=== PATIENT | male | born 1955 | race Caucasian/White ===

== ENCOUNTER → 2020-02-06 09:28 | Outpatient (BNVA) | payer MEDICARE, MEDICAID, SELFPAY | PROVIDERS: PCP Internal Medicine; Visit Provider Internal Medicine | DX: I48.0 Paroxysmal atrial fibrillation (principal); Z51.81 Encounter for therapeutic drug level monitoring; Z79.01 Long term (current) use of anticoagulants | CPT/HCPCS: 85610 ==

== ENCOUNTER 2020-02-07 07:23 | Outpatient (REF) | payer MEDICARE, MEDICAID, SELFPAY ==
[2020-02-07 08:33] LABS: MANUAL DIFF FLAG NO
[2020-02-07 08:56] LABS: Basophils Percent Auto 0.4 % (0-2); Eosinophils Absolute Auto 0.1 X10*3/uL (0.0-0.4); Eosinophils Percent Auto 1.5 % (0-4); Hematocrit 43.6 % (42-52); Hemoglobin 14.1 g/dl (14.0-18.0); Imm Gran Abs Auto 0.03 X10*3/uL (0.00-0.03); Imm Gran Pct Auto 0.4 % (0.0-0.4); Lymphocytes Absolute Auto 1.2 X10*3/uL (1.2-4.9); Lymphocytes Percent Auto 15.2 % (20-40); Mean Corpuscular HGB Conc 32.3 g/dl (31.0-36.0); Mean Corpuscular Volume 86.7 fL (80-98); Monocytes Absolute Auto 0.7 X10*3/uL (0.1-1.2); Monocytes Percent Auto 8.5 % (2-11); Neutrophils Absolute Auto 5.8 X10*3/uL (2.0-8.3); Platelet Count 163 X10*3/uL (160-400); Red Blood Count 5.03 X10*6/uL (4.60-5.80); Red Cell Distribution Width 13.7 % (11.0-16.0); White Blood Count 7.9 X10*3/uL (4.8-10.8)
[2020-02-07 09:42] LABS: Albumin Level 3.8 g/dL (3.5-5.0); Anion Gap 10 (12-20); Blood Urea Nitrogen 16 mg/dL (9-16); Calcium 8.9 mg/dL (8.4-10.2); Carbon Dioxide 33 mmol/L (22-29); Chloride 103 mmol/L (96-108); Estimated Glomerular Filt Rate > 60; Magnesium 2.2 mg/dL (1.6-2.6); Phosphorus 3.3 mg/dL (2.7-4.5); Potassium 4.3 mmol/l (3.3-5.1); Sodium 142 mmol/L (135-145)
[2020-02-09 23:07] LABS: Calcium (PTHI) 9.1 mg/dL (8.6-10.3); PTHI 69 pg/mL (14-64)
== END 2020-02-07 07:24 | disposition home or self-care (01) ==
LOC: HO.LAB 07:23
PROVIDERS: PCP Internal Medicine; Visit Provider Internal Medicine Hypertension Specialist
DX: I13.10 Hypertensive heart and chronic kidney disease without heart failure, with stage 1 through stage 4 chronic kidney disease, or unspecified chronic kidney disease (principal); N18.2 Chronic kidney disease, stage 2 (mild)
CPT/HCPCS: 36415; 80051; 82040; 82310; 82565; 83735; 83970; 84100; 84520; 85025

== ENCOUNTER → 2020-03-05 09:02 | Outpatient (BNVA) | payer MEDICARE, MEDICAID, SELFPAY | PROVIDERS: PCP Internal Medicine; Visit Provider Internal Medicine | DX: I48.0 Paroxysmal atrial fibrillation (principal); Z51.81 Encounter for therapeutic drug level monitoring; Z79.01 Long term (current) use of anticoagulants | CPT/HCPCS: 85610; 99211 ==

== ENCOUNTER → 2020-04-02 09:10 | Outpatient (BNVA) | payer MEDICARE, MEDICAID, SELFPAY | PROVIDERS: PCP Internal Medicine; Visit Provider Internal Medicine | DX: I48.0 Paroxysmal atrial fibrillation (principal); Z51.81 Encounter for therapeutic drug level monitoring; Z79.01 Long term (current) use of anticoagulants | CPT/HCPCS: 85610; 99211 ==

== ENCOUNTER 2020-04-26 13:03 | Outpatient (REF) | payer MEDICARE, MEDICAID, SELFPAY | END 2020-04-26 13:04 | disposition home or self-care (01) | LOC: HO.LAB 13:03 | PROVIDERS: Visit Provider Internal Medicine | DX: Z20.822 Contact with and (suspected) exposure to COVID-19 (principal) | CPT/HCPCS: 36415; C9803; U0003 ==

== ENCOUNTER → 2020-05-23 08:23 | Outpatient (BNVA) | payer MEDICARE, MEDICAID, SELFPAY | PROVIDERS: PCP Internal Medicine; Visit Provider Internal Medicine | DX: I48.0 Paroxysmal atrial fibrillation (principal); Z51.81 Encounter for therapeutic drug level monitoring; Z79.01 Long term (current) use of anticoagulants | CPT/HCPCS: 85610; 99211 ==

== ENCOUNTER → 2020-06-06 08:16 | Outpatient (BNVA) | payer MEDICARE, MEDICAID, SELFPAY | PROVIDERS: PCP Internal Medicine; Visit Provider Internal Medicine | DX: I48.0 Paroxysmal atrial fibrillation (principal); Z51.81 Encounter for therapeutic drug level monitoring; Z79.01 Long term (current) use of anticoagulants | CPT/HCPCS: 85610; 99211 ==

== ENCOUNTER → 2020-07-04 08:04 | Outpatient (BNVA) | payer MEDICARE, MEDICAID, SELFPAY | PROVIDERS: PCP Internal Medicine; Visit Provider Internal Medicine | DX: I48.0 Paroxysmal atrial fibrillation (principal); Z51.81 Encounter for therapeutic drug level monitoring; Z79.01 Long term (current) use of anticoagulants | CPT/HCPCS: 85610; 99211 ==

== ENCOUNTER → 2020-08-01 08:00 | Outpatient (BNVA) | payer MEDICARE, MEDICAID, SELFPAY | PROVIDERS: PCP Internal Medicine; Visit Provider Internal Medicine | DX: I48.0 Paroxysmal atrial fibrillation (principal); Z79.01 Long term (current) use of anticoagulants; Z51.81 Encounter for therapeutic drug level monitoring | CPT/HCPCS: 85610; 99211 ==

== ENCOUNTER → 2020-08-22 08:01 | Outpatient (BNVA) | payer MEDICARE, MEDICAID, SELFPAY | PROVIDERS: PCP Internal Medicine; Visit Provider Internal Medicine | DX: I48.0 Paroxysmal atrial fibrillation (principal); Z51.81 Encounter for therapeutic drug level monitoring; Z79.01 Long term (current) use of anticoagulants | CPT/HCPCS: 85610; 99211 ==

== ENCOUNTER → 2020-09-19 07:57 | Outpatient (BNVA) | payer MEDICARE, MEDICAID, SELFPAY | PROVIDERS: PCP Internal Medicine; Visit Provider Internal Medicine | DX: I48.0 Paroxysmal atrial fibrillation (principal); Z51.81 Encounter for therapeutic drug level monitoring; Z79.01 Long term (current) use of anticoagulants | CPT/HCPCS: 85610; 99211 ==

== ENCOUNTER → 2020-10-17 08:03 | Outpatient (BNVA) | payer MEDICARE, MEDICAID, SELFPAY | PROVIDERS: PCP Internal Medicine; Visit Provider Internal Medicine | DX: I48.0 Paroxysmal atrial fibrillation (principal); Z51.81 Encounter for therapeutic drug level monitoring; Z79.01 Long term (current) use of anticoagulants | CPT/HCPCS: 85610; 99211 ==

== ENCOUNTER → 2020-11-14 08:00 | Outpatient (BNVA) | payer MEDICARE, MEDICAID, SELFPAY | PROVIDERS: PCP Internal Medicine; Visit Provider Internal Medicine | DX: I48.0 Paroxysmal atrial fibrillation (principal); Z79.01 Long term (current) use of anticoagulants; Z51.81 Encounter for therapeutic drug level monitoring | CPT/HCPCS: 85610; 99211 ==

== ENCOUNTER 2020-11-15 13:40 | Outpatient (REF) | payer MEDICARE, MEDICAID, SELFPAY ==
--- NOTE | ~2020-11-15 | US_ITS ---
EXAMINATION: US VENOUS ULTRASOUND WITH DOPPLER LOWER EXTREMITY, LEFT CLINICAL INFORMATION: Venous stasis ulcer left lower extremity. Assess for occult DVT. COMPARISON: Lower extremity reflux venous ultrasound 07/12/2018. TECHNIQUE: Ultrasound of the deep veins is performed from the hip to the calf with compression sonography and color and pulse Doppler assessment. Spectral analysis with color-flow imaging is performed. Evaluation of the calf veins is limited due to bandaging and body habitus. FINDINGS: There is normal venous compression and respiratory variation and augmented flow. The visualized common femoral vein, superficial femoral vein, profunda femoral vein, popliteal vein, and the trifurcation region shows no evidence of deep venous thrombosis. Evaluation of the calf veins is limited due to bandaging and body habitus. No visible popliteal fossa cyst or soft tissue fluid collection. US/US venous duplex LE LT IMPRESSION: 1. No DVT demonstrated in the left lower extremity. 2. If the patient's symptoms persist, followup ultrasound in 5 days 7 days might be of value to exclude proximal propagation from a non-visualized calf vein.
== END 2020-11-15 13:41 | disposition home or self-care (01) ==
LOC: HO.HMGCX 13:40
PROVIDERS: PCP Internal Medicine; Visit Provider Emergency Medicine
DX: R60.0 Localized edema (principal); M79.89 Other specified soft tissue disorders; I87.2 Venous insufficiency (chronic) (peripheral)
CPT/HCPCS: 93971

== ENCOUNTER 2020-11-22 07:58 | Outpatient (RCR) | payer MEDICARE, MEDICAID, SELFPAY | END 2021-01-01 15:47 | disposition home or self-care (01) | LOC: HO.WCC 07:58 | PROVIDERS: PCP Internal Medicine; Visit Provider Physician Assistant | DX: I87.333 Chronic venous hypertension (idiopathic) with ulcer and inflammation of bilateral lower extremity (principal); L97.812 Non-pressure chronic ulcer of other part of right lower leg with fat layer exposed; L97.221 Non-pressure chronic ulcer of left calf limited to breakdown of skin; Z79.01 Long term (current) use of anticoagulants; Z87.891 Personal history of nicotine dependence | CPT/HCPCS: 11042; 29581; 97597; 99212; 99213 ==

== ENCOUNTER → 2020-12-12 08:00 | Outpatient (BNVA) | payer MEDICARE, MEDICAID, SELFPAY | PROVIDERS: PCP Internal Medicine; Visit Provider Internal Medicine | DX: I48.0 Paroxysmal atrial fibrillation (principal); Z51.81 Encounter for therapeutic drug level monitoring; Z79.01 Long term (current) use of anticoagulants | CPT/HCPCS: 85610; 99211 ==

== ENCOUNTER → 2020-12-26 13:25 | Outpatient (BNVA) | payer MEDICARE, MEDICAID, SELFPAY | PROVIDERS: PCP Internal Medicine; Visit Provider Surgery Vascular Surgery | DX: I83.228 Varicose veins of left lower extremity with both ulcer of other part of lower extremity and inflammation (principal) | CPT/HCPCS: 99212 ==

== ENCOUNTER 2021-01-08 07:53 | Outpatient (REF) | payer MEDICARE, MEDICAID, SELFPAY ==
--- NOTE | ~2021-01-08 | US_ITS ---
EXAMINATION: RIGHT and LEFT LOWER EXTREMITY VENOUS ULTRASOUND (Reflux Exam) CLINICAL INDICATION: leg pain and varicose veins. COMPARISON: Previous exam October 2020 TECHNIQUE: Color flow triplex imaging and compression Doppler was performed to evaluate both the deep and the superficial systems bilaterally. To evaluate the superficial system, the examination was performed in the upright position. Color-flow Doppler ultrasound and compression ultrasound were utilized. In addition, maneuvers were utilized to demonstrate reflux. FINDINGS: 1. DEEP VENOUS ULTRASOUND OF THE RIGHT LOWER EXTREMITY: Respiratory variation, normal compression and augmented flow are noted in the right common femoral vein as well as the right popliteal vein and there is no evidence of deep venous thrombosis at these locations. There is no evidence of reflux in the deep system in either the common femoral vein or the popliteal vein. There is no evidence of a Eric's cyst. 2. SUPERFICIAL ULTRASOUND WITH DOPPLER OF RIGHT LOWER EXTREMITY: The right great saphenous vein at the saphenofemoral junction measures 6 mm, at the mid thigh 3 mm, [id number] 2 mm, [id number] 4 mm, at mid calf 3 mm and at the ankle measures 3 mm. There is right great saphenous vein measuring 1.5 seconds below the knee, 2.6 seconds at mid calf and 1.1 seconds at the ankle. There is an accessory lateral greater saphenous vein that measures 4 mm and does not demonstrate reflux.. The right small saphenous vein measures 2-3 mm and shows no reflux. There is a leather colorer in the distal calf that measures 3 mm and does not demonstrate reflux and there is a varicosity in the proximal thigh that measures 4 mm and does not demonstrate reflux. 3. DEEP VENOUS ULTRASOUND OF THE LEFT LOWER EXTREMITY: Respiratory variation, normal compression and augmented flow are noted in the left common femoral vein as well as the left popliteal vein and there is no evidence of deep venous thrombosis at these locations. There is no evidence of reflux in the deep system in either the common femoral vein or the popliteal vein. . There is no evidence of a Eric's cyst. 4. SUPERFICIAL ULTRASOUND WITH DOPPLER OF LEFT LOWER EXTREMITY: Left great saphenous vein at the saphenofemoral junction measures 7 mm, at the mid thigh 4 mm, xhjzt-zhm-jguq 3 mm, mssnj-ggp-ogvp 1 mm. The left greater saphenous vein in not seen midcalf and ankle. There is left greater saphenous vein reflux measuring 1.8 seconds at the saphenofemoral junction, 2.4 seconds mid thigh, 3.4 seconds above the knee and 3.3 seconds at the knee. There is an accessory left lateral greater saphenous vein that measures 5 mm and does not demonstrate reflux. The left small saphenous vein measures 3 mm and shows no reflux. There is a varicosity in the proximal thigh that measures 4 mm and demonstrates 1.9 seconds reflux. There are additional varicosities in the mid and distal thigh that measure 3 to 4 mm and do not demonstrate reflux. US/US venous duplex LE BI IMPRESSION: 1. No evidence of reflux or thrombus in the common femoral veins or popliteal veins bilaterally. 2. Bilateral greater saphenous vein reflux.
== END 2021-01-08 07:54 | disposition home or self-care (01) ==
LOC: HO.US 07:53
PROVIDERS: PCP Internal Medicine; Visit Provider Surgery Vascular Surgery
DX: I83.893 Varicose veins of bilateral lower extremities with other complications (principal); I83.12 Varicose veins of left lower extremity with inflammation
CPT/HCPCS: 93970

== ENCOUNTER → 2021-01-09 08:02 | Outpatient (BNVA) | payer MEDICARE, MEDICAID, SELFPAY | PROVIDERS: PCP Internal Medicine; Visit Provider Internal Medicine | DX: I48.0 Paroxysmal atrial fibrillation (principal); Z51.81 Encounter for therapeutic drug level monitoring; Z79.01 Long term (current) use of anticoagulants | CPT/HCPCS: 85610; 99211 ==

== ENCOUNTER → 2021-01-30 08:46 | Outpatient (BNVA) | payer MEDICARE, MEDICAID, SELFPAY | PROVIDERS: PCP Internal Medicine; Visit Provider Surgery Vascular Surgery | DX: I83.12 Varicose veins of left lower extremity with inflammation (principal) | CPT/HCPCS: 99212 ==

== ENCOUNTER → 2021-02-06 08:03 | Outpatient (BNVA) | payer MEDICARE, MEDICAID, SELFPAY | PROVIDERS: PCP Internal Medicine; Visit Provider Internal Medicine | DX: I48.0 Paroxysmal atrial fibrillation (principal); Z51.81 Encounter for therapeutic drug level monitoring; Z79.01 Long term (current) use of anticoagulants | CPT/HCPCS: 85610; 99211 ==

== ENCOUNTER → 2021-02-21 07:32 | Outpatient (BNVA) | payer MEDICARE, MEDICAID, SELFPAY | PROVIDERS: PCP Internal Medicine; Visit Provider Surgery Vascular Surgery | DX: I83.12 Varicose veins of left lower extremity with inflammation (principal) | CPT/HCPCS: 36482 ==

== ENCOUNTER 2021-02-24 14:16 | Outpatient (REF) | payer MEDICARE, MEDICAID, SELFPAY ==
--- NOTE | ~2021-02-24 | US_ITS ---
EXAMINATION: US VENOUS ULTRASOUND WITH DOPPLER LOWER EXTREMITY, LEFT CLINICAL INFORMATION: Post vena seal procedure. COMPARISON: Previous exam 01/08/2021 TECHNIQUE: Ultrasound of the deep veins is performed from the hip to the calf with compression sonography and color and pulse Doppler assessment. Spectral analysis with color-flow imaging is performed. FINDINGS: There is normal venous compression and respiratory variation and augmented flow. The visualized common femoral vein, superficial femoral vein, profunda femoral vein, popliteal vein, and the trifurcation region shows no evidence of deep venous thrombosis. There is echogenic material seen in the left greater saphenous vein post vena seal procedure. This extends to 6.7 cm from the saphenofemoral junction. The left greater saphenous vein is closed US/US venous duplex LE LT IMPRESSION: No DVT demonstrated in the left lower extremity.
== END 2021-02-24 14:17 | disposition home or self-care (01) ==
LOC: HO.HMGCX 14:16
PROVIDERS: PCP Internal Medicine; Visit Provider Surgery Vascular Surgery
DX: M79.605 Pain in left leg (principal)
CPT/HCPCS: 93971

== ENCOUNTER 2021-02-26 08:26 | Outpatient (REF) | payer MEDICARE, MEDICAID, SELFPAY ==
[2021-02-26 09:14] LABS: Appearance Urine HAZY; Color Urine YELLOW; Glucose Urine UA NEG (NEG); Leukocyte Esterase Urine NEG (NEG); Nitrite Urine NEG (NEG); Specific Gravity - Urine 1.015 (1.005-1.025); Urine Blood NEG (NEG); Urine Ketones NEG (NEG); Urine Protein NEG (NEG-TRACE)
[2021-02-26 09:21] LABS: Anion Gap 9 (12-20); Blood Urea Nitrogen 12 mg/dL (9-16); Carbon Dioxide 30 mmol/L (22-29); Chloride 106 mmol/L (96-108); Estimated Glomerular Filt Rate > 60; Potassium 4.3 mmol/L (3.3-5.1); Sodium 141 mmol/L (135-145)
[2021-02-26 09:37] LABS: Creatinine Urine 79.71 mg/dL; Protein/Creatinine Ratio, Ur 0.13 (<0.2); Total Protein Urine Random 10 mg/dL (<12)
== END 2021-02-26 08:27 | disposition home or self-care (01) ==
LOC: HO.LAB 08:26
PROVIDERS: Internal Medicine Hypertension Specialist; Visit Provider Psychiatry & Neurology Neurology
DX: I13.10 Hypertensive heart and chronic kidney disease without heart failure, with stage 1 through stage 4 chronic kidney disease, or unspecified chronic kidney disease (principal); E66.01 Morbid (severe) obesity due to excess calories
CPT/HCPCS: 36415; 80051; 81003; 82310; 82565; 84156; 84520

== ENCOUNTER → 2021-03-06 08:02 | Outpatient (BNVA) | payer MEDICARE, MEDICAID, SELFPAY | PROVIDERS: PCP Internal Medicine; Visit Provider Internal Medicine | DX: I83.12 Varicose veins of left lower extremity with inflammation (principal); I48.0 Paroxysmal atrial fibrillation; R23.8 Other skin changes; E66.01 Morbid (severe) obesity due to excess calories; Z87.891 Personal history of nicotine dependence; Z51.81 Encounter for therapeutic drug level monitoring; Z79.01 Long term (current) use of anticoagulants | CPT/HCPCS: 85610; 99211; 99212 ==

== ENCOUNTER → 2021-03-12 08:22 | Outpatient (BNVA) | payer MEDICARE, MEDICAID, SELFPAY | PROVIDERS: PCP Internal Medicine; Visit Provider Internal Medicine | DX: I48.0 Paroxysmal atrial fibrillation (principal); Z51.81 Encounter for therapeutic drug level monitoring; Z79.01 Long term (current) use of anticoagulants | CPT/HCPCS: 85610; 99211 ==

== ENCOUNTER → 2021-03-21 08:29 | Outpatient (BNVA) | payer MEDICARE, MEDICAID, SELFPAY | PROVIDERS: PCP Internal Medicine; Visit Provider Internal Medicine | DX: I48.0 Paroxysmal atrial fibrillation (principal); Z51.81 Encounter for therapeutic drug level monitoring; Z79.01 Long term (current) use of anticoagulants | CPT/HCPCS: 85610; 99211 ==

== ENCOUNTER 2021-11-04 13:53 | Outpatient (RCR) | payer MEDICARE, MEDICAID, SELFPAY | END 2021-12-01 14:03 | disposition home or self-care (01) | LOC: HO.WCC 13:53 | PROVIDERS: PCP Internal Medicine; Visit Provider Physician Assistant | DX: I87.332 Chronic venous hypertension (idiopathic) with ulcer and inflammation of left lower extremity (principal); I87.321 Chronic venous hypertension (idiopathic) with inflammation of right lower extremity; L97.822 Non-pressure chronic ulcer of other part of left lower leg with fat layer exposed; I73.9 Peripheral vascular disease, unspecified; I10 Essential (primary) hypertension; Z87.891 Personal history of nicotine dependence | CPT/HCPCS: 11042; 97597; 97598; 99212 ==

== ENCOUNTER 2022-03-02 08:27 | Outpatient (REF) | payer MEDICARE, MEDICAID, SELFPAY ==
[2022-03-02 09:36] LABS: Anion Gap 13 (12-20); Blood Urea Nitrogen 15 mg/dL (9-16); Calcium 9.4 mg/dL (8.4-10.2); Carbon Dioxide 29 mmol/L (22-29); Chloride 102 mmol/L (96-108); Estimated Glomerular Filt Rate > 60; Glucose Random 93 mg/dL (60-115); Potassium 4.4 mmol/L (3.3-5.1); Sodium 140 mmol/L (135-145)
[2022-03-02 10:47] LABS: Creatinine Urine 58.83 mg/dL; Protein/Creatinine Ratio, Ur 0.31 (<0.2); Total Protein Urine Random 18 mg/dL (<12)
== END 2022-03-02 08:28 | disposition home or self-care (01) ==
LOC: HO.LAB 08:27
PROVIDERS: PCP Internal Medicine; Visit Provider Internal Medicine Hypertension Specialist
DX: I10 Essential (primary) hypertension (principal)
CPT/HCPCS: 36415; 80048; 84156

== ENCOUNTER 2022-11-03 11:06 | Outpatient (REF) | payer MEDICARE, MEDICAID, SELFPAY ==
[2022-11-03 13:37] LABS: MANUAL DIFF FLAG NO
[2022-11-03 13:59] LABS: Basophils Percent Auto 0.7 % (0-2); Eosinophils Absolute Auto 0.2 X10*3/uL (0.0-0.4); Eosinophils Percent Auto 4.1 % (0-4); Hematocrit 43.3 % (42.0-52.0); Hemoglobin 13.5 g/dl (14.0-18.0); Imm Gran Abs Auto 0.01 X10*3/uL (0.00-0.03); Imm Gran Pct Auto 0.2 % (0.0-0.4); Mean Corpuscular HGB Conc 31.2 g/dl (31.0-36.0); Mean Corpuscular Hemoglobin 26.6 pg (27.0-33.0); Mean Corpuscular Volume 85.4 fL (80.0-98.0); Mean Platelet Volume 11.3 fL (9.4-12.4); Monocytes Absolute Auto 0.6 X10*3/uL (0.1-1.2); Monocytes Percent Auto 9.9 % (2-11); Neutrophils Percent Auto 68.1 % (45-73); Platelet Count 190 X10*3/uL (160-400); Red Blood Count 5.07 X10*6/uL (4.60-5.80); Red Cell Distribution Width 14.3 % (11.0-16.0); White Blood Count 5.8 X10*3/uL (4.8-10.8)
[2022-11-03 14:16] LABS: Estimated Average Glucose 114 mg/dL; Hemoglobin A1C 130.2328 umol/L; Hemoglobin A1c % 5.6 %
[2022-11-03 18:06] LABS: Alanine Aminotransferase 8 U/L (0-40); Albumin Level 3.7 g/dL (3.5-5.0); Alkaline Phosphatase 94 U/L (39-117); Anion Gap 12 (12-20); Aspartate Amino Transferase 14 U/L (5-37); Bilirubin Direct 0.4 mg/dL (0.0-0.5); Bilirubin Total 0.8 mg/dL (0.0-1.0); Blood Urea Nitrogen 9 mg/dL (9-16); Calcium 9.6 mg/dL (8.4-10.2); Carbon Dioxide 31 mmol/L (22-29); Chloride 102 mmol/L (96-108); Cholesterol 122 mg/dL; Estimated Glomerular Filt Rate > 60; Glucose Random 94 mg/dL (60-115); HDL Cholesterol 45 mg/dL; LDL Cholesterol Calculated 66 mg/dl; Potassium 4.2 mmol/L (3.3-5.1); Sodium 141 mmol/L (135-145); Total Protein 6.8 g/dL (6.5-8.0); Triglycerides 56 mg/dL
== END 2022-11-03 11:07 | disposition home or self-care (01) ==
LOC: HO.HHCL 11:06
PROVIDERS: Visit Provider Internal Medicine
DX: I10 Essential (primary) hypertension (principal); E66.01 Morbid (severe) obesity due to excess calories; Z79.899 Other long term (current) drug therapy; Z68.42 Body mass index [BMI] 45.0-49.9, adult
CPT/HCPCS: 36415; 80048; 80061; 80076; 83036; 85025

== ENCOUNTER 2023-03-02 07:21 | Outpatient (REF) | payer MEDICARE, MEDICAID, SELFPAY ==
[2023-03-02 08:46] LABS: Anion Gap 13 (12-20); Blood Urea Nitrogen 13 mg/dL (9-16); Calcium 9.2 mg/dL (8.4-10.2); Carbon Dioxide 32 mmol/L (22-29); Chloride 104 mmol/L (96-108); Estimated Glomerular Filt Rate > 60; Glucose Random 98 mg/dL (60-115); Potassium 4.1 mmol/L (3.3-5.1); Sodium 145 mmol/L (135-145)
== END 2023-03-02 07:22 | disposition home or self-care (01) ==
LOC: HO.LAB 07:21
PROVIDERS: PCP Internal Medicine; Visit Provider Internal Medicine Hypertension Specialist
DX: I10 Essential (primary) hypertension (principal)
CPT/HCPCS: 36415; 80048

== ENCOUNTER 2023-08-31 08:06 | Outpatient (REF) | payer MEDICARE, MEDICAID, SELFPAY ==
[2023-08-31 08:27] LABS: MANUAL DIFF FLAG NO
[2023-08-31 09:02] LABS: Basophils Percent Auto 0.7 % (0-2); Eosinophils Absolute Auto 0.1 X10*3/uL (0.0-0.4); Eosinophils Percent Auto 1.7 % (0-4); Hematocrit 41.3 % (42.0-52.0); Hemoglobin 13.5 g/dl (14.0-18.0); Imm Gran Abs Auto 0.02 X10*3/uL (0.00-0.03); Imm Gran Pct Auto 0.3 % (0.0-0.4); Lymphocytes Percent Auto 17.9 % (20-40); Mean Corpuscular HGB Conc 32.7 g/dl (31.0-36.0); Mean Corpuscular Hemoglobin 27.6 pg (27.0-33.0); Mean Corpuscular Volume 84.3 fL (80.0-98.0); Mean Platelet Volume 11.1 fL (9.4-12.4); Monocytes Absolute Auto 0.5 X10*3/uL (0.1-1.2); Monocytes Percent Auto 9.1 % (2-11); Neutrophils Absolute Auto 4.1 x10*3/uL (2.0-8.3); Neutrophils Percent Auto 70.3 % (45-73); Platelet Count 153 X10*3/uL (160-400); Red Cell Distribution Width 14.6 % (11.0-16.0); White Blood Count 5.8 X10*3/uL (4.8-10.8)
[2023-08-31 09:47] LABS: Anion Gap 15 (12-20); Blood Urea Nitrogen 11 mg/dL (9-16); Calcium 9.7 mg/dL (8.4-10.2); Carbon Dioxide 26 mmol/L (22-29); Chloride 105 mmol/L (96-108); Estimated Glomerular Filt Rate > 60; Sodium 142 mmol/L (135-145); Uric Acid 5.9 mg/dL (3.4-7.0)
[2023-08-31 09:52] LABS: Parathyroid Hormone Intact 124.5 pg/mL (8.7-77.1)
[2023-08-31 10:02] LABS: Vitamin D 25-OH Total 40.4 ng/mL (>30)
[2023-09-04 13:38] LABS: Renin 1.16 ng/mL/h (0.25-5.82)
== END 2023-08-31 08:07 | disposition home or self-care (01) ==
LOC: HO.LAB 08:06
PROVIDERS: PCP Internal Medicine; Visit Provider Internal Medicine
DX: I10 Essential (primary) hypertension (principal)
CPT/HCPCS: 36415; 80051; 82088; 82306; 82310; 82565; 83970; 84244; 84520; 84550; 85025

== ENCOUNTER → 2023-11-16 08:26 | Outpatient (REF) | payer MEDICARE, MEDICAID, SELFPAY ==
--- NOTE | 2023-11-16 08:31 | CA_ITS ---
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 The visually estimated ejection fraction is between 60-65%. 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 - The left atrium is severely dilated. - No obvious valvular pathology seen on this study. Findings Procedure Information Contrast agent, definity, is being given per protocol without apparent complications. The quality of the study was technically difficult. The study quality is limited by patients body habitus. Left Ventricle Normal left ventricular cavity size. There is mildly increased left ventricular wall thickness. The left ventricular systolic function is normal. The visually estimated ejection fraction is between 60-65%. Diastolic function is indeterminate on the basis of available data. 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 Right Ventricle Mildly increased right ventricular cavity size. There is moderately decreased right ventricular systolic function. Atria The left atrium is severely dilated. The right atrium is normal in size. Aortic Valve There is a normal trileaflet aortic valve. There is no aortic valve stenosis. There is no aortic valve regurgitation. Mitral Valve There is mild mitral annular calcification. There is trace mitral valve regurgitation. There is no mitral valve stenosis. Pulmonic Valve The pulmonic valve is likely normal. Tricuspid Valve Normal tricuspid valve structure. There is trace tricuspid valve regurgitation. Tricuspid regurgitation envelope is inadequate for calculation of right ventricular systolic pressure. Great Vessels The asc aorta is normal in size. Venous The inferior vena cava was not well visualized. Pericardium/Pleural There is a trivial pericardial effusion. Prior Study Comparison No significant change compared to prior study dated: 10/30/2019. Due to image quality difficult to compare, but wall motion probably similar on image comparison. Recommendations, Care & Conclusions No obvious valvular pathology seen on this study. Measurements 2D Linear Measurements IVSd: 1.18 0.6-0.9/0.6-1.0 cm LVIDd: 5.49 3.9-5.3/4.2-5.9 cm LVIDd Index: 2.63 2.4-3.2/2.2-3.1 cm/m2 LVIDs: 3.08 2.0-3.6 cm LVPWd: 1.07 0.7-1.1 cm LA Diam: 5.00 2.7-3.8/3.0-4.0 cm LAIDs Index: 2.39 1.5-2.3 cm/m2 LV Mass: 310.14 67-162/88-224 g LV Mass Index: 148.39 43-95/49-115 g/m2 LVOT Diam: 2.00 3.0+(-)1.3 cm 2D Systolic Function EF 4C: 73.80 >55% EF 2C: 61.00 >55% Mitral Valve MV Pk E: 1.35 MV Decel Time: 274.00 E'Medial: 5.43 E/E' Med: 24.90 Aortic Valve AoV Pk Arile: 1.72 AoV Mn Ariel: 1.05 AoV VTI: 0.36 AoV Pk Grad: 12.00 Aov Mn Grad: 6.00 KARLIE Cont.VTI: 2.30 LVOT LVOT Pk Ariel: 1.09 LVOT Mn Ariel: 0.77 LVOT VTI: 0.27 LVOT Pk Grad: 5.00 LVOT Mn Grad: 3.00 LVOT Diam: 2.00 LVOT Area: 3.14 Diastolic Function MV Pk E: 1.35 E'Medial: 5.43 E/E' Med: 24.90 Right Ventricle TAPSE (mm): 18.30 Great Vessels Aorta Sinus of Valsalva: 3.20 2.0-3.5 cm Ao Asc: 3.10 2.1-3.4 cm Pulmonary Valve PV Pk Ariel: 1.03 Peak PV Grad: 4.00 Updated in Other Vendor System with Status of Final Andrew Cheung MD electronically signed on 11/16/2023 1:28:19 PM with status of Final
== END ==
LOC: HO.CARD 08:26
PROVIDERS: PCP Internal Medicine; Visit Provider Internal Medicine
DX: I48.21 Permanent atrial fibrillation (principal)
CPT/HCPCS: 93306; Q9957

== ENCOUNTER → 2023-11-16 08:31 | Outpatient (BNV) | payer MEDICARE, MEDICAID, SELFPAY | PROVIDERS: PCP Internal Medicine; Visit Provider Internal Medicine | DX: I25.3 Aneurysm of heart (principal); I34.81 Nonrheumatic mitral (valve) annulus calcification | CPT/HCPCS: 93306 ==

== ENCOUNTER 2024-03-27 08:03 | Outpatient (REF) | payer MEDICARE, MEDICAID, SELFPAY ==
[2024-03-27 08:21] LABS: MANUAL DIFF FLAG NO
[2024-03-27 09:16] LABS: Appearance Urine Clear; Color Urine Yellow; Glucose Urine UA Negative (Negative); Leukocyte Esterase Urine Negative (Negative); Nitrite Urine Negative (Negative); PH 8.5 (5.0-9.0); Urine Blood Negative (Negative); Urine Ketones Negative (Negative); Urine Protein Negative (Neg-Trace)
[2024-03-27 09:17] LABS: Estimated Average Glucose 111 mg/dL; Hemoglobin A1C 138.5461 umol/L; Hemoglobin A1c % 5.5 % (<6.0); Total Hemoglobin (HGBA1C) 3736.3554 umol/L
[2024-03-27 09:19] LABS: Basophils Absolute Auto 0.1 X10*3/uL (0.0-0.2); Eosinophils Absolute Auto 0.1 X10*3/uL (0.0-0.4); Eosinophils Percent Auto 1.4 % (0-4); Hematocrit 44.7 % (42.0-52.0); Hemoglobin 14.9 g/dl (14.0-18.0); Imm Gran Abs Auto 0.02 X10*3/uL (0.00-0.03); Imm Gran Pct Auto 0.3 % (0.0-0.4); Lymphocytes Absolute Auto 1.5 X10*3/uL (1.2-4.9); Lymphocytes Percent Auto 23.8 % (20-40); Mean Corpuscular HGB Conc 33.3 g/dl (31.0-36.0); Mean Corpuscular Hemoglobin 29.6 pg (27.0-33.0); Mean Corpuscular Volume 88.9 fL (80.0-98.0); Mean Platelet Volume 11.6 fL (9.4-12.4); Monocytes Absolute Auto 0.6 X10*3/uL (0.1-1.2); Monocytes Percent Auto 8.9 % (2-11); Neutrophils Percent Auto 64.6 % (45-73); Platelet Count 146 X10*3/uL (160-400); Red Blood Count 5.03 X10*6/uL (4.60-5.80); Red Cell Distribution Width 13.2 % (11.0-16.0); White Blood Count 6.3 X10*3/uL (4.8-10.8)
[2024-03-27 09:42] LABS: Anion Gap 10 (12-20); Blood Urea Nitrogen 13 mg/dL (9-16); Carbon Dioxide 31 mmol/L (22-29); Chloride 105 mmol/L (96-108); Estimated Glomerular Filt Rate > 60; Iron 90 mcg/dL (45-160); Magnesium 2.1 mg/dL (1.6-2.6); Percent Iron Saturation 36 % (15-50); Phosphorus 2.9 mg/dL (2.7-4.5); Potassium 3.8 mmol/L (3.3-5.1); Sodium 142 mmol/L (135-145); Total Iron Binding Capacity 248 mcg/dL (228-428); Unsaturated Iron Binding 158 ug/dL; Uric Acid 5.8 mg/dL (3.4-7.0)
[2024-03-27 09:43] LABS: Parathyroid Hormone Intact 99.5 pg/mL (8.7-77.1)
[2024-03-27 09:54] LABS: Creatinine Urine 18.38 mg/dL; Microalbum/Creatinine Ratio Ur 168.6 ug/mg cr (<30); Total Protein Urine Random < 7 mg/dL (<12)
[2024-03-27 09:58] LABS: Ferritin 108 ng/mL (20-250); Vitamin D 25-OH Total 35.3 ng/mL (>30)
== END 2024-03-27 08:04 | disposition home or self-care (01) ==
LOC: HO.LAB 08:03
PROVIDERS: PCP Internal Medicine; Visit Provider Internal Medicine
DX: I10 Essential (primary) hypertension (principal); Z13.1 Encounter for screening for diabetes mellitus
CPT/HCPCS: 36415; 80051; 81003; 82043; 82306; 82310; 82565; 82570; 82728; 83036; 83540; 83735; 83970; 84100; 84156; 84520; 84550; 85025

== ENCOUNTER 2024-04-16 11:24 | Inpatient (IN) | payer MEDICARE, MEDICAID, SELFPAY ==
--- NOTE | ~2024-04-16 | XR_ITS ---
CLINICAL HISTORY: sob Chest radiographs, 2 views Comparison: CR - CHEST 2 VIEWS [id number] - 04/10/13 00:00 EST Findings: The heart is enlarged. Aortic arch calcifications. Pulmonary vascularity is prominent. Consolidative airspace opacities are present within the left mid and lower lung zones. This is present within the left upper lobe extending along the major fissure. Patchy airspace opacities within the right lung base. No significant pleural effusion. No pneumothorax. IMPRESSION: 1. Consolidative airspace disease within the left upper and lower lobes. Patchy airspace disease within the right lung base. 2. Cardiomegaly and pulmonary vascular congestion. This document has been electronically signed by: Luis Valentine DO on 04/16/2024 12:41:34
[2024-04-16 11:44] VITALS: BP 231/77; PULSE 66; RESP 24; TEMP 37.2; O2SAT 82; BMI 43.4
--- NOTE | 2024-04-16 11:44 | ED_ITS ---
HPI - General Adult General Chief complaint: Dyspnea Stated complaint: SOB, Cough, weakness Time Seen by Provider: 04/16/24 12:05 Source: patient Mode of arrival: ambulatory Limitations: no limitations History of Present Illness ED Provider: DR. Puri HPI narrative: A 68-year-old male history of hypertension, AFib on Eliquis, former smoker quit 40 years ago came in for evaluation of difficulty breathing, and coughing for 1 week constantly with dark colored phlegm. No fever, no chills patient been having a difficulty breathing with exertion or when he tries to lay flat, normally legs are slightly swollen which patient did not repaired any worsening of the swelling. No chest pain, no fever, no chills, no sick contacts, no recent travel. Related Data Home Medications ?Medication ?Instructions ?Recorded ?Confirmed IRON PO 08/22/20 03/21/21 acetaminophen 650 mg 650 mg PO Q8H PRN 08/22/20 03/21/21 tablet,extended release amlodipine 10 mg tablet 10 mg PO DAILY 08/22/20 03/21/21 baclofen 10 mg tablet 10 mg PO BID 08/22/20 03/21/21 carvedilol 6.25 mg tablet 6.25 mg PO BID 08/22/20 03/21/21 furosemide 40 mg tablet 40 mg PO DAILY 08/22/20 03/21/21 lisinopril 20 mg tablet 20 mg PO DAILY 08/22/20 03/21/21 simvastatin 20 mg tablet 20 mg PO BEDTIME 08/22/20 03/21/21 cholecalciferol (vitamin D3) 25 25 mcg PO DAILY 01/14/21 03/21/21 mcg (1,000 unit) capsule apixaban 5 mg tablet (Eliquis) 5 mg PO BID 03/21/21 03/21/21 Previous Rx's ?Medication ?Instructions ?Recorded warfarin 5 mg tablet 5 mg PO DAILY #90 tabs 02/06/20 Allergies Allergy/AdvReac Type Severity Reaction Status Date / Time No Known Allergies Allergy Verified 04/16/24 11:45 [No Known Allergies*] Review of Systems 2 Review of Systems: All other systems are reviewed and are negative Constitutional: Reports as per HPI and Reports no additional constitutional complaints Eyes: Reports as per HPI and Reports no additional eye complaints Reports system reviewed and no additional complaints, except as documented Cardiovascular: Reports as per HPI and Reports no additional cardiovascular complaints Respiratory: Reports as per HPI and Reports no additional respiratory complaints Gastrointestinal: Reports as per HPI and Reports no additional gastrointestinal complaints Genitourinary: Reports no additional female genitourinary complaints Musculoskeletal: Reports no additional musculoskeletal complaints Skin/Breast: Reports system reviewed and no additional complaints, except as docu Psychiatric: Reports no additional psychiatric complaints Endocrine: Reports no additional endocrine complaints Hematologic/Lymphatic: Reports no additional hematologic/lymphatic complaints Allergic/Immunologic: Reports no additional allergic/immunologic complaints Reports system reviewed and no additional complaints, except as documented and Reports Abnormal speech present [facility] Social History Social History Patient Tobacco Use Status: Former Tobacco user Smoked in Last 30 Days: No Use of substances other than those prescribed or required for medical reasons: No Advance Directives: No Advance Directives Information Provided: No Physical Exam ED Vital Signs: Vital Signs - 24 hr 04/16/24 11:44 04/16/24 13:33 Temperature 98.9 F 98.7 F Pulse Rate 66 60 Respiratory Rate 24 H 18 Blood Pressure 231/77 H 163/67 H Pulse Oximetry 82 L 92 Oxygen Delivery Method Room Air Nasal Cannula Oxygen Flow Rate 2 BMI result Body Mass Index 43.4 Vital signs have been reviewed and appear to be correct. Blood pressure elevated. Heart rate normal. Respiratory rate normal. Temperature normal. Oxygen saturation normal. Appearance: Alert. Oriented X3. No acute distress. Head: Normal external exam. Normocephalic. Atraumatic. No Velasquez signs noted. No raccoon eyes noted Eyes: PERRLA. EOMI. Conjunctiva and sclera normal. Eyelids normal. ENT: TM's Normal. Pharynx normal. Uvula midline. Moist mucous membranes. No trismus noted. No drooling noted. No muffled voice noted. Neck: Normal inspection. Neck supple. FROM. No adenopathy. Thyroid Normal. No meningeal signs. No neck mass noted. CVS: Normal heart rate and rhythm. Heart sound normal. No murmurs noted. Pulses normal throughout. Respiratory: No respiratory distress. Painless inspiration. Breath sounds normal. No wheezes/rales/rhonchi noted. Chest nontender. No accessory muscle usage noted or decreased air movement noted. Abdomen: Soft and nontender. Bowel sounds normal in all 4 quadrants. No distention noted. No organomegaly noted. No visible injury noted. Back: No CVA tenderness. Full range of motion noted. Skin: Skin warm and dry. Normal skin color. Normal skin turgor. No rashes/lesions/lacerations noted. Extremities: +1 lower extremity edema bilaterally, Extremities exhibit normal range of motion. Extremities nontender. Neuro: Oriented X 3. Cranial nerve exam: II-XII are grossly intact No motor deficit. No sensory deficit. Reflexes normal. Course Course Course Narrative: This is a Rapid Medical Examination (RME) performed by Judith Matthews PA-C in triage. Full HPI, ROS, assessment and treatment plan per primary provider in the Main ED. 68 yo male hx of afib on eliquis and HTN here for eval of SOB, orthopnea and generalized weakness x4 days. sleeping w/ HOB raised and on side. cannot lie flat. he is not dependent on O2 at home. no known hx of COPD or CHF - takes lasix at home. + satting 82% on RA - placed on 3L nasal cannula. brought back to main ED. Plan: labs, viral swabs, cxr Reevaluation(s) Reevaluation #1: SOB, initially hypoxic on room air. 1. Multilobar pneumonia start on ceftriaxone and doxycycline. 2. CHF received Lasix/nitro. 3. Continue with supplemental O2 2 L nasal cannula. 4. Admit. Time: 13:36 Medications Administered Discontinued Medications Generic Name Dose Route Start Last Admin Trade Name Freq PRN Reason Stop Dose Admin Ceftriaxone Sodium 1 gm 04/16/24 12:14 04/16/24 13:14 Ceftriaxone Sodium 1 Gm Vial IVPUSH 04/16/24 12:15 1 gm ONCE ONE Administration Medical Decision Making Differential Diagnosis Differential Diagnoses: The differential diagnosis associated with the presentation includes (Pneumonia, pneumothorax, pleural effusion, congestive heart failure, electrolyte derangement, severe anemia.) Admission/Observation Consideration of admission/observation: Escalation of care including admission/observation considered Consult Healthcare Provider Management of the patient was discussed with: Hospitalist (Dr. Avery) Lab Data [facility] Lab Attestation statement: I reviewed the patient's lab results. 04/16/24 12:05 04/16/24 12:05 Labs: Lab Results 04/16/24 04/16/24 Range/Units 12:05 13:08 WBC 7.8 (4.8-10.8) X10*3/uL RBC 5.45 (4.60-5.80) X10*6/uL Hgb 15.9 (14.0-18.0) g/dl Hct 46.3 (42.0-52.0) % MCV 85.0 (80.0-98.0) fL MCH 29.2 (27.0-33.0) pg MCHC 34.3 (31.0-36.0) g/dl RDW 12.3 (11.0-16.0) % Plt Count 212 D (160-400) X10*3/uL MPV 10.1 (9.4-12.4) fL Immature Gran % (Auto) 0.5 H (0.0-0.4) % Neut % (Auto) 81.4 H (45-73) % Lymph % (Auto) 8.1 L (20-40) % Gregg % (Auto) 8.9 (2-11) % Eos % (Auto) 0.6 (0-4) % Baso % (Auto) 0.5 (0-2) % Lymph # (Auto) 0.6 L (1.2-4.9) X10*3/uL Gregg # (Auto) 0.7 (0.1-1.2) X10*3/uL Eos # (Auto) 0.1 (0.0-0.4) X10*3/uL Baso # (Auto) 0.0 (0.0-0.2) X10*3/uL Abs Immat Gran (auto) 0.04 H (0.00-0.03) X10*3/uL Absolute Neuts (auto) 6.3 (2.0-8.3) x10*3/uL Absolute Nucleated RBC 0.000 (0.0-0.012) X10*3/uL Nucleated RBC % (auto) 0.0 (0.0-0.2) /100WBC PT 17.3 H (10.9-12.4) SEC INR 1.5 H (0.9-1.1) Sodium 140 (135-145) mmol/L Potassium 4.1 (3.3-5.1) mmol/L Chloride 102 (96-108) mmol/L Carbon Dioxide 29 (22-29) mmol/L Anion Gap 13 (12-20) BUN 8 L (9-16) mg/dL Creatinine 0.75 (0.5-1.4) mg/dL Estim Creat Clear Calc 103.3 Estimated GFR > 60 Random Glucose 116 H (60-115) mg/dL Lactic Acid 0.9 (0.5-2.0) mmol/L Calcium 9.2 (8.4-10.2) mg/dL Magnesium 1.8 (1.6-2.6) mg/dL Total Bilirubin 1.7 H (0.0-1.0) mg/dL AST 38 H (5-37) U/L ALT 27 (0-40) U/L Alkaline Phosphatase 89 (39-117) U/L Troponin I High Sens 20.3 (<3.5-35.0) ng/L B-Natriuretic Peptide 526 H (<100) pg/mL Total Protein 7.1 (6.5-8.0) g/dL Albumin 3.5 (3.5-5.0) g/dL Influenza Type A (PCR) NEGATIVE (Negative) Influenza Type B (PCR) NEGATIVE (Negative) RSV RNA Qual (PCR) NEGATIVE (Negative) SARS-CoV-2 RNA (RT-PCR) NEGATIVE (Negative) Independent Interpretation I performed an independent interpretation of an: Plain X-Ray (Chest:1. Consolidative airspace disease within the left upper and lower lobes. Patchy airspace disease within the right lung base. 2. Cardiomegaly and pulmonary vascular congestion.) Radiology Impression Discussion of test interpretation with radiology: I have reviewed the radiologist's reading. Discharge Plan Discharge Clinical Impression: Community acquired pneumonia, Congestive heart failure Patient Disposition: Admitted As Inpatient Print Language: Maltese
--- NOTE | 2024-04-16 11:45 | ECG_ITS ---
Test Reason : SOB Blood Pressure : / mmHG Vent. Rate : 056 BPM Atrial Rate : 036 BPM P-R Int : 000 ms QRS Dur : 102 ms QT Int : 444 ms P-R-T Axes : 068 043 077 degrees QTc Int : 428 ms Atrial fibrillation with Premature ventricular complexes Low voltage QRS Septal infarct (cited on or before 29-JAN-2009) Abnormal ECG When compared with ECG of 18-JAN-2012 14:27, Premature ventricular complexes is new Questionable change in initial forces of Septal leads Referred By: Florence Matthews Electronically Signed By:DALTON PRATT MD
[2024-04-16 12:10] LABS: MANUAL DIFF FLAG NO
[2024-04-16 12:13] LABS: Basophils Percent Auto 0.5 % (0-2); Eosinophils Absolute Auto 0.1 X10*3/uL (0.0-0.4); Eosinophils Percent Auto 0.6 % (0-4); Hematocrit 46.3 % (42.0-52.0); Hemoglobin 15.9 g/dl (14.0-18.0); Imm Gran Abs Auto 0.04 X10*3/uL (0.00-0.03); Imm Gran Pct Auto 0.5 % (0.0-0.4); Lymphocytes Absolute Auto 0.6 X10*3/uL (1.2-4.9); Lymphocytes Percent Auto 8.1 % (20-40); Mean Corpuscular HGB Conc 34.3 g/dl (31.0-36.0); Mean Corpuscular Hemoglobin 29.2 pg (27.0-33.0); Mean Platelet Volume 10.1 fL (9.4-12.4); Monocytes Absolute Auto 0.7 X10*3/uL (0.1-1.2); Monocytes Percent Auto 8.9 % (2-11); Neutrophils Absolute Auto 6.3 x10*3/uL (2.0-8.3); Neutrophils Percent Auto 81.4 % (45-73); Platelet Count 212 X10*3/uL (160-400); Red Blood Count 5.45 X10*6/uL (4.60-5.80); Red Cell Distribution Width 12.3 % (11.0-16.0); White Blood Count 7.8 X10*3/uL (4.8-10.8)
[2024-04-16 12:21] LABS: INTERNATIONAL NORM RATIO 1.5 (0.9-1.1); Prothrombin Time 17.3 SEC (10.9-12.4)
[2024-04-16 12:37] LABS: Alanine Aminotransferase 27 U/L (0-40); Albumin Level 3.5 g/dL (3.5-5.0); Alkaline Phosphatase 89 U/L (39-117); Anion Gap 13 (12-20); Aspartate Amino Transferase 38 U/L (5-37); Bilirubin Total 1.7 mg/dL (0.0-1.0); Blood Urea Nitrogen 8 mg/dL (9-16); Calcium 9.2 mg/dL (8.4-10.2); Carbon Dioxide 29 mmol/L (22-29); Chloride 102 mmol/L (96-108); Creatinine Clr Calc Pharmacy 103.3; Estimated Glomerular Filt Rate > 60; Glucose Random 116 mg/dL (60-115); Magnesium 1.8 mg/dL (1.6-2.6); Potassium 4.1 mmol/L (3.3-5.1); Sodium 140 mmol/L (135-145); Total Protein 7.1 g/dL (6.5-8.0)
[2024-04-16 12:38] LABS: B Type Natriuretic Peptide 526 pg/mL (<100)
[2024-04-16 12:46] LABS: Troponin-I High Sensitivity 20.3 ng/L (<3.5-35.0)
[2024-04-16 12:55] LABS: Influenza A PCR NEGATIVE (Negative); Influenza B PCR NEGATIVE (Negative); Resp Syncy Virus RNA Qual PCR NEGATIVE (Negative); SARS COV2 PCR INHOUSE NEGATIVE (Negative)
[2024-04-16] MEDS: cefTRIAXone sodium 1 GM VIAL IVPUSH (13:14)
--- NOTE | 2024-04-16 13:14 | PC.NURSE ---
abx delayed d/t need for BC/lactic
[2024-04-16 13:33] VITALS: BP 163/67; PULSE 60; RESP 18; TEMP 37.1; O2SAT 92
[2024-04-16 13:40] LABS: Lactic Acid 0.9 mmol/L (0.5-2.0)
[2024-04-16] MEDS: Nitroglycerin 2 % Oint 1 GM Packet 1 INCH TRANSDERMA (14:04)
[2024-04-16] MEDS: Doxycycline Hyclate 100 MG in 0.9 % Sodium Chloride 250 ML 166.67 MG IV (14:04)
[2024-04-16] MEDS: Furosemide 40 MG/4 ML VIAL IVPUSH (14:04)
[2024-04-16 14:15] LABS: Appearance Urine Clear; Color Urine Yellow; Glucose Urine UA Negative (Negative); Leukocyte Esterase Urine Negative (Negative); Nitrite Urine Negative (Negative); Specific Gravity - Urine 1.015 (1.005-1.025); UMIC TRIGGER UACC YES; Urine Blood Trace (Negative); Urine Ketones 15 mg/dL (Negative); Urine Protein 100 (2+) mg/dL (Neg-Trace)
[2024-04-16 14:18] LABS: Bacteria Urine None Seen (None Seen); Hyaline Casts Urine 0-2 /LPF (0-2); RBC Urine 0-2 /HPF (0-2); Squamous Epithelial Cell Urine 0-2 /HPF (0-2); WBC Urine 0-5 /HPF (0-5)
--- NOTE | 2024-04-16 14:56 | P.HPHOSP_ITS ---
History of Present Illness Date of Service: 04/16/24 Chief Complaint: Shortness of breath 68-year-old male with a history of hypertension AFib on Eliquis reformed smoker of 40 years presents with difficulty breathing and coughing worsening over the week prior to presenting to the emergency room. States he has no known sick contacts but has brought his sister to multiple physician appointments and did not wear a mask. He states he short of breath with minimal exertion. He denies leg swelling. Review of Systems 2 Review of Systems: Denies chest pain Admits shortness of breath with minimal exertion Denies nausea vomiting diarrhea Denies fever chills PMFSH Social History Patient Tobacco Use Status: Former Tobacco user Smoked in Last 30 Days: No Use of substances other than those prescribed or required for medical reasons: No Advance Directives: No Advance Directives Information Provided: No Meds Allergies Allergy/AdvReac Type Severity Reaction Status Date / Time No Known Allergies Allergy Verified 04/16/24 11:45 [No Known Allergies*] Active Medications: Current Medications Acetaminophen (Acetaminophen 325 Mg Tablet) 650 mg PO Q6H PRN PRN Reason: Pain, Mild 1-3,fever,headache Albuterol/Ipratropium (Albuterol/Iprat 2.5/0.5mg 3 Ml Ampul.Neb) 3 ml INHALE Q4H PRN PRN Reason: Shortness of Breath/Wheezing Calcium Carbonate (Calcium Carbonate 750 Mg Tab.Chew) 750 mg PO Q4H PRN PRN Reason: Heartburn Doxycycline Hyclate 100 mg/ (Sodium Chloride) 250 mls @ 166.67 mls/hr IV ONCE ONE Stop: 04/16/24 14:59 Last Admin: 04/16/24 14:04 Dose: 166.67 mls/hr Magnesium Hydroxide (Milk Of Magnesia 30 Ml Oral.Susp) 30 ml PO DAILY PRN PRN Reason: Constipation Melatonin (Melatonin 3 Mg Tablet) 6 mg PO BEDTIME PRN PRN Reason: Insomnia Ondansetron HCl (Ondansetron Hcl 4 Mg/2 Ml Vial) 4 mg IVPUSH Q8H PRN PRN Reason: Nausea and Vomiting Sodium Chloride (0.9 % Sodium Chloride Flush 3 Ml Syringe) [facility] ?Medication ?Instructions ?Recorded ?Confirmed ?Last Taken ?Type acetaminophen 650 mg 650 mg PO Q8H PRN 08/22/20 03/21/21 Unknown History tablet,extended release amlodipine 10 mg tablet 10 mg PO DAILY 08/22/20 03/21/21 Unknown History carvedilol 6.25 mg tablet 6.25 mg PO BID 08/22/20 03/21/21 Unknown History furosemide 40 mg tablet 40 mg PO DAILY 08/22/20 03/21/21 Unknown History lisinopril 20 mg tablet 20 mg PO DAILY 08/22/20 03/21/21 Unknown History simvastatin 20 mg tablet 20 mg PO BEDTIME 08/22/20 03/21/21 Unknown History cholecalciferol (vitamin D3) 25 25 mcg PO DAILY 01/14/21 03/21/21 Unknown History mcg (1,000 unit) capsule apixaban 5 mg tablet (Eliquis) 5 mg PO BID 03/21/21 03/21/21 Unknown History Physical Exam 2 Vital Signs and Narrative: Vital Signs: Last Vital Signs Temp 98.7 F 04/16/24 13:33 Pulse 60 04/16/24 13:33 Resp 18 04/16/24 13:33 BP 163/67 H 04/16/24 13:33 Pulse Ox 92 04/16/24 13:33 O2 Del Method Nasal Cannula 04/16/24 13:33 O2 Flow Rate 2 04/16/24 13:33 BMI result Body Mass Index 43.4 Const: Other: Awake alert oriented x3 able to speak in full sentences Resp: Other: Diminished at bases with crackles bilaterally. There are diffuse expiratory wheezes Cardio: Other: No S4; positive S1-S2; no S3 murmurs rubs or gallops GI: Other: Soft nontender nondistended normoactive bowel sounds Neuro: Other: Cranial nerves 2-12 grossly intact as tested. Motor is 5/5 all extremities. Sensation is intact Extrem: Other: No edema bilaterally Results Labs 04/16/24 12:05 04/16/24 12:05 Labs: Laboratory Results - last 24 hr 04/16/24 04/16/24 04/16/24 12:05 13:08 14:10 MCV 85.0 MCH 29.2 MCHC 34.3 RDW 12.3 Plt Count 212 D MPV 10.1 Immature Gran % (Auto) 0.5 H Neut % (Auto) 81.4 H Lymph % (Auto) 8.1 L [place] % (Auto) 8.9 Eos % (Auto) 0.6 Baso % (Auto) 0.5 Lymph # (Auto) 0.6 L [place] # (Auto) 0.7 Eos # (Auto) 0.1 Baso # (Auto) 0.0 Abs Immat Gran (auto) 0.04 H Absolute Neuts (auto) 6.3 Absolute Nucleated RBC 0.000 Nucleated RBC % (auto) 0.0 PT 17.3 H INR 1.5 H Anion Gap 13 Estim Creat Clear Calc 103.3 Estimated GFR > 60 Random Glucose 116 H Lactic Acid 0.9 Calcium 9.2 Magnesium 1.8 Total Bilirubin 1.7 H AST 38 H ALT 27 Alkaline Phosphatase 89 Troponin I High Sens 20.3 B-Natriuretic Peptide 526 H Total Protein 7.1 Albumin 3.5 Urine Color Yellow Urine Appearance Clear Urine pH 6.0 Ur Specific [place] 1.015 Urine Protein 100 (2+) H Urine Glucose (UA) Negative Urine Ketones 15 Urine Blood Trace H Urine Nitrite Negative Ur Leukocyte Esterase Negative Urine RBC 0-2 Urine WBC 0-5 Ur Squamous Epith Cells 0-2 Urine Bacteria None Seen Hyaline Casts 0-2 Influenza Type A (PCR) NEGATIVE Influenza Type B (PCR) NEGATIVE RSV RNA Qual (PCR) NEGATIVE SARS-CoV-2 RNA (RT-PCR) NEGATIVE Assessment and Plan (1) Community acquired pneumonia: Qualifiers: Laterality: unspecified laterality Qualified Code(s): J18.9 - Pneumonia, unspecified organism Status: Acute (2) Persistent atrial fibrillation: Status: Acute Plan 68-year-old male with known history of AFib on Eliquis and hypertension presents with worsening shortness of breath over the past week along with sputum production. Workup in ER consistent with bilateral basilar pneumonia 1. Bilateral basilar pneumonia -ceftriaxone/doxycycline (1) -methylprednisolone 60 mg IV q.8 -DuoNebs Q 4 p.r.n. -titrate O2 to maintain sats greater than or equal to 92% 2. Persistent atrial fibrillation -acceptable rate control on current therapies -adjust as indicated -continue Eliquis 3. Hypertension -acceptable control on current therapies -adjust as indicated Full code Eliquis Requires at least 2 midnights going forward of inpatient stay to treat community-acquired pneumonia with IV antibiotics. This can not be achieved a lesser acute setting Quality Stroke Does the patient have a stroke diagnosis?: No VTE Prior VTE?: No VTE Risk Level:: Medical - moderate - high VTE Device Contraindication: Treatment Not Indicated VTE Drug Contraindication: N/A - Med Ordered
[2024-04-16] MEDS: methylPREDNISolone Sod Succ 125 MG/2 ML VIAL 60 MG IVPUSH ×2 (15:27→22:48)
[2024-04-16 15:30] VITALS: BP 166/87; PULSE 61; RESP 16; TEMP 37; O2SAT 92
--- NOTE | 2024-04-16 16:24 | PHA.MEDREC ---
Addendum entered by Destiny Martinez RPh 04/16/24 16:38: reviewed by [facility]. Original Note: Pharmacy Consult ? Medication Reconciliation Pharmacy has completed the medication reconciliation. Spoke to pt to confirm meds.
[2024-04-16 17:44] VITALS: BMI 44.1
[2024-04-16 18:12] VITALS: BP 152/75
[2024-04-16 19:04] VITALS: BP 150/74; PULSE 66; RESP 18; TEMP 37; O2SAT 92
[2024-04-16] MEDS: 0.9 % Sodium Chloride Flush 3 ML SYRINGE IVFLUSH (22:50)
[2024-04-17 03:08] VITALS: BP 172/80; PULSE 56; RESP 18; TEMP 36; O2SAT 94
[2024-04-17 05:54] LABS: Basophils Percent Auto 0.2 % (0-2); Hematocrit 41.9 % (42.0-52.0); Hemoglobin 14.5 g/dl (14.0-18.0); Imm Gran Abs Auto 0.02 X10*3/uL (0.00-0.03); Imm Gran Pct Auto 0.4 % (0.0-0.4); Lymphocytes Absolute Auto 0.4 X10*3/uL (1.2-4.9); Lymphocytes Percent Auto 7.6 % (20-40); MANUAL DIFF FLAG SCAN; Mean Corpuscular HGB Conc 34.6 g/dl (31.0-36.0); Mean Corpuscular Hemoglobin 29.4 pg (27.0-33.0); Mean Platelet Volume 10.3 fL (9.4-12.4); Monocytes Absolute Auto 0.1 X10*3/uL (0.1-1.2); Monocytes Percent Auto 1.5 % (2-11); Neutrophils Absolute Auto 4.8 x10*3/uL (2.0-8.3); Neutrophils Percent Auto 90.3 % (45-73); Platelet Count 217 X10*3/uL (160-400); Red Blood Count 4.93 X10*6/uL (4.60-5.80); Red Cell Distribution Width 12.2 % (11.0-16.0); SCAN SMEAR FLAG 1; White Blood Count 5.3 X10*3/uL (4.8-10.8)
[2024-04-17 06:12] LABS: SLIDE REVIEW VERIFIED
[2024-04-17] MEDS: methylPREDNISolone Sod Succ 125 MG/2 ML VIAL 60 MG IVPUSH ×3 (06:23→23:01)
[2024-04-17 06:26] LABS: Alanine Aminotransferase 26 U/L (0-40); Albumin Level 3.2 g/dL (3.5-5.0); Alkaline Phosphatase 82 U/L (39-117); Anion Gap 18 (12-20); Aspartate Amino Transferase 41 U/L (5-37); Bilirubin Total 0.9 mg/dL (0.0-1.0); Blood Urea Nitrogen 12 mg/dL (9-16); Calcium 8.7 mg/dL (8.4-10.2); Carbon Dioxide 24 mmol/L (22-29); Chloride 103 mmol/L (96-108); Creatinine Clr Calc Pharmacy 107.1; Estimated Glomerular Filt Rate > 60; Glucose Random 141 mg/dL (60-115); Potassium 4.7 mmol/L (3.3-5.1); Sodium 140 mmol/L (135-145); Total Protein 6.8 g/dL (6.5-8.0)
[2024-04-17 08:00] VITALS: BP 173/85; PULSE 58; RESP 18; TEMP 36.2; O2SAT 93
[2024-04-17] MEDS: amLODIPine Besylate 10 MG TABLET PO (08:30)
[2024-04-17] MEDS: Cholecalciferol (Vitamin D3) 25 MCG TABLET PO (08:30)
[2024-04-17] MEDS: lisinopriL 20 MG TABLET PO (08:31)
[2024-04-17] MEDS: Furosemide 40 MG TABLET PO (08:31)
[2024-04-17] MEDS: carvediloL 6.25 MG TABLET PO ×2 (08:31→20:02)
[2024-04-17] MEDS: Apixaban 5 MG TABLET PO ×2 (08:31→20:02)
[2024-04-17] MEDS: 0.9 % Sodium Chloride Flush 3 ML SYRINGE IVFLUSH ×2 (08:35→23:01)
--- NOTE | 2024-04-17 09:36 | MHC.CM.PN ---
IMM DELIVERED PT LIVES WITH SISTER AND USES [facility] FOR MOBILITY. NO SERVICES PRIOR TO ADMISSION. PT DECLINES COMPLETING A HCP AT THIS TIME. PCP DR. MIR. DP: HOME, NO SERVICES IS THE GOAL. PT HAS OWN [facility] HOME. CM WILL CONTINUE TO FOLLOW FOR ANY CHANGE TO DC PLAN/NEEDS
--- NOTE | 2024-04-17 14:00 | P.PNIM_ITS ---
Subjective Subjective Date of Service: 04/17/24 Interval History: Notes improvement overnight. States movement creates less shortness of breath than it did on admission Review of Systems Denies chest pain Admits shortness of breath with minimal exertion Denies nausea vomiting diarrhea Denies fever chills Physical Exam 2 Vital Signs: Vital Signs: Last Vital Signs Temp 97.2 F 04/17/24 08:00 Pulse 58 04/17/24 08:00 Resp 18 04/17/24 08:00 BP 173/85 H 04/17/24 08:00 Pulse Ox 93 04/17/24 08:00 O2 Del Method Nasal Cannula 04/17/24 08:00 O2 Flow Rate 2 04/17/24 08:00 BMI result Body Mass Index 44.1 Const: Other: Awake alert oriented x3 able to speak in full sentences Resp: Other: Diminished at bases with crackles bilaterally. There are diffuse expiratory wheezes Cardio: Other: No S4; positive S1-S2; no S3 murmurs rubs or gallops GI: Other: Soft nontender nondistended normoactive bowel sounds Neuro: Other: Cranial nerves 2-12 grossly intact as tested. Motor is 5/5 all extremities. Sensation is intact Extrem: Other: No edema bilaterally Objective Data Active Medications Acetaminophen (Acetaminophen 325 Mg Tablet) 650 mg PO Q6H PRN PRN Reason: Pain, Mild 1-3,fever,headache Albuterol/Ipratropium (Albuterol/Iprat 2.5/0.5mg 3 Ml Ampul.Neb) 3 ml INHALE Q4H PRN PRN Reason: Shortness of Breath/Wheezing Amlodipine Besylate (Amlodipine Besylate 10 Mg Tablet) 10 mg PO DAILY [facility]; Protocol Last Admin: 04/17/24 08:30 Dose: 10 mg Documented By: RENETTA Apixaban (Apixaban 5 Mg Tablet) 5 mg PO BID HUGO Last Admin: 04/17/24 08:31 Dose: 5 mg Documented By: RENETTA Atorvastatin Calcium (Atorvastatin Calcium 10 Mg Tablet) 10 mg PO BEDTIME [facility] Calcium Carbonate (Calcium Carbonate 750 Mg Tab.Chew) 750 mg PO Q4H PRN PRN Reason: Heartburn Carvedilol (Carvedilol 6.25 Mg Tablet) 6.25 mg PO BID [facility]; Protocol Last Admin: 04/17/24 08:31 Dose: 6.25 mg Documented By: RENETTA Ceftriaxone Sodium (Ceftriaxone Sodium 1 Gm Vial) 1 gm IVPUSH Q24H [facility] Furosemide (Furosemide 40 Mg Tablet) 40 mg PO DAILY [facility]; Protocol Last Admin: 04/17/24 08:31 Dose: 40 mg Documented By: RENETTA Doxycycline Hyclate 100 mg/ (Sodium Chloride) 250 mls @ 166.67 mls/hr IV Q12H [facility] Lisinopril (Lisinopril 20 Mg Tablet) 20 mg PO DAILY [facility]; Protocol Last Admin: 04/17/24 08:31 Dose: 20 mg Documented By: RENETTA Magnesium Hydroxide (Milk Of Magnesia 30 Ml Oral.Susp) 30 ml PO DAILY PRN PRN Reason: Constipation Melatonin (Melatonin 3 Mg Tablet) 6 mg PO BEDTIME PRN PRN Reason: Insomnia Methylprednisolone Sodium Succinate (Methylprednisolone Sod Succ 125 Mg/2 Ml Vial) 60 mg IVPUSH Q8H [facility] Last Admin: 04/17/24 06:23 Dose: 60 mg Documented By: [place] Ondansetron HCl (Ondansetron Hcl 4 Mg/2 Ml Vial) 4 mg IVPUSH Q8H PRN PRN Reason: Nausea and Vomiting Sodium Chloride (0.9 % Sodium Chloride Flush 3 Ml Syringe) 3 ml IVFLUSH QSHIFT [facility] Last Admin: 04/17/24 08:35 Dose: 3 ml Documented By: RENETTA Vitamin D (Cholecalciferol (Vitamin D3) 25 Mcg Tablet) 25 mcg PO DAILY [facility] Last Admin: 04/17/24 08:30 Dose: 25 mcg Documented By: RENETTA Labs 04/17/24 05:22 04/17/24 05:28 Labs: Laboratory Results - last 24 hr 04/16/24 04/17/24 04/17/24 14:10 05:22 05:28 MCV 85.0 MCH 29.4 MCHC 34.6 RDW 12.2 Plt Count 217 MPV 10.3 Immature Gran % (Auto) 0.4 Neut % (Auto) 90.3 H Lymph % (Auto) 7.6 L [place] % (Auto) 1.5 L Eos % (Auto) 0.0 Baso % (Auto) 0.2 Lymph # (Auto) 0.4 L [place] # (Auto) 0.1 Eos # (Auto) 0.0 Baso # (Auto) 0.0 Abs Immat Gran (auto) 0.02 Absolute Neuts (auto) 4.8 Absolute Nucleated RBC 0.000 Nucleated RBC % (auto) 0.0 Smear Tech's Comments VERIFIED Anion Gap 18 Estim Creat Clear Calc 107.1 Estimated GFR > 60 Random Glucose 141 H Calcium 8.7 Total Bilirubin 0.9 AST 41 H ALT 26 Alkaline Phosphatase 82 Total Protein 6.8 Albumin 3.2 L Urine Color Yellow Urine Appearance Clear Urine pH 6.0 Ur Specific [place] 1.015 Urine Protein 100 (2+) H Urine Glucose (UA) Negative Urine Ketones 15 Urine Blood Trace H Urine Nitrite Negative Ur Leukocyte Esterase Negative Urine RBC 0-2 Urine WBC 0-5 Ur Squamous Epith Cells 0-2 Urine Bacteria None Seen Hyaline Casts 0-2 Assessment and Plan (1) Community acquired pneumonia: Status: Acute (2) Persistent atrial fibrillation: Status: Acute Plan 68-year-old male with known history of AFib on Eliquis and hypertension presents with worsening shortness of breath over the past week along with sputum production. Workup in ER consistent with bilateral basilar pneumonia 1. Bilateral basilar pneumonia -ceftriaxone/doxycycline (2) -methylprednisolone 60 mg IV q.8 -DuoNebs Q 4 p.r.n. -titrate O2 to maintain sats greater than or equal to 92% 2. Persistent atrial fibrillation -acceptable rate control on current therapies -adjust as indicated -continue Eliquis 3. Hypertension -acceptable control on current therapies -adjust as indicated Full code Eliquis Quality Stroke Does the patient have a stroke diagnosis?: No VTE Prior VTE?: No VTE Risk Level:: Medical - moderate - high VTE Device Contraindication: Treatment Not Indicated VTE Drug Contraindication: N/A - Med Ordered
[2024-04-17] MEDS: Doxycycline Hyclate 100 MG in 0.9 % Sodium Chloride 250 ML 166.67 MG IV (14:10)
[2024-04-17] MEDS: cefTRIAXone sodium 1 GM VIAL IVPUSH (14:10)
[2024-04-17 15:42] VITALS: BP 132/79; PULSE 63; RESP 12; TEMP 36.2; O2SAT 95
[2024-04-17 19:33] VITALS: BP 159/77; PULSE 59; RESP 17; TEMP 36.1; O2SAT 93
[2024-04-17] MEDS: Atorvastatin Calcium 10 MG TABLET PO (20:02)
[2024-04-18] MEDS: Doxycycline Hyclate 100 MG in 0.9 % Sodium Chloride 250 ML 166.67 MG IV ×2 (01:58→14:05)
[2024-04-18 03:34] VITALS: BP 165/73; PULSE 57; RESP 18; TEMP 36.9; O2SAT 96
[2024-04-18] MEDS: methylPREDNISolone Sod Succ 125 MG/2 ML VIAL 60 MG IVPUSH ×3 (06:21→19:46)
--- NOTE | 2024-04-18 07:40 | P.CDIM_ITS ---
PROVIDER RESPONSE TEXT: To clarify, the appropriate diagnosis supported by the clinical indicators: Morbid obesity QUERY TEXT: PHYSICIAN'S DOCUMENTATION REQUEST Date of Query: 04/17/2024 11:35 AM EST Patient Name: Aly Paiz Admit Date: 04/16/2024 Dear Zain Parada DO, A review of the medical record indicates additional documentation may be needed. Please review below and update the documentation accordingly. Clinical Indicators: Height: 5ft 3in Weight: 113kg BMI: 44.1 Other Clinical Notes Supporting Significance of the BMI: Nursing notes Height and Weight: Extreme obe sity with BMI 44.1kg If possible, please provide an associated diagnosis related to the abnormal BMI, such as: Morbid obesity Obesity Due to excess calories Obesity Due to other cause Specify the other cause Other (explain) Clinically unable to determine (explain) Thank you, Delia Morgan, CCS, CDIS Use of terms such as suspected, likely, concern for, or probable (associated with a specific diagnosi s that is being evaluated, monitored, or treated as if it exists) are acceptable and can be coded in the inpatient se tting, when documented at the time of discharge. Please use your independent medical judgment in providing your response. THIS QUERY IS PART OF THE PERMANENT MEDICAL RECORD
[2024-04-18 08:35] VITALS: BP 182/90
[2024-04-18] MEDS: Furosemide 40 MG TABLET PO (08:36)
[2024-04-18] MEDS: lisinopriL 20 MG TABLET PO (08:36)
[2024-04-18] MEDS: Apixaban 5 MG TABLET PO ×2 (08:36→19:46)
[2024-04-18] MEDS: Cholecalciferol (Vitamin D3) 25 MCG TABLET PO (08:36)
[2024-04-18] MEDS: 0.9 % Sodium Chloride Flush 3 ML SYRINGE IVFLUSH ×2 (08:36→14:06)
[2024-04-18] MEDS: amLODIPine Besylate 10 MG TABLET PO (08:36)
[2024-04-18] MEDS: carvediloL 6.25 MG TABLET PO ×2 (08:36→19:46)
[2024-04-18 08:37] VITALS: PULSE 62; RESP 18; TEMP 36.1; O2SAT 92
[2024-04-18 10:14] VITALS: BP 150/70
--- NOTE | 2024-04-18 13:27 | P.PNIM_ITS ---
Subjective Subjective Date of Service: 04/18/24 Interval History: Still short of breath but improved aeration overall. Cough loose but nonproductive Review of Systems Denies chest pain Admits shortness of breath with minimal exertion Denies nausea vomiting diarrhea Denies fever chills Physical Exam 2 Vital Signs: Vital Signs: Last Vital Signs Temp 97.0 F 04/18/24 08:37 Pulse 62 04/18/24 08:37 Resp 18 04/18/24 08:37 BP 150/70 H 04/18/24 10:14 Pulse Ox 92 04/18/24 08:37 O2 Del Method Nasal Cannula 04/18/24 08:37 O2 Flow Rate 2 04/18/24 08:37 BMI result Body Mass Index 44.1 Const: Other: Awake alert oriented x3 able to speak in full sentences Resp: Other: Diminished at bases with crackles bilaterally. There are diffuse expiratory wheezes Cardio: Other: No S4; positive S1-S2; no S3 murmurs rubs or gallops GI: Other: Soft nontender nondistended normoactive bowel sounds Neuro: Other: Cranial nerves 2-12 grossly intact as tested. Motor is 5/5 all extremities. Sensation is intact Extrem: Other: No edema bilaterally Objective Data Active Medications Acetaminophen (Acetaminophen 325 Mg Tablet) 650 mg PO Q6H PRN PRN Reason: Pain, Mild 1-3,fever,headache Albuterol/Ipratropium (Albuterol/Iprat 2.5/0.5mg 3 Ml Ampul.Neb) 3 ml INHALE Q4H PRN PRN Reason: Shortness of Breath/Wheezing Amlodipine Besylate (Amlodipine Besylate 10 Mg Tablet) 10 mg PO DAILY [facility]; Protocol Last Admin: 04/18/24 08:36 Dose: 10 mg Documented By: RENETTA Apixaban (Apixaban 5 Mg Tablet) 5 mg PO BID [facility] Last Admin: 04/18/24 08:36 Dose: 5 mg Documented By: RENETTA Atorvastatin Calcium (Atorvastatin Calcium 10 Mg Tablet) 10 mg PO BEDTIME [facility] Last Admin: 04/17/24 20:02 Dose: 10 mg Documented By: [place] Calcium Carbonate (Calcium Carbonate 750 Mg Tab.Chew) 750 mg PO Q4H PRN PRN Reason: Heartburn Carvedilol (Carvedilol 6.25 Mg Tablet) 6.25 mg PO BID [facility]; Protocol Last Admin: 04/18/24 08:36 Dose: 6.25 mg Documented By: RENETTA Ceftriaxone Sodium (Ceftriaxone Sodium 1 Gm Vial) 1 gm IVPUSH Q24H [facility] Last Admin: 04/17/24 14:10 Dose: 1 gm Documented By: RENETTA Furosemide (Furosemide 40 Mg/4 Ml Vial) 40 mg IVPUSH BID@0900,1800 [facility]; Protocol Guaifenesin (Guaifenesin [place] 600 Mg Tab.Er.12h) 600 mg PO BID PRN PRN Reason: Cough Doxycycline Hyclate 100 mg/ (Sodium Chloride) 250 mls @ 166.67 mls/hr IV Q12H [facility] Last Infusion: 04/18/24 03:41 Dose: Infused Documented By: EMERSON Lisinopril (Lisinopril 20 Mg Tablet) 20 mg PO DAILY [facility]; Protocol Last Admin: 04/18/24 08:36 Dose: 20 mg Documented By: RENETTA Magnesium Hydroxide (Milk Of Magnesia 30 Ml Oral.Susp) 30 ml PO DAILY PRN PRN Reason: Constipation Melatonin (Melatonin 3 Mg Tablet) 6 mg PO BEDTIME PRN PRN Reason: Insomnia Methylprednisolone Sodium Succinate (Methylprednisolone Sod Succ 125 Mg/2 Ml Vial) 60 mg IVPUSH Q8H [facility] Last Admin: 04/18/24 06:21 Dose: 60 mg Documented By: EM[place] Ondansetron HCl (Ondansetron Hcl 4 Mg/2 Ml Vial) 4 mg IVPUSH Q8H PRN PRN Reason: Nausea and Vomiting Sodium Chloride (0.9 % Sodium Chloride Flush 3 Ml Syringe) 3 ml IVFLUSH QSHIFT [facility] Last Admin: 04/18/24 08:36 Dose: 3 ml Documented By: RENETTA Vitamin D (Cholecalciferol (Vitamin D3) 25 Mcg Tablet) 25 mcg PO DAILY [facility] Last Admin: 04/18/24 08:36 Dose: 25 mcg Documented By: RENETTA Labs 04/17/24 05:22 04/17/24 05:28 Microbiology Microbiology Results: Microbiology 04/16/24 13:08 Blood Culture - Preliminary Blood - Venous No growth after 24 hours. 04/16/24 13:08 Blood Culture - Preliminary Blood - Venous No growth after 24 hours. Assessment and Plan (1) Community acquired pneumonia: Status: Acute (2) Persistent atrial fibrillation: Status: Acute Plan 68-year-old male with known history of AFib on Eliquis and hypertension presents with worsening shortness of breath over the past week along with sputum production. Workup in ER consistent with bilateral basilar pneumonia 1. Bilateral basilar pneumonia -ceftriaxone/doxycycline (3) -methylprednisolone 60 mg IV q.8 -DuoNebs Q 4 p.r.n. -titrate O2 to maintain sats greater than or equal to 92% 2. Persistent atrial fibrillation -acceptable rate control on current therapies -adjust as indicated -continue Eliquis 3. Hypertension -pressures are slightly elevated in backdrop of bibasilar crackles -switch Lasix to IV and follow clinically -adjust as indicated Full code Eliquis Quality Stroke Does the patient have a stroke diagnosis?: No VTE Prior VTE?: No VTE Risk Level:: Medical - moderate - high VTE Device Contraindication: Treatment Not Indicated VTE Drug Contraindication: N/A - Med Ordered
[2024-04-18] MEDS: cefTRIAXone sodium 1 GM VIAL IVPUSH (14:06)
[2024-04-18] MEDS: guaiFENesin LA 600 MG TAB.ER.12H PO (14:06)
[2024-04-18 15:47] VITALS: BP 134/70; PULSE 59; RESP 18; TEMP 36.1; O2SAT 94
[2024-04-18] MEDS: Furosemide 40 MG/4 ML VIAL IVPUSH (17:32)
[2024-04-18] MEDS: Atorvastatin Calcium 10 MG TABLET PO (19:46)
[2024-04-18 20:00] VITALS: BP 150/71; PULSE 54; RESP 18; TEMP 36.1; O2SAT 94
[2024-04-19] MEDS: Doxycycline Hyclate 100 MG in 0.9 % Sodium Chloride 250 ML 166.67 MG IV ×2 (01:14→13:59)
[2024-04-19 04:00] VITALS: BP 148/70; PULSE 57; RESP 20; TEMP 36.4; O2SAT 93
[2024-04-19] MEDS: methylPREDNISolone Sod Succ 125 MG/2 ML VIAL 60 MG IVPUSH (05:58)
[2024-04-19 06:36] LABS: Basophils Percent Auto 0.1 % (0-2); Hemoglobin 15.7 g/dl (14.0-18.0); Imm Gran Abs Auto 0.07 X10*3/uL (0.00-0.03); Imm Gran Pct Auto 0.5 % (0.0-0.4); Lymphocytes Absolute Auto 0.6 X10*3/uL (1.2-4.9); Lymphocytes Percent Auto 4.3 % (20-40); MANUAL DIFF FLAG SCAN; Mean Corpuscular HGB Conc 34.1 g/dl (31.0-36.0); Mean Corpuscular Hemoglobin 29.7 pg (27.0-33.0); Mean Platelet Volume 10.5 fL (9.4-12.4); Monocytes Absolute Auto 0.5 X10*3/uL (0.1-1.2); Monocytes Percent Auto 3.7 % (2-11); Neutrophils Absolute Auto 13.1 x10*3/uL (2.0-8.3); Neutrophils Percent Auto 91.4 % (45-73); Platelet Count 290 X10*3/uL (160-400); Red Blood Count 5.29 X10*6/uL (4.60-5.80); Red Cell Distribution Width 12.4 % (11.0-16.0); SCAN SMEAR FLAG 1; White Blood Count 14.3 X10*3/uL (4.8-10.8)
[2024-04-19 06:58] LABS: Alanine Aminotransferase 31 U/L (0-40); Albumin Level 3.4 g/dL (3.5-5.0); Alkaline Phosphatase 78 U/L (39-117); Anion Gap 15 (12-20); Aspartate Amino Transferase 35 U/L (5-37); Bilirubin Total 0.6 mg/dL (0.0-1.0); Blood Urea Nitrogen 29 mg/dL (9-16); Calcium 9.8 mg/dL (8.4-10.2); Carbon Dioxide 32 mmol/L (22-29); Chloride 101 mmol/L (96-108); Estimated Glomerular Filt Rate > 60; Glucose Fasting 143 mg/dL (60-99); Potassium 4.7 mmol/L (3.3-5.1); Sodium 143 mmol/L (135-145); Total Protein 7.2 g/dL (6.5-8.0)
[2024-04-19 07:12] LABS: SLIDE REVIEW VERIFIED
[2024-04-19 07:55] VITALS: BP 144/81; PULSE 55; RESP 16; TEMP 36.8; O2SAT 95
[2024-04-19] MEDS: Furosemide 40 MG/4 ML VIAL IVPUSH (09:10)
[2024-04-19] MEDS: carvediloL 6.25 MG TABLET PO ×2 (09:10→20:58)
[2024-04-19] MEDS: Cholecalciferol (Vitamin D3) 25 MCG TABLET PO (09:10)
[2024-04-19] MEDS: Apixaban 5 MG TABLET PO ×2 (09:10→20:59)
[2024-04-19] MEDS: lisinopriL 20 MG TABLET PO (09:10)
[2024-04-19] MEDS: amLODIPine Besylate 10 MG TABLET PO (09:10)
[2024-04-19] MEDS: methylPREDNISolone Sod Succ 40 MG/ML VIAL IVPUSH ×2 (09:11→20:57)
[2024-04-19] MEDS: 0.9 % Sodium Chloride Flush 3 ML SYRINGE IVFLUSH ×3 (09:13→20:58)
[2024-04-19] MEDS: guaiFENesin LA 600 MG TAB.ER.12H PO ×2 (09:15→20:59)
--- NOTE | 2024-04-19 12:20 | HO.PM.IMPN ---
Subjective Subjective Date of Service: 04/19/24 Interval History: Feeling better denies PND, no orthopnea, unable to cough up phlegm , denies fever, no chills, no acute events overnight. Review of Systems All other system reviewed and are negative. Physical Exam Vital Signs: Vital Signs: Last Vital Signs Temp 98.2 F 04/19/24 07:55 Pulse 55 04/19/24 07:55 Resp 16 04/19/24 07:55 BP 144/81 H 04/19/24 07:55 Pulse Ox 95 04/19/24 07:55 O2 Del Method Nasal Cannula 04/19/24 07:55 O2 Flow Rate 2 04/19/24 07:55 BMI result Body Mass Index 44.1 Const: Other: General resting comfortably in no acute distress. Neck no JVD. CVS regular rate rhythm, Respiratory lungs scattered rhonchi ,no respiratory distress, no crackles Gastrointestinal abdomen soft, non tender, bowel sounds audible Extremities no edema. Neuro non focal Skin chronic skin changes lower extremity Appropriate affect Objective Data Active Medications Acetaminophen (Acetaminophen 325 Mg Tablet) 650 mg PO Q6H PRN PRN Reason: Pain, Mild 1-3,fever,headache Albuterol/Ipratropium (Albuterol/Iprat 2.5/0.5mg 3 Ml Ampul.Neb) 3 ml INHALE Q4H PRN PRN Reason: Shortness of Breath/Wheezing Amlodipine Besylate (Amlodipine Besylate 10 Mg Tablet) 10 mg PO DAILY [facility]; Protocol Last Admin: 04/19/24 09:10 Dose: 10 mg Documented By: ANJELICA Apixaban (Apixaban 5 Mg Tablet) 5 mg PO BID [facility] Last Admin: 04/19/24 09:10 Dose: 5 mg Documented By: ANJELICA Atorvastatin Calcium (Atorvastatin Calcium 10 Mg Tablet) 10 mg PO BEDTIME [facility] Last Admin: 04/18/24 19:46 Dose: 10 mg Documented By: ANSON Calcium Carbonate (Calcium Carbonate 750 Mg Tab.Chew) 750 mg PO Q4H PRN PRN Reason: Heartburn Carvedilol (Carvedilol 6.25 Mg Tablet) 6.25 mg PO BID [facility]; Protocol Last Admin: 04/19/24 09:10 Dose: 6.25 mg Documented By: ANJELICA Ceftriaxone Sodium (Ceftriaxone Sodium 1 Gm Vial) 1 gm IVPUSH Q24H [facility] Last Admin: 04/18/24 14:06 Dose: 1 gm Documented By: RENETTA Furosemide (Furosemide 40 Mg/4 Ml Vial) 40 mg IVPUSH BID@0900,1800 [facility]; Protocol Last Admin: 04/19/24 09:10 Dose: 40 mg Documented By: ANJELICA Guaifenesin (Guaifenesin La 600 Mg Tab.Er.12h) 600 mg PO BID PRN PRN Reason: Cough Last Admin: 04/19/24 09:15 Dose: 600 mg Documented By: ANJELICA Doxycycline Hyclate 100 mg/ (Sodium Chloride) 250 mls @ 166.67 mls/hr IV Q12H [facility] Last Infusion: 04/19/24 02:45 Dose: Infused Documented By: ANSON Lisinopril (Lisinopril 20 Mg Tablet) 20 mg PO DAILY [facility]; Protocol Last Admin: 04/19/24 09:10 Dose: 20 mg Documented By: ANJELICA Magnesium Hydroxide (Milk Of Magnesia 30 Ml Oral.Susp) 30 ml PO DAILY PRN PRN Reason: Constipation Melatonin (Melatonin 3 Mg Tablet) 6 mg PO BEDTIME PRN PRN Reason: Insomnia Methylprednisolone Sodium Succinate (Methylprednisolone Sod Succ 40 Mg/Ml Vial) 40 mg IVPUSH BID [facility] Last Admin: 04/19/24 09:11 Dose: 40 mg Documented By: ANJELICA Ondansetron HCl (Ondansetron Hcl 4 Mg/2 Ml Vial) 4 mg IVPUSH Q8H PRN PRN Reason: Nausea and Vomiting Sodium Chloride (0.9 % Sodium Chloride Flush 3 Ml Syringe) 3 ml IVFLUSH QSHIFT [facility] Last Admin: 04/19/24 09:13 Dose: 3 ml Documented By: ANJELICA Vitamin D (Cholecalciferol (Vitamin D3) 25 Mcg Tablet) 25 mcg PO DAILY [facility] Last Admin: 04/19/24 09:10 Dose: 25 mcg Documented By: ANJELICA Labs 04/19/24 06:08 04/19/24 06:08 Labs: Laboratory Results - last 24 hr 04/19/24 06:08 MCV 87.0 MCH 29.7 MCHC 34.1 RDW 12.4 Plt Count 290 D MPV 10.5 Immature Gran % (Auto) 0.5 H Neut % (Auto) 91.4 H Lymph % (Auto) 4.3 L [place] % (Auto) 3.7 Eos % (Auto) 0.0 Baso % (Auto) 0.1 Lymph # (Auto) 0.6 L [place] # (Auto) 0.5 Eos # (Auto) 0.0 Baso # (Auto) 0.0 Abs Immat Gran (auto) 0.07 H Absolute Neuts (auto) 13.1 H Absolute Nucleated RBC 0.000 Nucleated RBC % (auto) 0.0 Smear Tech's Comments VERIFIED Anion Gap 15 Estim Creat Clear Calc 99.0 Estimated GFR > 60 Fasting Glucose 143 H Calcium 9.8 D Total Bilirubin 0.6 AST 35 ALT 31 Alkaline Phosphatase 78 Total Protein 7.2 Albumin 3.4 L Microbiology Microbiology Results: Microbiology 04/16/24 13:08 Blood Culture - Preliminary Blood - Venous No growth after 48 hours. 04/16/24 13:08 Blood Culture - Preliminary Blood - Venous No growth after 48 hours. Assessment and Plan (1) Persistent atrial fibrillation: Status: Acute (2) Congestive heart failure: Status: Acute Plan 68-year-old male with known history of AFib on Eliquis and hypertension presents with worsening shortness of breath over the past week along with sputum production. Workup in ER consistent with bilateral basilar pneumonia 1. Multifocal pneumonia: -feeling better on iv ceftriaxone/doxycycline d4 -will wean IV methylprednisolone on 60 mg IV q.8, will change to 40 mg q.12, change DuoNeb to scheduled q.4 hours while awake -titrate O2 to maintain sats greater than or equal to 92%, not on home O2 -add scheduled cough medication 2. Persistent atrial fibrillation -acceptable rate control on Coreg -continue Eliquis 3. Hypertension - continue Coreg, Norvasc and lisinopril follow BP 4. Acute diastolic CHF on IV Lasix 40mg bid , denies orthopnea, no PND, admission BNP 526 follow clinical course /BMP and BNP, appears euvolemic, DC IV Lasix today. Full code Eliquis Quality Stroke Does the patient have a stroke diagnosis?: No VTE Prior VTE?: No VTE Risk Level:: Medical - moderate - high VTE Device Contraindication: Treatment Not Indicated VTE Drug Contraindication: N/A - Med Ordered
[2024-04-19] MEDS: cefTRIAXone sodium 1 GM VIAL IVPUSH (12:53)
[2024-04-19] MEDS: Albuterol/Iprat 2.5/0.5MG 3 ML AMPUL.NEB INHALE (15:26)
[2024-04-19 15:27] VITALS: PULSE 59; RESP 18; O2SAT 94
[2024-04-19 15:50] VITALS: BP 156/72; PULSE 52; RESP 18; TEMP 36; O2SAT 93
[2024-04-19 19:10] VITALS: BP 146/69; PULSE 52; RESP 18; TEMP 36.2; O2SAT 94
[2024-04-19] MEDS: Atorvastatin Calcium 10 MG TABLET PO (20:58)
[2024-04-20 03:15] VITALS: BP 157/92; PULSE 51; RESP 16; TEMP 36; O2SAT 94
[2024-04-20] MEDS: Doxycycline Hyclate 100 MG in 0.9 % Sodium Chloride 250 ML 166.67 MG IV (03:15)
[2024-04-20 06:19] LABS: Alanine Aminotransferase 37 U/L (0-40); Albumin Level 3.3 g/dL (3.5-5.0); Alkaline Phosphatase 71 U/L (39-117); Anion Gap 13 (12-20); Aspartate Amino Transferase 32 U/L (5-37); Bilirubin Total 0.5 mg/dL (0.0-1.0); Blood Urea Nitrogen 26 mg/dL (9-16); Calcium 9.4 mg/dL (8.4-10.2); Carbon Dioxide 33 mmol/L (22-29); Chloride 100 mmol/L (96-108); Creatinine Clr Calc Pharmacy 95.4; Estimated Glomerular Filt Rate > 60; Glucose Fasting 174 mg/dL (60-99); Potassium 4.2 mmol/L (3.3-5.1); Sodium 142 mmol/L (135-145); Total Protein 6.4 g/dL (6.5-8.0)
[2024-04-20 06:22] LABS: B Type Natriuretic Peptide 199 pg/mL (<100)
[2024-04-20 07:23] VITALS: BP 153/75; PULSE 50; RESP 18; TEMP 36.2; O2SAT 95
[2024-04-20 08:31] VITALS: PULSE 50; RESP 18; O2SAT 97
[2024-04-20] MEDS: Albuterol/Iprat 2.5/0.5MG 3 ML AMPUL.NEB INHALE ×2 (08:31→12:05)
[2024-04-20] MEDS: amLODIPine Besylate 10 MG TABLET PO (08:38)
[2024-04-20] MEDS: methylPREDNISolone Sod Succ 40 MG/ML VIAL IVPUSH (08:38)
[2024-04-20] MEDS: Nystatin Powder 15 GM BOTTLE 1 APPL TOPICAL (08:39)
[2024-04-20] MEDS: lisinopriL 20 MG TABLET PO (08:39)
[2024-04-20] MEDS: 0.9 % Sodium Chloride Flush 3 ML SYRINGE IVFLUSH (08:39)
[2024-04-20] MEDS: Cholecalciferol (Vitamin D3) 25 MCG TABLET PO (08:39)
[2024-04-20] MEDS: guaiFENesin LA 600 MG TAB.ER.12H PO (08:39)
[2024-04-20] MEDS: carvediloL 6.25 MG TABLET PO (08:39)
[2024-04-20] MEDS: Apixaban 5 MG TABLET PO (08:39)
--- NOTE | 2024-04-20 09:42 | PM.DS ---
DS: Providers Provider Date of Service: 04/20/24 Date of admission: 04/16/24 14:51 Date of discharge: 04/20/24 Primary care physician: Darlene Blas MD Consults: 04/16/24 17:38 Consult to Wound Care Routine Reason for consultation: abdominal fold MASD DS: Diagnosis Discharge Diagnosis (1) Persistent atrial fibrillation: Status: Acute (2) Congestive heart failure: Status: Acute DS: Summary Hospital Course Hospital Course: History of presenting illness Date of Service: 04/16/24 Chief Complaint: Shortness of breath 68-year-old male with a history of hypertension AFib on Eliquis reformed smoker of 40 years presents with difficulty breathing and coughing worsening over the week prior to presenting to the emergency room. States he has no known sick contacts but has brought his sister to multiple physician appointments and did not wear a mask. He states he short of breath with minimal exertion. He denies leg swelling. Hospital course: 68-year-old male with known history of AFib on Eliquis and hypertension presents with worsening shortness of breath over the past week along with sputum production. Workup in ER consistent with bilateral basilar pneumonia And elevated BNP 526 admitted for acute hypoxic respiratory failure due to multifocal pneumonia and acute diastolic CHF 1. Acute hypoxic respiratory failure due to Multifocal pneumonia with likely undiagnosed COPD treated with IV ceftriaxone ,iv doxycycline, DuoNeb , cough medication and IV steroids patient responded well to to above treatment, hypoxia resolved will transition to by mouth antibiotics to finish a total 5 day course of antibiotics and discharged home on tapering dose of steroids , albuterol and recommend outpatient follow-up with PCP and pulmonology for further testing. 2. Persistent atrial fibrillation -acceptable rate control on Coreg and Eliquis 3. Hypertension suboptimal blood pressure control on Coreg, Norvasc 10 mg and lisinopril 20 mg, therefore will increase dose of lisinopril to 30 mg daily recommend close outpatient follow-up with primary care physician. 4. Acute diastolic CHF noted to have elevated BNP, treated with IV Lasix 40 mg b.i.d. with good response patient denies orthopnea, no PND recommend good blood pressure control and outpatient follow-up with PCP. Time Attestation Discharge Coordination Time (in mins): 40 Quality: Safe Use of Opioids Does Pt have an Active Cancer Diagnosis on the Problem List?: No Quality: Stroke Does the patient have a stroke diagnosis?: No Physical Exam Vital Signs: Vital Signs: Last Vital Signs Temp 97.1 F 04/20/24 07:23 Pulse 50 04/20/24 08:31 Resp 18 04/20/24 08:31 BP 153/75 H 04/20/24 07:23 Pulse Ox 95 04/20/24 07:23 O2 Del Method Nasal Cannula 04/20/24 07:23 O2 Flow Rate 2 04/20/24 07:23 BMI result Body Mass Index 44.1 Const: Other: General resting co mfortably in no ac [place] distress. Ne ck no JVD. CVS re gular rate rhythm, Respiratory lungs CTA ,no respirato ry distress, no cr ackles Gastrointes tinal abdomen soft , non tender, roque l sounds audible E xtremities no eliseo ma. Neuro non foca l Skin chronic sk in changes lower e xtremity Appropria te affect DS: Data Data Completed and Pending Labs on day of discharge: Laboratory Results - last 24 hr 04/20/24 05:45 Sodium 142 Potassium 4.2 Chloride 100 Carbon Dioxide 33 H Anion Gap 13 BUN 26 H Creatinine 0.82 Estim Creat Clear Calc 95.4 Estimated GFR > 60 Fasting Glucose 174 H Calcium 9.4 Total Bilirubin 0.5 AST 32 ALT 37 Alkaline Phosphatase 71 B-Natriuretic Peptide 199 H Total Protein 6.4 L Albumin 3.3 L Preliminary micro results at discharge 04/16/24 13:08 Blood Culture - Preliminary Blood - Venous No growth after 48 hours. 04/16/24 13:08 Blood Culture - Preliminary Blood - Venous No growth after 48 hours. Discharge Plan Discharge Anticipated Discharge Date/Time: 04/20/24 09:22 Patient Disposition: Home, Self-Care Discharge Diagnosis: Acute diastolic CHF Multifocal pneumonia Referrals: Darlene Cherry MD [Primary Care Provider] - 1 Week Discharge Medications: New guaifenesin [Mucinex] 600 mg Tablet Extended Release 12hr 600 mg PO BID Qty: 14 0RF doxycycline monohydrate 100 mg capsule 100 mg PO BID Qty: 4 0RF cefuroxime axetil 500 mg tablet 500 mg PO Q12H Qty: 4 0RF lisinopril 30 mg tablet 30 mg PO DAILY Qty: 30 0RF prednisone 20 mg tablet 20 mg PO DAILY Qty: 4 0RF albuterol sulfate 90 mcg/actuation HFA aerosol inhaler 2 puff inhalation Q4-6H PRN (Reason: shortness of breath or wheezing) Qty: 8.5 0RF Continued cholecalciferol (vitamin D3) 25 mcg (1,000 unit) capsule 25 mcg PO DAILY carvedilol 6.25 mg tablet 6.25 mg PO BID acetaminophen 650 mg tablet extended release 650 mg PO Q8H PRN (Reason: Pain) furosemide 40 mg tablet 40 mg PO DAILY amlodipine 10 mg tablet 10 mg PO DAILY simvastatin 20 mg tablet 20 mg PO BEDTIME Eliquis 5 mg tablet 5 mg PO BID Discontinued lisinopril 20 mg tablet 20 mg PO DAILY Discharge Orders: Discharge Order (Routine); Ordered 04/20/24 Ordered By: Dana Blum Diet: Low salt diet Activity on Discharge: As tolerated Stand Alone Forms: Patient Portal Discharge page Print Language: [place] Citizen Care Plan Goals: Multifocal pneumonia take Ceftin and doxycycline 1 tablet twice daily for 2 more days Take cough medication as directed Take prednisone 1 tablet daily with food for 4 days Increase dose of lisinopril to 30 mg daily Restrict salt Health Concerns: Hypertension suboptimal blood pressure control increase dose of lisinopril to 30 mg daily Monitor blood pressure closely Follow low-calorie diet Plan of Treatment: Follow-up with primary care physician call for appointment in 1-2 weeks Assessment: As above
--- NOTE | 2024-04-20 09:53 | MHC.CM.PN ---
DP: PT HAS BEEN MEDICALLY CLEARED FOR DC HOME, NO SERVICES. PT HAS OWN RIDE HOME.
[2024-04-20 10:35] VITALS: PULSE 48; PULSE 55; O2SAT 87; O2SAT 89; O2SAT 91
[2024-04-20] MEDS: lisinopriL 10 MG TABLET PO (10:54)
--- NOTE | 2024-04-20 11:03 | P.F2F_ITS ---
Service Date Service Date: 04/20/24 Encounter Date of encounter: 04/20/24 Reasons for Services Signs and symptoms assessed: Hypoxia/shortness of breath and elevated blood pressure Reason for assisted: medication management Homebound: Leaving the home is medically contraindicated at this time without the asist of a device and/or another person due th the listed conditions above and below. Reason homebound: weakness related to hospital stay Certification: Based on the above findings, I certify that this patient is confined to the home and needs intermittent assisted care, physical therapy and/or speech therapy, or continues to need occupational therapy. The patient is under my care, and I have initiated the establishment of the plan of care. The patient will be followed by a physician who will periodically review the plan of care. Time Spent With Patient Time: Total time managing care of this patient today ____ minutes.
[2024-04-20 12:05] VITALS: PULSE 50; RESP 18; O2SAT 91
== END 2024-04-20 13:04 | disposition home health service (06) | DRG 193 ==
LOC: HO.ED 13:35 → HO.EDOVER 14:57 → HO.S3 16:03
PROVIDERS: Physician Assistant Medical; Admitting Provider Hospitalist; Emergency Provider Emergency Medicine; PCP Internal Medicine; Visit Provider Hospitalist
DX: J18.9 Pneumonia, unspecified organism (principal); I50.31 Acute diastolic (congestive) heart failure; J96.01 Acute respiratory failure with hypoxia; Z68.41 Body mass index [BMI] 40.0-44.9, adult; J44.0 Chronic obstructive pulmonary disease with (acute) lower respiratory infection; I48.19 Other persistent atrial fibrillation; I11.0 Hypertensive heart disease with heart failure; E66.01 Morbid (severe) obesity due to excess calories; Z87.891 Personal history of nicotine dependence; Z79.01 Long term (current) use of anticoagulants; Z79.899 Other long term (current) drug therapy
CPT/HCPCS: 0241U; 36415; 71046; 80053; 81001; 83605; 83735; 83880; 84484; 85025; 85610; 87040; 93005; 94640; 99285; J0696; J1940; J2919

== ENCOUNTER → 2024-04-16 11:45 | Outpatient (BNV) | payer MEDICARE, MEDICAID, SELFPAY | PROVIDERS: Emergency Provider Emergency Medicine; PCP Internal Medicine; Visit Provider Radiology Diagnostic Radiology | DX: R05.9 Cough, unspecified (principal) | CPT/HCPCS: 71046 ==

== ENCOUNTER → 2024-04-16 11:45 | Outpatient (BNV) | payer MEDICARE, MEDICAID, SELFPAY | PROVIDERS: Admitting Provider Hospitalist; Emergency Provider Emergency Medicine; PCP Internal Medicine; Visit Provider Internal Medicine Cardiovascular Disease | DX: R06.02 Shortness of breath (principal); I48.91 Unspecified atrial fibrillation; R94.31 Abnormal electrocardiogram [ECG] [EKG] | CPT/HCPCS: 93010 ==

== ENCOUNTER → 2024-04-16 14:51 | Outpatient (BNV) | payer MEDICARE, MEDICAID, SELFPAY | PROVIDERS: Admitting Provider Hospitalist; Emergency Provider Emergency Medicine; PCP Internal Medicine; Visit Provider Hospitalist | DX: J18.9 Pneumonia, unspecified organism (principal); I48.19 Other persistent atrial fibrillation | CPT/HCPCS: 99222 ==

== ENCOUNTER 2024-05-04 11:56 | Outpatient (REF) | payer MEDICARE, MEDICAID, SELFPAY ==
--- NOTE | ~2024-05-04 | XR_ITS ---
EXAMINATION: XR CHEST CLINICAL INFORMATION: SOB, cough, recent PNA/HF COMPARISON: None available. TECHNIQUE: 2 views of the chest were obtained. FINDINGS: Mild cardiac enlargement. Mediastinal contours are normal. The aorta is calcified. Mildly prominent vasculature in the hilar regions. Lungs are hyperaerated and somewhat hyperlucent suggesting COPD. Mild residual opacity in the lingular and left lower lobe distribution, significantly improved from prior radiographs, suggesting mild residua of prior pneumonia. Lungs are otherwise clear. There is no pneumothorax or pleural effusion. There is no focal osseous or soft tissue abnormality. Degenerative changes of the spine and shoulder joints. XR/XR chest 2V IMPRESSION: 1. Mild residual of previously seen left upper lobe and left lower lobe pneumonia. Line 2. No acute lung disease identified. 3. Mild cardiac enlargement. 4. COPD suspected. Electronically signed by: Maxim Mckeon MD 05/04/2024 12:29 PM RAJAT
== END 2024-05-04 11:57 | disposition home or self-care (01) ==
LOC: HO.HHCX 11:56
PROVIDERS: Visit Provider Family Medicine
DX: J18.9 Pneumonia, unspecified organism (principal)
CPT/HCPCS: 71046

== ENCOUNTER → 2024-05-04 12:00 | Outpatient (BNV) | payer MEDICARE, MEDICAID, SELFPAY | PROVIDERS: Visit Provider Radiology Diagnostic Radiology | DX: R06.02 Shortness of breath (principal); R05.9 Cough, unspecified | CPT/HCPCS: 71046 ==

== ENCOUNTER 2024-05-17 15:20 | Outpatient (AMB) | payer MEDICARE, MEDICAID, SELFPAY ==
[2024-05-17 15:36] VITALS: BP 140/70; PULSE 62; O2SAT 94; BMI 42.2
--- NOTE | 2024-05-17 15:36 | A.OFFVIS_ITS ---
Vital Signs 05/17/24 15:36 Height 5 ft 3 in Weight 238 lb BMI 42.2 BP 140/70 H Blood Pressure Location Lt brachial Position Sitting Pulse 62 Pulse Source Pulse Oximeter Pulse Oximetry (%) 94 Oxygen Delivery Method Nasal Cannula Oxygen Flow Rate 2 Intake Visit Reasons: o2 Dependent/Pneumonia Intake Note: pt is here for HH f/u stating new to oxygen on 2 liters at night and with exertion. coughing, wheezing and some short of breath. [place] Required: No Allergies No Known Allergies [No Known Allergies*] Allergy (Verified 05/17/24 16:48) Medication List - Last Reconciled 05/17/24 by Prakash Bower MD acetaminophen ER 650 mg PO Q8H PRN albuterol sulfate 90 mcg/actuation 2 puffs inhalation Q4-6H PRN amlodipine 10 mg PO DAILY apixaban (Eliquis) 5 mg PO BID carvedilol 6.25 mg PO BID cholecalciferol (vitamin D3) 25 mcg PO DAILY furosemide 40 mg PO DAILY guaifenesin ER (Mucinex) 600 mg PO BID lisinopril 30 mg PO DAILY simvastatin 20 mg PO BEDTIME Do you need a note to return to daycare/school/sports/work: No HPI HPI o2 Dependent/Pneumonia: Details: THIS 68 YEARS OLD GENTLEMAN IS HERE FOR THE 1ST TIME TO SEE ME, FOR FOLLOW-UP AFTER HIS RECENT HOSPITALIZATION. HE WAS ADMITTED TO [facility] ON 04/16 WITH COUGH SHORTNESS OF BREATH AND FEVER, CHEST X-RAY SHOWED EXTENSIVE INFILTRATE IN THE LEFT LOWER LOBE AND SOME INFILTRATE IN THE RIGHT LOWER LOBE. SO HE WAS TREATED FOR BIBASILAR PNEUMONIA, WITH IV ANTIBIOTICS ( ROCEPHIN AND DOXYCYCLINE ) DUONEB UPDRAFTS, AND OXYGEN SUPPLEMENT. TEST FOR COVID WAS NEGATIVE . DISCHARGE HOME ON 04/20/2024 ON OXYGEN 2 L/MINUTE TO USE AT NIGHT AND WITH ANY PHYSICAL ACTIVITY DURING THE DAYTIME. HE WAS ALSO PRESCRIBED ALBUTEROL INHALER TO USE P.R.N.. HE STATES THAT HE HAS GRADUALLY IMPROVED BUT HE STILL GETS SHORT OF BREATH ON MINIMAL EXERTION. .HE HAS NO RESIDUAL FEVER HE IS MOSTLY STAYING IN THE HOUSE HE HAS DIFFICULTY IN AMBULATING. 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 THIS GENTLEMAN IS KNOWN TO HAVE ATRIAL FIBRILLATION WHICH IS , UNDER CONTROL AND HE IS ON ANTICOAGULATION. HE STATES THAT HE DOES NOT HAVE ANY UNDERLYING. CHRONIC PULMONARY DISEASE HOWEVER MANY YEARS AGO HE TESTED POSITIVE FOR SLEEP APNEA, HE WAS GIVEN CPAP BUT HE COULD NOT USE IT, AND RETURNED THE MACHINE. HE STATES THAT HE HAS BEEN SLEEPING FAIRLY WELL AND ALWAYS SLEEPS IN RIGHT LATERAL POSITION. CAN NOT SLEEP IN SUPINE POSITION PATIENT HAS HAD NO PULMONARY. FUNCTION TEST BEFORE HE HAS HISTORY OF SMOKING FOR 14 YEARS BUT QUIT IN 1987 PATIENT HAS DIFFICULTY IN AMBULATING AND HE WAS USING WHEELCHAIR IN THE OFFICE. [facility], [facility] Medical History (Updated 05/17/24 @ 17:05 by Prakash Bower MD) Hypoxemia Restrictive lung disease MICKEY (obstructive sleep apnea) Morbid obesity Social History Household Members: Family Household Members Other:: Sister Gillian Housing: Apartment Do you presently have visiting nurse or other home services: No Patient Tobacco Use Status: Former Tobacco user service: No Review of Systems Const All systems reviewed & are unremarkable except as noted in HPI and below Eyes Reports no additional complaints ENT Reports no additional complaints Card Reports irregular heart rhythm and Reports leg edema Resp Reports as per HPI GI Reports no additional complaints Reports no additional complaints Musc Reports abnormal gait (HAS WEAKNESS OF LOWER EXTREMITIES AND DIFFICULTY IN AMBULATING.) and Reports muscle weakness (GENERAL) Skin/Breast Reports system reviewed and no additional complaints, except as documented Neuro Reports abnormal gait (HAS WEAKNESS OF LOWER EXTREMITIES AND DIFFICULTY IN AMBULATING.) Psych Reports no additional complaints Endo Reports no additional complaints Physical Exam Vital Signs: Last Vital Signs Pulse 62 05/17/24 15:36 BP 140/70 H 05/17/24 15:36 Pulse Ox 94 05/17/24 15:36 Oxygen Delivery Method Nasal Cannula 05/17/24 15:36 Oxygen Flow Rate 2 05/17/24 15:36 BMI result Body Mass Index 42.2 HE IS GROSSLY OBESE WITH LARGE NECK, Const General: comfortable, no acute distress, alert and awake Orientation/consciousness: patient oriented x3 HEENT Head: Yes normal to inspection General nose exam: No nasal polyps present and No nasal discharge present Face and sinus: Yes sinuses nontender Mouth: oropharynx abnormals (NARROW AND CROWDED MALLAMPATI CLASS 3) Throat: Yes posterior oropharynx normal Eyes General: appearance normal, both eyes and all related structures Neck Neck: Yes normal visual inspection, Yes no lymphadenopathy, Yes trachea midline, Yes no JVD and Yes other (NECK CIRCUMFERENCE 18 IN) Thyroid: Thyroid normal Chest Chest palpation & inspection: normal inspection of the chest, normal palpation of entire chest wall and no tenderness Resp Other: PERCUSSION NOTE IS DIFFICULT BECAUSE OF HIS THE. GROSS OBESITY BREATH SOUNDS ARE DIMINISHED OVER THE BASILAR AREAS. INSPIRATORY CREPITATIONS OVER THE LEFT LOWER LOBE, POSTERIORLY AND ALSO OVER THE RIGHT BASE Cardio Palpation: normal PMI Rate: regular rate Rhythm: regular rhythm Heart sounds: no gallops and no murmurs GI Palpation (GI): Soft to palpation, nontender, No hepatosplenomegaly present and no masses Auscultation: normal bowel sounds Back/Spine/Pelvis Thoracic/Lumbar Spine: thoracic and lumbar spine normal to inspection and thoraco-lumbar ROM limited Skin General skin exam: no rashes or lesions noted Neuro General: patient oriented x3, No gait normal (PATIENT NON AMBULATORY WAS USING WHEELCHAIR) and no focal motor deficits Cranial nerves: Yes CN's II-XII intact bilaterally Extrem General: Yes normal to inspection, Yes no calf tenderness and Yes venous stasis dermatitis (BOTH LEGS, BUT NO PITTING EDEMA AT THIS TIME) Psych Appearance: grossly normal and well kempt Speech and movement: Normal speech and movement present Assessment & Plan Assessment & Plan (1) Community acquired pneumonia: Comment: PATIENT HAS BEEN TREATED FOR BILATERAL LOWER LOBE PNEUMONIA WORSE ON THE LEFT SIDE. HE RESPONDED WELL TO THE TREATMENT. REMAINS HYPOXEMIC SO NEEDS O2 AT NIGHT AND DURING THE DAYTIME Code(s): J18.9 - Pneumonia, unspecified organism Category: Medical Qualifiers: Laterality: unspecified laterality Qualified Code(s): J18.9 - Pneumonia, unspecified organism Plan: PATIENT NEEDS FOLLOW-UP CHEST X-RAY WHICH WILL BE DONE BEFORE HIS NEXT VISIT ADVISED TO DO DEEP BREATHING EXERCISES 3 TIMES A DAY USE ALBUTEROL HFA 2 PUFFS Q 6 HOURS P.R.N. (2) Persistent atrial fibrillation: Comment: PATIENT HAS PERSISTENT ATRIAL FIBRILLATION, HE IS ON ANTICOAGULATION Code(s): I48.19 - Other persistent atrial fibrillation Category: Medical Plan: CONTINUE THE REGULAR FOLLOW-UP WITH CARDIOLOGY (3) Morbid obesity: Comment: PATIENT IS MORBIDLY OBESE, HE SAY IS HE HAS ACTUALLY LOST SOME WEIGHT. THERE IS A HISTORY OF OBSTRUCTIVE SLEEP APNEA DIAGNOSED MANY YEARS AGO, HE COULD NOT TOLERATE THE CPAP. CLAIMS THAT HE SLEEPS IN. LATERAL POSITION AND CAN SLEEP OKAY Code(s): E66.01 - Morbid (severe) obesity due to excess calories Category: Medical Plan: I THINK AT SOME POINT HE WILL NEED A REPEAT SLEEP STUDY. (4) MICKEY (obstructive sleep apnea): Comment: NOTED ABOVE UNDER MORBID OBESITY Code(s): G47.33 - Obstructive sleep apnea (adult) (pediatric) Category: Medical Plan: PATIENT NOT ABLE TO USE CPAP. PATIENT WOULD NEED A SLEEP STUDY AT SOME POINT IN FUTURE. (5) Restrictive lung disease: Comment: PATIENT IS EXPECTED TO HAVE SEVERE RESTRICTIVE PULMONARY DISORDER, SECONDARY TO HIS OBESITY. Code(s): J98.4 - Other disorders of lung Category: Medical Plan: I WOULD ORDER A PULMONARY FUNCTION TEST ONCE HE RECOVERS COMPLETELY FROM HIS PNEUMONIA (6) Hypoxemia: Comment: DURING HOSPITALIZATION FOUND TO HAVE HYPOXEMIA AT NIGHT, AND ALSO DESATURATED WITH ANY WALKING. Code(s): R09.02 - Hypoxemia Category: Medical Plan: PATIENT DOES HAVE OXYGEN CONCENTRATOR WITH THE PORTABLE CYLINDERS. HE IS TO USE O2 2 L/MINUTE WHOLE NIGHT. AND USE O2 2 L/MINUTE WITH ANY PHYSICAL EXERCISE AT HOME OR WHEN HE GOES OUTDOORS Orders: Orders XR chest 2V 2 Weeks J18.9 - Pneumonia, unspecified organism, J98.4 - Other disorders of lung Coding Level of Care Code New Pt Level 4 (57916) Diagnoses Community acquired pneumonia, unspecified laterality J18.9 Laterality: unspecified laterality Persistent atrial fibrillation I48.19 Morbid obesity E66.01 MICKEY (obstructive sleep apnea) G47.33 Restrictive lung disease J98.4 Hypoxemia R09.02
--- OUTSIDE RECORDS SUMMARY | 2024-05-17 17:17 | XMS_ITS | Encounter Summary ---
Author Organization [employer] Address [address] [place] [address] Care Team Providers Care Car Framer Name Role Phone Darlene Cherry MD Primary Care Provide r Reason for Visit * Reason Onset Date Comments [facility] triage 05/04/2024 Encounter Details Date Type Department Care Team ([facility] st Contact Info) Description 05/04/2024 Telephone [facility] [address] [place] [address] Faith You RN [facility] triage Social History Tobacco Use Types Packs/Day Years Used Date Smoking Tobacco: Former Cigarettes Passive Smoke Exposure: Past Smokeless Tobacco: Never Alcohol Use Standard Drinks/Week Comments Yes 0 (1 standard drink = 0.6 oz pur e alcohol) Special Occassions Depression Answer Date Recorded Patient Health Questionnaire-9 Score 0 11/03/2022 Housing Stability Answer Date Recorded What is your housing situation today? I have jaye kevin 01/11/[address] you li ve. Do you have problems with any of the following? None of the above 01/11/2024 Food Insecurity Answer Date Recorded Within the past 12 months, y ou worried that your food would run out before you got money to buy more: Never True 01/11/2024 Within the past 12 months,th e food you bought just didn't last and you didn't have enough money to get more: Never True Transportation Answer Date Recorded In the past 12 months, has l ack of transportation kept you from medical appts, meetings, work or from getting things needed for daily living? No 01/11/2024 Utilities Answer Date Recorded In the past 12 months, has t he electric, gas, oil or water company threatened to shut off services in your home? No 01/11/2024 Depression Answer Date Recorded Patient Health Questionnaire-2 Score 0 11/03/2022 Internet Access Answer Date Recorded Internet Access Q1 Yes 01/11/2024 Internet Access Q2 Not on file 01/11/2024 Sex and Gender Information Value Date Recorded Sex Assigned at Male 02/16/2022 10:17 AM EDT Legal Sex Male 10:17 AM EDT Gender Identity Male 02/16/2022 10:17 AM EDT Sexual Orientation Straight 02/16/2022 10 :17 AM EDT documented as of this encounter Miscellaneous Notes * Telephone Encounter - Faith You RN - 05/04/2024 10:44 AM EST Pt presents to [facility] c/o cough and too long to wait for HDFU OV . Pt taken to room B for triage. Pt ambulating well with cane and rolling oxygen tank @ 1LNC. Pt states h was just in he hospital for PNA. States his lisinopril was increased to 30 mg, but has not taken any of his meds for the day yet. Pt states he has liquid in his nose . VS: Weight: 238 lbs RR 20-22 with mask and 1 LNC on O2 sat 92-3 % on 1 LNC Has not used any inhalers or meds today HR reg 60 BP sitting, left arm large cuff 160/80 PO temp 98.6 Pt denies fever at home. Was sent home with oxygen at 1 LNC. LS coarse rhonci throughout. Pt not inacute distress at this time, increased dyspnea while ambulating noted. Pt to be swabbed by [facility]BER, he awaits eval by provider. Pt gives verbal consent for access to Care everywhere EMR documented in this encounter Plan of Treatment Upcoming Encounters Date Type Department Care Team (Late st Contact Info) Description 05/26/2024 1:00 PM EST Telemedicine [facility] MEDICINE [address] [place] [address] Darlene Cherry MD [address] [place] [address] documented as of this encounter Visit Diagnoses Not on filedocumented in this encounter Additional Health Concerns Assessment Noted Time PHQ-9 Depression Total Score: 0 11/04/19 23 9:58 AM EDT documented as of this encounter Care Teams Car Framer Relationship Specialty Start Date End Date Darlene Cherry MD [address] [place] [id number] PCP - General Family Medicine 12/29/17 documented as of this encounter
--- OUTSIDE RECORDS SUMMARY | 2024-05-17 17:17 | XMS_ITS | Encounter Summary ---
Author Organization [employer] Address [address] [place] [address] Care Team Providers Care Tuber Machine Cutter Name Role Phone Darlene Cherry MD Primary Care Provide r Reason for Visit * Reason Onset Date Comments Prior Authorization 10/20/2023 Encounter Details Date Type Department Care Team ([facility] st Contact Info) Description 10/20/2023 Telephone [facility] MEDICINE [address] [place] [address] [phone] Darlene Cherry MD [address] [place] [address] Prior Authorization Social History Tobacco Use Types Packs/Day Years Used Date Smoking Tobacco: Former Cigarettes Passive Smoke Exposure: Past Smokeless Tobacco: Never Alcohol Use Standard Drinks/Week Comments Yes 0 (1 standard drink = 0.6 oz pur e alcohol) Special Occassions Depression Answer Date Recorded Patient Health Questionnaire-9 Score 0 11/03/2022 Housing Stability Answer Date Recorded What is your housing situation today? I have jaye kevin 02/01/[address] you li ve. Do you have problems with any of the following? None of the above 02/01/2023 Food Insecurity Answer Date Recorded Within the past 12 months, y ou worried that your food would run out before you got money to buy more: Never True 02/01/2023 Within the past 12 months,th e food you bought just didn't last and you didn't have enough money to get more: Never True Transportation Answer Date Recorded In the past 12 months, has l ack of transportation kept you from medical appts, meetings, work or from getting things needed for daily living? No 02/01/2023 Utilities Answer Date Recorded In the past 12 months, has t he electric, gas, oil or water company threatened to shut off services in your home? No 02/01/2023 Depression Answer Date Recorded Patient Health Questionnaire-2 Score 0 11/03/2022 Sex and Gender Information Value Date Recorded Sex Assigned at Male 02/16/2022 10:17 AM EDT Legal Sex Male 10:17 AM EDT Gender Identity Male 02/16/2022 10:17 AM EDT Sexual Orientation Straight 02/16/2022 10 :17 AM EDT documented as of this encounter Miscellaneous Notes * Telephone Encounter - Nati Manning - 10/20/2023 10:12 AM EDT Tc from pharmacy [facility] [place] is needed for lidocaine (Lidoderm) 5 % patch documented in this encounter Plan of Treatment Upcoming Encounters Date Type Department Care Team (Late st Contact Info) Description 05/26/2024 1:00 PM EST Telemedicine [facility] MEDICINE [address] [place] [address] Darlene Cherry MD [address] [place] [address] documented as of this encounter Visit Diagnoses Not on filedocumented in this encounter Additional Health Concerns Assessment Noted Time PHQ-9 Depression Total Score: 0 11/04/19 23 9:58 AM EDT documented as of this encounter Care Teams Tuber Machine Cutter Relationship Specialty Start Date End Date Darlene Cherry MD [address] [place] [address] PCP - General Family Medicine 12/29/17 documented as of this encounter
--- OUTSIDE RECORDS SUMMARY | 2024-05-17 17:17 | XMS_ITS | Encounter Summary ---
Author Organization [employer] Address [address] [facility] 7t [place] [address] Care Team Providers Care Power House Control Room Operator Name Role Phone Darlene Cherry MD Primary Care Provide r Reason for Referral * Consultation (Urgent) - Authorized Specialty Diagnoses / Procedures Referred By Eder boothe Referred To Contact Pulmonary Disease Diagnoses O2 dependent Bella Boone DO [address] [place] [address] Phone: tel: fax: [facility] Pulmonary [address] [place], [place] Phone: tel: fax: Referral ID Status Reason Start Date Expiration Date Visits Requested Visits Authorized [id number] Authorized Specialty Services Required 05/04/2024 05/04/2025 1 1 * PFT (Routine) - Authorized Specialty Diagnoses / Procedures Referred By Eder boothe Referred To Contact Diagnoses O2 dependent Procedures Pulmonary Function Test Bella Boone DO [address] [place] [address] Phone: tel: fax: [facility] [address] [place], [place] Phone: tel: fax: Referral ID Status Reason Start Date Expiration Date V isits Requested Visits Authorized [id number] Authorized 05/04/2024 05/04/2025 1 1 * Imaging (Routine) - Authorized Specialty Diagnoses / Procedures Referred By Contac t Referred To Contact Cardiology Diagnoses Other heart failure (CMS/HCC) Procedures Transthoracic Echo (TTE) Complete Bella Boone DO [address] [place] [address] Phone: tel: fax: [address] Phone: tel: fax: Referral ID Status Reason Start Date Expiration Date Visits Requested Visits Authorized [id number] Authorized Perform Procedure 05/04/2024 05/04/2025 1 1 Reason for Visit * Reason Comments Nasal Congestion Encounter Details Date Type Department Care Team (Late st Contact Info) Description 05/04/2024 10:40 AM EST Office Visit [facility] [address] [place] [address] Bella Boone DO [address] [place] [address] Multifocal pneumonia (Primary Dx); Other heart failure (CMS/HCC); O2 dependent; Essential hypertension; Acute URI Social History Tobacco Use Types Packs/Day Years Used Date Smoking Tobacco: Former Cigarettes Passive Smoke Exposure: Past Smokeless Tobacco: Never Alcohol Use Standard Drinks/Week Comments Yes 0 (1 standard drink = 0.6 oz pur e alcohol) Special Occassions Depression Answer Date Recorded Patient Health Questionnaire-9 Score 0 11/03/2022 Housing Stability Answer Date Recorded What is your housing situation today? I have jaye sing 01/11/[address] you li [...] AM EDT documented as of this encounter Last Filed Vital Signs Vital Sign Reading Time Taken Comments Blood Pressure 130/78 05/04/2024 12:08 PM EST Pulse 60 05/04/2024 10:40 AM EST Temperature 37 ??C (98.6 ??F) 05/04/2024 10:40 AM EST Respiratory Rate 20 05/04/2024 10:40 AM EST Oxygen Saturation 92% 05/04/2024 10:40 AM EST Inhaled Oxygen Concentration - - Weight 108 kg (238 lb) 05/04/2024 10:40 AM EST Height - - Body Mass Index 42.16 01/19/2024 10:14 AM EDT documented in this encounter Progress Notes * Bella Boone DO - 05/04/2024 10:40 AM EST SUBJECTIVE Aly Paiz is a 68 y.o. male who presents for Sick Visit. He comes to [place] reporting not feeling well. He spoke with [facility] pharmacist this morning and reported not doing well, having low energy, and losing his taste and smell. He told the [place] RN during triage that it was too long to wait until his F appt. He presented to [facility] ED on 04/16/24 c/o cough and SOB. He was tachypneic and hypertensive. His O2 was 82% and he was placed on 3L nasal cannula. His basic labs were nml, troponin negative. His BNP bue392. COVID, flu, and RSV were negative. His CXR showed consolidative air space disease and pulmonary vascular congestion. He was admitted with PNA and heart failure. He was treated with IV ceftriaxone and doxycycline, duonebs and IV steroids with improvement in sx.He was transitioned to PO abx and prednisone. He was treated with IV lasix with good diuresis. His BP was suboptimally controlled and his lisinopril was increased to 30mg daily. He was noted to be hypoxic and had a home O2 eval prior to discharge and qualified for O2 at rest and with activity. He was discharged home on 04/20/24 with VNA services. He says that he completed his abx and prednisone. He is feeling better. He lost his taste and smell2-3 days ago and concerned that he has COVID. He has no congestion but feels a lot of nasal mucous.He has mild dry cough. His breathing is better. He says he can't sleep on his back any longer anymore due to SOB. He is using O2 all the time. He has been using O2 via compressor at home and has O2 tanks that he can travel with. He has a h/o tobacco use, 1PPD x 15 but quit > 40 years ago. He says that VNA has not come to his home since he was discharged. He does not have a meal grinder tender. He follows with cards for his A. Fib and has appt next mos. History provided by: Patient card scraper used: No Review of Systems Constitutional: Negative for activity change, appetite change, fever and unexpected weight change. Respiratory: Positive for cough and shortness of breath. Negative for chest tightness. Cardiovascular: Negative for chest pain and palpitations. Gastrointestinal: Negative for abdominal pain, diarrhea, nausea and vomiting. Neurological: Negative for dizziness, weakness and headaches. Patient Active Problem List Diagnosis Hypertension Calcium pyrophosphate deposition disease Blurring of visual image Dependent edema Hyperlipidemia Obstructive sleep apnea syndrome Osteoarthritis of knee Permanent atrial fibrillation ([facility]/HCC) Stasis dermatitis Venous stasis Venous stasis ulcer of left calf limited to breakdown of skin with varicose veins ([facility]) Class 3 severe obesity due to excess calories with serious comorbidity and body mass index (BMI) of45.0 to 49.9 in adult ([facility]) Colon cancer screening Acute right-sided low back pain without sciatica Lumbar sprain Acute midline low back pain without sciatica Unstable gait Bradycardia Other heart failure (CMS/HCC) No Known Allergies OBJECTIVE Vitals: 05/04/24 1040 05/04/24 1208 BP: (!) 160/80 130/78 BP Location: Left arm Left arm Patient Position: Sitting Sitting BP Cuff Size: Large adult Adult Pulse: 60 Resp: 20 Temp: 98.6 ??F (37 ??C) TempSrc: Oral SpO2: 92% Weight: 238 lb (108 kg) Physical Exam Constitutional: General: He is not in acute distress. Appearance: Normal appearance. HENT: Right Ear: Tympanic membrane, ear canal and external ear normal. Left Ear: Tympanic membrane, ear canal and external ear normal. Nose: Congestion and rhinorrhea present. Mouth/Throat: Pharynx: Posterior oropharyngeal erythema present. No oropharyngeal exudate. Cardiovascular: Rate and Rhythm: Normal rate and regular rhythm. Heart sounds: Normal heart sounds. No murmur heard. Pulmonary: Effort: Pulmonary effort is normal. Breath sounds: Decreased breath sounds present. No wheezing or rhonchi. Comments: NC in place on 1 L Speaking in full sentences without difficulty Musculoskeletal: Cervical back: Neck supple. No tenderness. Lymphadenopathy: Cervical: No cervical adenopathy. Neurological: General: No focal deficit present. Mental Status: He is alert and oriented to person, place, and time. Psychiatric: Mood and Affect: Mood normal. Office Visit on 05/04/2024 Component Date Value Ref Range Status Rapid COVID Ag 05/04/2024 Negative Final Influenza A 05/04/2024 Negative Negative, Indeterminate Final Influenza B 05/04/2024 Negative Negative, Indeterminate Final Assessment/Plan Diagnoses and all orders for this visit: Multifocal pneumonia S/P hospitalization with completion of abx and steroids, sx improved -referred for repeat CXR to ensure resolution of PNA Other heart failure (CMS/HCC) S/P hospitalization with good diuresis -encouraged lasix as rx'd -referred for ECHO -f/u with cards next mos as scheduled O2 dependent At rest and with activity since hospitalization -cont supplemental O2 -cont albuterol prn -referred for PFTs -referred to pulm for eval -consider pulm rehab -will have [place] RN check status of VNA services Essential hypertension BP controlled -cont increased dose of lisinopril daily -cont norvasc daily -cont coreg BID -repeat BMP next visit Acute URI Likely viral -provided reassurance -encouraged supportive care measures -advised stay well-hydrated -trial flonase and claritin daily -trial mucinex prn -trial tessalon pearles to help with cough -encouraged tylenol prn -advised contact HHC or go to ED if no improvement or sx worsen, he agrees with plans --Follow-up with PCP as scheduled or sooner prn-- Current Outpatient Medications: acetaminophen (Tylenol 8 Hour) 650 MG ER tablet, Take 1 tablet (650 mg) by mouth every 8 (eight) hours if needed for mild pain. Do not crush, chew, or split., Disp: 40 tablet, Rfl: 1 albuterol 108 (90 Base) MCG/ACT inhaler, Inhale 1 puff Every 4-6 hours as needed for wheezing or shortness of breath., Disp: , Rfl: amLODIPine (Norvasc) 10 MG tablet, TAKE ONE TABLET BY MOUTH EVERY DAY, Disp: 90 tablet, Rfl: 3 apixaban (Eliquis) 5 MG tablet, Take 1 tablet (5 mg) by mouth 2 times daily., Disp: 60 tablet, Rfl:0 benzonatate (Tessalon Perles) 100 MG capsule, Take 1 capsule (100 mg) by mouth if needed in the morning, at noon, and at bedtime for cough for up to 10 days. Do not crush or chew., Disp: 30 capsule, Rfl: 0 carvedilol (Coreg) 6.25 MG tablet, Take 1 tablet by mouth every 12 (twelve) hours., Disp: , Rfl: cholecalciferol (D3-1000) 25 MCG (1000 UT) capsule, TAKE ONE CAPSULE BY MOUTH EVERY DAY., Disp: 90 capsule, Rfl: 1 cyclobenzaprine (Flexeril) 10 MG tablet, Take 1 tablet (10 mg) by mouth 3 times daily for 10 days.,Disp: 30 tablet, Rfl: 0 cyclobenzaprine (Flexeril) 10 MG tablet, Take 1 tablet (10 mg) by mouth 3 times daily for 10 days.,Disp: 30 tablet, Rfl: 0 fluticasone (Flonase) 50 MCG/ACT nasal spray, Administer 2 sprays into each nostril Once per day. Shake gently. Before first use, prime pump. After use, clean tip and replace cap., Disp: 16 g, Rfl: 3 furosemide (Lasix) 40 MG tablet, Take 1 tablet by mouth every 12 (twelve) hours., Disp: , Rfl: guaiFENesin (Mucinex) 600 MG 12 hr tablet, Take 1 tablet (600 mg) by mouth if needed in the morningand at bedtime for cough or congestion. Do not crush, chew, or split., Disp: 30 tablet, Rfl: 0 lidocaine (Lidoderm) 5 % patch, Apply 1 patch topically Once per day. Remove & discard patch within 12 hours or as directed by MD., Disp: 30 patch, Rfl: 1 lisinopril 30 MG tablet, Take 1 tablet by mouth Once per day., Disp: , Rfl: loratadine (Claritin) 10 MG tablet, Take 1 tablet (10 mg) by mouth Once per day., Disp: 30 tablet, Rfl: 3 simvastatin (Zocor) 20 MG tablet, Take 20 mg by mouth in the morning., Disp: , Rfl: Scribe Attestation: Zain Givens, am serving as a scribe to document services personally performed by Bella Daniels, based on the patient's response to questions by provider and provider's statements to me. 05/04/24 12:30 PM Physicians Attestation: Bella Givens DO, have reviewed the information by the scribe, Zain Harry, for accuracy and agree with its content. documented in this encounter Plan of Treatment Upcoming Encounters Date Type Department Care Team (Late st Contact Info) Description 05/26/2024 1:00 PM EST Telemedicine [facility] [address] [place], [place] [phone] Darlene Cherry MD [address] [place] [address] Scheduled Orders Name Type Priority Associated Diagnoses Order Schedule Transthoracic Echo (TTE) Complete Echocardiography Routine Other heart failure (CMS/HCC) Expected: 05/04/2024 (Approximate), Expires: 05/04/2026 Pulmonary Function Test PFT Routine O2 dependent Expected: 05/04/2024, Expires: 11/01/2024 Scheduled Referrals Name Type Priority Associated Diagnoses Order Schedule Referral to Pulmonology Outpatient Referral Urgent O2 dependent Expected: 05/04/2024 (Approximate), Expires: 05/04/2025 documented as of this encounter Procedures Procedure Name Priority Date/Time Associated Diagnosis Comments XR CHEST 2 VIEWS STAT 05/04/2024 12:0 0 PM EST Multifocal pneumonia POCT INFLUENZA B (ID NOW RAPID MOLECULAR) Routine 05/04/2024 11:01 AM EST Multifocal pneumonia POCT INFLUENZA A (ID NOW RAPID MOLECULAR) Routine 05/04/2024 11:01 AM EST Multifocal pneumonia POCT RAPID COVID ANTIGEN Routine 05/04/2024 11:01 AM EST Multifocal pneumonia documented in this encounter Results * XR Chest 2 Views (05/04/2024 12:00 PM EST) Anatomical Region Laterality Modality Chest Radiographic Che ging 05/04/2024 12:0 0 PM EST Narrative 05/04/2024 12:32 PM EST ?[facility] ?[address] ?[place] [address] ?XRay Report ? Signed ? Patient: Digris,Aly ?MR#: [id number] ?? 63 ? : 1955 ?Acct:[id number] ? Age/Sex: 68 / M ?ADM Date: 05/04/24 ? Loc: HO.HHCX ? Attending Dr: Bella Boone DO ? Ordering Physician: Bella Boone DO ?? Date of Service: 05/04/24 ?? Procedure(s): XR chest 2V ?? Accession Number(s): [id number] ? cc: Bella Boone DO ? EXAMINATION: ?? XR CHEST ? CLINICAL INFORMATION: ?? SOB, cough, recent PNA/HF ? COMPARISON: ?? None available. ? TECHNIQUE: ?? 2 views of the chest were obtained. ? FINDINGS: ?? Mild cardiac enlargement. Mediastinal contours are normal. The aorta is ?? calcified. Mildly prominent vasculature in the hilar regions. ? Lungs are hyperaerated and somewhat hyperlucent suggesting COPD. ?? Mild residual opacity in the lingular and left lower lobe distribution, ?? significantly improved from prior radiographs, suggesting mild residua ?? of prior pneumonia. ?? Lungs are otherwise clear. There is no pneumothorax or pleural effusion. ? There is no focal osseous or soft tissue abnormality. Degenerative ?? changes of the spine and shoulder joints. ? XR/XR chest 2V ?? IMPRESSION: ?? 1. Mild residual of previously seen left upper lobe and left lower lobe ?? pneumonia. Line ?? 2. No acute lung disease identified. ?? 3. Mild cardiac enlargement. ?? 4. COPD suspected. ? Electronically signed by: ??Maxim Mckeon MD ??05/04/2024 12:29 PM EST RP ? Dictated By: ?Maxim Mckeon MD ? Signed By: ?<Electronically signed by Maxim Mckeon MD in OV> ?05/04/24 1229 ? DD/ 1200 ? TD/TT: 05/04/24 1212 ? Drill Punch Operator: ? Procedure Note Priyank, Image - 05/04/2024 [place] [address] XRay Report Signed Patient: Isaías Paiz#: [id number] 63 : 5Acct:[id number] Age/Sex: 68 / MADM Date: 05/04/24 Loc: HO.HHCX Attending Dr: Bella Boone DO Ordering Physician: Bella Boone DO Date of Service: 05/04/24 Procedure(s): XR chest 2V Accession Number(s): [id number] cc: eBlla Boone DO EXAMINATION: XR CHEST CLINICAL INFORMATION: SOB, cough, recent PNA/HF COMPARISON: None available. TECHNIQUE: 2 views of the chest were obtained. FINDINGS: Mild cardiac enlargement. Mediastinal contours are normal. The aorta is calcified. Mildly prominent vasculature in the hilar regions. Lungs are hyperaerated and somewhat hyperlucent suggesting COPD. Mild residual opacity in the lingular and left lower lobe distribution, significantly improved from prior radiographs, suggesting mild residua of prior pneumonia. Lungs are otherwise clear. There is no pneumothorax or pleural effusion. There is no focal osseous or soft tissue abnormality. Degenerative changes of the spine and shoulder joints. XR/XR chest 2V IMPRESSION: 1. Mild residual of previously seen left upper lobe and left lower lobe pneumonia. Line 2. No acute lung disease identified. 3. Mild cardiac enlargement. 4. COPD suspected. Electronically signed by: Maxim Mckeon MD 05/04/2024 12:29 PM EST RP Dictated By: Maxim Mckeon MD Signed By: <Electronically signed by Maxim Mckeon MD in OV> 05/04/24 1229 DD/ 1200 TD/TT: 05/04/24 1212 Drill Punch Operator: Bella Boone DO IMG XR PROCEDURES Final Resu lt * Influenza B (ID NOW Rapid Molecular) (05/04/2024 11:01 AM EST) Influenza B Negative Negative, Indeterminate [facility] Swab 05/04/2024 11:0 1 AM EST Bella Boone DO POINT OF CARE TEST ENTER/ENE T ORDERABLES Final Result Performing Organization Address [facility]/ZIP Co de Phone Number [facility] [address] [place] [phone] * Influenza A (ID NOW Rapid Molecular) (05/04/2024 11:01 AM EST) Influenza A Negative Negative, Indeterminate [facility] Swab 05/04/2024 11:0 1 AM EST Bella Boone DO POINT OF CARE TEST ENTER/ENE T ORDERABLES Final Result Performing Organization Address [facility]/ZIP Co de Phone Number [facility] [address] [place] [phone] * POCT Rapid COVID Ag (05/04/2024 11:01 AM EST) Rapid COVID Ag Negative [facility] Swab 05/04/2024 11:0 1 AM EST Bella Boone DO POINT OF CARE TEST ENTER/ENE T ORDERABLES Final Result [facility] [address] [place] [phone] documented in this encounter Visit Diagnoses Diagnosis Multifocal pneumonia- Primary Other heart failure (CMS/HCC) O2 dependent Dependence on supplemental oxygen Essential hypertension Unspecified essential hypertension Acute URI Acute upper respiratory infections of unspecified site documented in this encounter Additional Health Concerns Assessment Noted Time PHQ-9 Depression Total Score: 0 11/04/19 23 9:58 AM EDT documented as of this encounter Care Teams Power House Control Room Operator Relationship Specialty Start Date End Date Darlene Cherry MD [address] [place] [phone] PCP - General Family Medicine 12/29/17 documented as of this encounter
--- OUTSIDE RECORDS SUMMARY | 2024-05-17 17:17 | XMS_ITS | Encounter Summary ---
Author Organization [employer] Address [address] [facility] 7t [place] [address] Care Team Providers Care Can Closing Machine Tender Name Role Phone Darlene Cherry MD Primary Care Provide r Reason for Visit * Reason Onset Date Comments Hospital Follow-up 04/24/2024 Encounter Details Date Type Department Care Team ([facility] st Contact Info) Description 04/24/[address] [facility] [address] [place] [phone] Darlene Cherry MD [address] [place], [place] [phone] Hospital Follow-up Social History Tobacco Use Types Packs/Day Years [...] Telephone Encounter - Faith You RN - 04/24/2024 1:38 PM EST Images from the original note were not included. TC to pt to f/u message as below: Luci Carmona [facility] Red Team Nurses Patient is scheduled for HDF on 05/11/2024 at 9:30am with Dr. Castillo. Patient has concerns in regards to his medications. Please contact patient at [phone]. Thank you TC to pt to clarify concerns re: Rx. Pt was worried there are no refills listed on Labels . Reviewed with pt summary from [facility] 04/20/24. Based on directions, and dispense information and pt report, he has enough dispensed to complete directions/until his OV 05/11/24. Pt to be seen in 2.5 weeks in office for HDFU. New Rx given to pt upon leaving [facility] per summary 04/20/24: Anticipated Discharge Date/Time: 04/20/24 09:22 Patient Disposition: Home, Self-Care Discharge Diagnosis: Acute diastolic CHF Multifocal pneumonia Medications: New: -guaifenesin [Mucinex] 600 mg Tablet Extended Release 12hr 600 mg PO BID Qty: 14 -doxycycline monohydrate 100 mg capsule 100 mg PO BID Qty: 4 -cefuroxime axetil 500 mg tablet 500 mg PO Q12H Qty: 4 - lisinopril 30 mg tablet 30 mg PO DAILY Qty: 30 -prednisone 20 mg tablet 20 mg PO DAILY Qty: 4 - albuterol sulfate 90 mcg/actuation HFA aerosol inhaler 2 puff inhalation Q4-6H PRN (Reason: shortness of breath or wheezing) Qty: 8.5 0RF Prior to discharge patient was noted to be hypoxic with finger oximetry 87% on room air therefore home O2 eval was obtained patient qualifies for >1 L of oxygen at rest and 2 L with activity will discharge patient home with VNA services for close monitoring of hypoxia and respiratory status. Care Plan Goals: Multifocal pneumonia take >Ceftin and doxycycline 1 tablet twice daily for 2 more days >Take cough medication as directed >Take prednisone 1 tablet daily with food for 4 days >Increase dose of lisinopril to 30 mg daily Restrict salt Health Concerns: >>Hypertension suboptimal blood pressure control increase dose of lisinopril to 30 mg daily Monitor blood pressure closely Follow low-calorie diet * Telephone Encounter - Josephine Flores - 04/24/2024 11:39 AM EST Tc from pt requesting a HDF appt. Hospital: [facility] Date of admission: 04/16/24 Discharge date: 04/20/24 Diagnosed: Abdominal Fold MASD *Send message to [place] Clinical Care Coordinators documented in this encounter Plan of Treatment Upcoming Encounters Date Type Department Care Team (Late st Contact Info) Description 05/26/2024 1:00 PM EST Telemedicine [facility] [address] [place] [address] Darlene Cherry MD [address] [place] [address] documented as of this encounter Visit Diagnoses Not on filedocumented in this encounter Additional Health Concerns Assessment Noted Time PHQ-9 Depression Total Score: 0 11/04/19 23 9:58 AM EDT documented as of this encounter Care Teams Can Closing Machine Tender Relationship Specialty Start Date End Date Darlene Cherry MD [address] [place] [address] PCP - General Family Medicine 12/29/17 documented as of this encounter
--- OUTSIDE RECORDS SUMMARY | 2024-05-17 17:17 | XMS_ITS | Encounter Summary ---
Author Organization [employer] Address [address] [facility] [address] [place] [address] Care Team Providers Care Neurologist Name Role Phone Darlene Cherry MD Primary Care Provide r Reason for Visit * Reason Onset Date Comments No Show 05/11/2024 Encounter Details Date Type Department Care Team ([facility] st Contact Info) Description 05/11/2024 Telephone [facility] [address] [place], [place] [phone] Darlene Cherry MD [address] [place], [place] [phone] No Show Social History Tobacco Use Types Packs/Day Years [...] encounter Miscellaneous Notes * Telephone Encounter - Ambreen Obrien RN - 05/11/2024 10:26 AM EST TC placed to patient [phone] in regards to below message. Patient advised we attempted to callhim yesterday in regards to his appointment today however we were unable to get a hold of him. Patient reports he has poor phone service. Patient agreed to r/s HDF to 05/26/24 with PCP as telehealth. Patient also informed of CXR results showing residual PNA and will need repeated CXR in 4 weeks. Patient confirms continued use of incentive spirometer. Patient spoke to RN in full complete sentences. Patient to f/u PRN. * Telephone Encounter - Delaney Warren - 05/11/2024 10:04 AM EST Pt no showed to appt on 05/11/24 documented in this encounter Plan of Treatment Upcoming Encounters Date Type Department Care Team (Late st Contact Info) Description 05/26/2024 1:00 PM EST Telemedicine [facility] [address] [place] [address] Darlene Cherry MD [address] [place] [address] documented as of this encounter Visit Diagnoses Not on filedocumented in this encounter Additional Health Concerns Assessment Noted Time PHQ-9 Depression Total Score: 0 11/04/19 23 9:58 AM EDT documented as of this encounter Care Teams Neurologist Relationship Specialty Start Date End Date Darlene Cherry MD [address] [place] [address] PCP - General Family Medicine 12/29/17 documented as of this encounter
--- OUTSIDE RECORDS SUMMARY | 2024-05-17 17:17 | XMS_ITS | Encounter Summary ---
Author Organization [employer] Address [address] [facility] [address] [place] [address] Care Team Providers Care Healthcare Market Consultant Name Role Phone Darlene Cherry MD Primary Care Provide r Reason for Visit * Reason Onset Date Comments Appointment Request 05/10/2024 Encounter Details Date Type Department Care Team ([facility] st Contact Info) Description 05/10/2024 Telephone [facility] MED[facility]INE [address] [place], [place] [phone] Darlene Cherry MD [address] [place], [place] [phone] Appointment Request Social History Tobacco Use Types Packs/Day Years [...] Telephone Encounter - Ambreen Obrien RN - 05/10/2024 12:55 PM EST TC placed to patient [phone] in regards to below message. Patient did not answer, RN left a VMrequesting a CB to red team nurses. Of note, patients CXR returned showing mild residual pneumonia and patient should have repeat CXR in 4 weeks. RN will re-attempt calling by end of day. * Telephone Encounter - Gama Aeljandra - 05/10/2024 10:32 AM EST Tc from pt requesting to R/s Apt from 05/11. Pt states will not be able to make it due to not feeling good and because of the Weather. Contact pt at [phone] documented in this encounter Plan of Treatment Upcoming Encounters Date Type Department Care Team (Late st Contact Info) Description 05/26/2024 1:00 PM EST Telemedicine [facility] MEDICINE [address] [place] [address] Darlene Cherry MD [address] [place] [address] documented as of this encounter Visit Diagnoses Not on filedocumented in this encounter Additional Health Concerns Assessment Noted Time PHQ-9 Depression Total Score: 0 07/18/20 23 9:58 AM EDT documented as of this encounter Care Teams Healthcare Market Consultant Relationship Specialty Start Date End Date Darlene Cherry MD [address] [place] [address] PCP - General Family Medicine 12/29/17 documented as of this encounter
--- OUTSIDE RECORDS SUMMARY | 2024-05-17 17:17 | XMS_ITS | Clinical Summary ---
Author Organization [employer] Address [address] [facility] [address] [place] [address] Care Team Providers Care Bodily Injury Adjuster Name Role Phone Darlene Cherry MD Primary Care Provide r Allergies No known active allergies Medications furosemide (Lasix) 40 MG tablet Take 1 tablet by mouth every 12 (twelve) hours. Active carvedilol (Coreg) 6.25 MG tablet Take 1 tablet by mouth every 12 (twelve) hours. Active apixaban (Eliquis) 5 MG tabletIndicatio ns:Atrial fibrillation and flutter (CMS/HCC) Take 1 tablet (5 mg) by mouth 2 times daily. 60 tablet 08/26/19 23 Active simvastatin (Zocor) 20 MG tablet Take 20 mg by mouth in the morning. 10/24/19 23 Active lidocaine (Lidoderm) 5 % patchIndication s:Acute right-sided low back pain without sciatica Apply 1 patch topically Once per day. Remove & discard patch within 12 hours or as directed by MD. 30 patch 1 10/20/19 24 Active amLODIPine (Norvasc) 10 MG tablet TAKE ONE TABLET BY MOUTH EVERY DAY 90 tablet 3 11/15/19 24 Active cyclobenzaprine (Flexeril) 10 MG tabletIndicatio ns:Acute right-sided low back pain without sciatica Take 1 tablet (10 mg) by mouth 3 times daily for 10 days. 30 tablet 01/10/20 24 Active cyclobenzaprine (Flexeril) 10 MG tabletIndicatio ns:Acute right-sided low back pain without sciatica Take 1 tablet (10 mg) by mouth 3 times daily for 10 days. 30 tablet 01/10/20 24 Active cholecalciferol (D3-1000) 25 MCG (1000 UT) capsule TAKE ONE CAPSULE BY MOUTH EVERY DAY. 90 capsule 1 05/02/19 25 Active albuterol 108 (90 Base) MCG/ACT inhaler Inhale 1 puff Every 4-6 hours as needed for wheezing or shortness of breath. 04/20/19 25 Active lisinopril 30 MG tablet Take 1 tablet by mouth Once per day. 04/20/19 25 Active loratadine (Claritin) 10 MG tablet Take 1 tablet (10 mg) by mouth Once per day. 30 tablet 3 05/04/19 25 026 Active fluticasone (Flonase) 50 MCG/ACT nasal spray Administer 2 sprays into each nostril Once per day. Shake gently. Before first use, prime pump. After use, clean tip and replace cap. 16 g 3 05/04/19 25 026 Active acetaminophen (Tylenol 8 Hour) 650 MG ER tablet Take 1 tablet (650 mg) by mouth every 8 (eight) hours if needed for mild pain. Do not crush, chew, or split. 40 tablet 1 05/04/19 25 025 Active guaiFENesin (Mucinex) 600 MG 12 hr tablet Take 1 tablet (600 mg) by mouth if needed in the morning and at bedtime for cough or congestion. Do not crush, chew, or split. 30 tablet 05/04/19 25 026 Active apixaban (Eliquis) 5 MG tablet Take 1 tablet by mouth every 12 (twelve) hours. 03/17/20 21 025 Discontinued(M ed list cleanup (will not trigger notification to Pharmacy)) lisinopril 20 MG tablet Take 1 tablet by mouth at bed time. 09/18/19 22 025 Discontinued(M ed list cleanup (will not trigger notification to Pharmacy)) cholecalciferol (Vitamin D High Potency) 25 MCG (1000 UT) capsule TAKE ONE CAPSULE BY MOUTH EVERY DAY. 90 capsule 1 10/07/19 24 025 Discontinued benzonatate (Tessalon Perles) 100 MG capsule Take 1 capsule (100 mg) by mouth if needed in the morning, at noon, and at bedtime for cough for up to 10 days. Do not crush or chew. 30 capsule 05/04/19 25 025 Active Problems Problem Noted Date Diagnosed Date Other heart failure 05/04/2024 Acute midline low back pain without sciatica 05/2023 Assessment & Plan (01/19/2024 2:15 PM EDT): Acetaminophen PRN Apply heat on affected area Diclofenac gel PRN PT referral: I explain to patient he uses his cane to short and his posture is not good he will benefit form PT evaluation and recommendation if he needs walker/cane and what type Unstable gait 01/19/2024 Assessment & Plan (01/19/2024 2:15 PM EDT): PT referral Bradycardia 01/19/2024 Assessment & Plan (01/19/2024 2:13 PM EDT): Already seen recently by cardiology, no concerns Lumbar sprain 01/10/2024 Assessment & Plan (01/10/2024 5:00 PM EDT): Advised to apply heat to affected area Use diclofenac gel bid + Tylenol + flexeril (hold for sedation) Advise to do stretching exercises Needs to walk with a walker to keep a better balance He will fu with his PCP in few weeks, will consider PT Acute right-sided low back pain without sciatica 10/20/2023 Assessment & Plan (10/20/2023 3:50 PM EDT): Apply heat on affected area I will prescribe short course of cyclobenzaprine C/w acetaminophen PRN Colon cancer screening 04/23/2023 Blurring of visual image 11/03/2022 Stasis dermatitis 11/03/2022 Venous stasis ulcer of left calf limited to breakdown of skin with varicose veins 11/03/2022 Class 3 severe obesity due t o excess calories with serious comorbidity and body mass index (BMI) of 45.0 to 49.9 in adult 11/03/2022 Assessment & Plan (11/03/2022 12:14 PM EDT): Today extensive discussion was done about life style modifications I advise healthy diet (low calorie) and cardiovascular exercise Venous stasis 04/08/2018 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 Initial goal of 30 min walk 3-5x/week. Increase as tolerated. - low-sodium diet (goal: <2g/day) and heart healthy diet such as DASH to reduce BP and prevent ASCVD. - Home BP monitoring 1-2 x day with goal of <140/90. - Seek immediate medical attention for chest pain, palpitations, SOB, syncope, or sudden changes in mental status. - Do not change or discontinue current prescriptions without first consulting health care provider Assessment & Plan (10/20/2023 3:46 PM EDT): - Aerobic exercise to reduce BP. Initial goal of 30 min walk 3-5x/week. Increase as tolerated. - low-sodium diet (goal: <2g/day) and heart healthy diet such as DASH to reduce BP and prevent ASCVD. - Home BP monitoring 1-2 x day with goal of <140/90. - Seek immediate medical attention for chest pain, palpitations, SOB, syncope, or sudden changes in mental status. - Do not change or discontinue current prescriptions without first consulting health care provider Assessment & Plan (04/23/2023 12:09 PM EST): Maintenance: BMP: up to date Lipid Panel: up to date ASCVD Risk: patient already on statin - Aerobic exercise to reduce BP. Initial goal of 30 min walk 3-5x/week. Increase as tolerated. - low-sodium diet (goal: <2g/day) and heart healthy diet such as DASH to reduce BP and prevent ASCVD. - Home BP monitoring 1-2 x day with goal of <140/90. - Seek immediate medical attention for chest pain, palpitations, SOB, syncope, or sudden changes in mental status. - Do not change or discontinue current prescriptions without first consulting health care provider Assessment & Plan (11/03/2022 12:14 PM EDT): Maintenance: BMP: ordered Lipid Panel: ordered - Aerobic exercise to reduce BP. Initial goal of 30 min walk 3-5x/week. Increase as tolerated. - low-sodium diet (goal: <2g/day) and heart healthy diet such as DASH to reduce BP and prevent ASCVD. - Home BP monitoring 1-2 x day with goal of <140/90. - Seek immediate medical attention for chest pain, palpitations, SOB, syncope, or sudden changes in mental status. - Do not change or discontinue current prescriptions without first consulting health care provider Hyperlipidemia 04/19/1959 Obstructive sleep apnea syndrome 04/19/1959 Osteoarthritis of knee 04/19/1959 Permanent atrial fibrillation 04/19/1959 Assessment & Plan (10/20/2023 3:49 PM EDT): Today I notice patient's heart rate in the low side, patient is clinically asymptomatic, I made him do some arm exercise to evaluate for proper chronotropic response his HR went up to the low 50s, I waned to do an EKG but patient right now has a lot of back pain and is not able to lay down on the table so I will order for him to do it at the hospital once he feels a little better also and echocardiogram I will ask nurse to call cardiology office for him to have a sooner appointment with them Assessment & Plan (11/03/2022 12:14 PM EDT): Continue elequis and carvedilol Continue to follow with cardiology Encounters Date Type Department Care Team Description 05/11/2024 Telephone [facility] MEDICINE [address] [place] [phone] Darlene Cherry MD No Show 05/10/2024 Telephone [facility] MEDICINE [address] [place] [address] Darlene Cherry MD Appointment Request 05/04/2024 10:40 AM EST Office Visit [facility] WALK[facility] [address] [place] [address] Bella Boone DO Multifocal pneumonia (Primary Dx); Other heart failure (CMS/HCC); O2 dependent; Essential hypertension; Acute URI 05/04/2024 Telephone [facility] WALK[facility]IN CENTER [address] [place] [address] Faith You RN WIC triage 05/03/[address] [phone] Darlene Cherry MD Nurse Triage 05/01/[address] [address] Darlene Cherry MD 04/26/2024 Patient Outreach [address] [address] Darlene Cherry MD Medicare Annual Wellness Visit Initial (AWV unscheduled) 04/24/2024 Patient Outreach [address] [address] Darlene Cherry MD Transition Of Care (Tcm) (HDF- scheduled and SDOH screening completed on 01/11/2024) 04/24/[address] [address] Darlene Cherry MD Hospital Follow-up 04/21/2024 Patient Outreach [address] [phone] Darlene Cherry MD Transition Of Care (Tcm) (HDF- Unscheduled LVM) 04/16/2024 Orders Only [facility] External Provider, [facility] from Last 3 Months Immunizations Name Administration Dates Next Due Influenza High-dose Quadriva lent Preservative Free 01/13/2023,02/08/2020 Influenza Injectable Quadriv alant Preservative Free IIV4 MDCK 03/07/2019 Influenza Quadrivalent Adjuvanted 02/28/2021 Influenza injectable quadriv alent IIV4 with preservative 02/09/2018,03/08/2017,03/04/2016,02/08 Influenza, High Dose Seasona l, Preservative Free 01/19/2024,02/18/2016 Influenza, IIV3, injectable 01/22/2014, 1 Influenza, Split (incl. alejandra fied surface antigen) 02/16/2013,03/28/2012 Pfizer Covid-19 Vaccine 12+ 01/19/2024, Pneumococcal Conjugate PCV 13 12/18/2019 Pneumococcal Polysaccharide PPSV23 10/03/2014 RSV Bivalent 04/30/2023 Td (adult), 5 Lf tetanus tox oid, preservative free, adsorbed 06/23/2014 Tdap 10/03/2014 Zoster, Recombinant 07/09/2023,04/30/2023 Zoster, live 04/29/2016 Family History Medical History Relation Name Comments Lung cancer Father Prostate cancer Father Relation Name Status Comments Father Social History Tobacco Use Types Packs/Day Years Used Date Smoking Tobacco: Former Cigarettes Passive Smoke Exposure: Past Smokeless Tobacco: Never Tobacco Cessation:Counseling Given: Not Answered Alcohol Use Standard Drinks/Week Comments Yes 0 [...] Orientation Straight 02/16/2022 10 :17 AM EDT Last Filed Vital Signs Vital Sign Reading Time Taken Comments Blood Pressure 130/78 05/04/2024 12:08 PM EST Pulse 60 05/04/2024 10:40 AM EST Temperature 37 ??C (98.6 ??F) 05/04/2024 10:40 AM EST Respiratory Rate 20 05/04/2024 10:40 AM EST Oxygen Saturation 92% 05/04/2024 10:40 AM EST Inhaled Oxygen Concentration - - Weight 108 kg (238 lb) 05/04/2024 10:40 AM EST Height 160 cm (5' 3 ) 01/19/2024 10:14 AM EDT Body Mass Index 42.16 01/19/2024 10:14 AM EDT Plan of Treatment Upcoming Encounters Date Type Department Care Team (Late st Contact Info) Description 05/26/2024 1:00 PM EST Telemedicine [facility] MEDICINE [address] [place], [place] [phone] Darlene Cherry MD [address] [place] [address] Health Maintenance Due Date Last Done Comments CT Colonography 1955 Colonoscopy 1955 FIT 1955 FOBT 1955 Sigmoidoscopy 1955 Alcohol/Substance Use Screening 1966 Hepatitis C Screening 1972 Pneumococcal Vaccine: 50+ Years (3 of 3 - PPSV23 or PCV20) 12/17/2020 12/18/2019, 10/03/2014 Depression Screening 11/04/2023 11/03/2022, 11/04/19 23 DTaP/Tdap/Td Vaccines (2 - Td or Tdap) 10/03/2024 10/03/2014, 06/23/2014 SDOH Screening 01/10/2025 01/11/2024 Tobacco Screening 05/04/2025 05/04/2024 Colorectal Cancer Screening 11/14/2025 FIT DNA/Cologuard 11/14/2025 11/14/2022 Lipid Panel 11/04/2027 11/03/2022, 12/11/2020 RSV Patients and Patients Aged 60 years or older Completed 04/30/2023 Zoster Vaccines Completed 07/09/2023, 04/19, 04/29/2016 COVID-19 Vaccine Completed 01/19/2024, 08/2023, 02/20/2022, Additional history exists Influenza Vaccine Completed 01/19/2024, , 02/28/2021, Additional history exists HIB Vaccines Aged Out No longer eligi ble based on patient's age to complete this topic HPV Vaccines Aged Out No longer eligi ble based on patient's age to complete this topic Hepatitis A Vaccines Aged Out No long er eligible based on patient's age to complete this topic Hepatitis B Vaccines Aged Out No long er eligible based on patient's age to complete this topic IPV Vaccines Aged Out No longer eligi ble based on patient's age to complete this topic Meningococcal Vaccine Aged Out No caitlin barby eligible based on patient's age to complete this topic RSV under 20 months Aged Out No longe r eligible based on patient's age to complete this topic Rotavirus Vaccines Aged Out No longer eligible based on patient's age to complete this topic Procedures Procedure Name Priority Date/Time Associated Diagnosis Comments XR CHEST 2 VIEWS STAT 05/04/2024 12:0 0 PM EST Multifocal pneumonia POCT INFLUENZA B (ID NOW RAPID MOLECULAR) Routine 05/04/2024 11:01 AM EST Multifocal pneumonia POCT INFLUENZA A (ID NOW RAPID MOLECULAR) Routine 05/04/2024 11:01 AM EST Multifocal pneumonia POCT RAPID COVID ANTIGEN Routine 05/04/2024 11:01 AM EST Multifocal pneumonia URINALYSIS, COMPLETE, WITH REFLEX TO CULTURE Routine 04/16/2024 2:10 PM EST XR CHEST 2 VIEWS Routine 04/16/2024 12:4 1 PM EST LIPID PANEL, STANDARD Routine 11/03/2022 11:14 AM EDT Hypertension, unspecified type from Last 3 Months or Most Recently Relevant to Health Maintenance Results * XR Chest 2 Views (05/04/2024 12:00 PM EST) Only the most recent of2 resultswithin the time period is included. Anatomical Region Laterality Modality Chest Radiographic Che ging 05/04/2024 12:0 0 PM EST Narrative 05/04/2024 12:32 PM EST ?[facility] ?[address] ?[place] [address] ?XRay Report ? Signed ? Patient: Digris,Aly ?MR#: [id number] ?? 63 ? : 1955 ?Acct:[id number] ? Age/Sex: 68 / M ?ADM Date: 05/04/24 ? Loc: HO.HHCX ? Attending Dr: Bella Boone DO ? Ordering Physician: Bella Boone DO ?? Date of Service: 05/04/24 ?? Procedure(s): XR chest 2V ?? Accession Number(s): [id number] ? cc: Bella Boone DO ? EXAMINATION: [...] DD/ 1200 ? TD/TT: 05/04/24 1212 ? Supervisor Phosphoric Acid: ? Procedure Note Donmarta, Image - 05/04/2024 [facility] [address] [place] [address] XRay Report Signed Patient: Aly PaizMR#: [id number] 63 : 5Acct:[id number] Age/Sex: 68 / MADM Date: 05/04/24 Loc: HO.HHCX Attending Dr: Bella Boone DO Ordering Physician: Bella Boone DO Date of Service: 05/04/24 Procedure(s): XR chest 2V Accession Number(s): [id number] cc: Bella Boone DO EXAMINATION: XR CHEST CLINICAL INFORMATION: [...] by: Maxim Mckeon MD 05/04/2024 12:29 PM [facility] Dictated By: Maxim Mckeon MD Signed By: <Electronically signed by Maxim Mckeon MD in OV> 05/04/24 1229 DD/ 1200 TD/TT: 05/04/24 1212 Supervisor Phosphoric Acid: Bella Jurcsak DO IMG XR PROCEDURES Final Resu lt * Influenza B (ID NOW Rapid Molecular) (05/04/2024 11:01 AM EST) Pathologist [facility] Influenza B Negative Negative, Indeterminate [facility] Swab 05/04/2024 11:0 1 AM EST Bella Boone DO POINT OF CARE TEST ENTER/ENE T ORDERABLES Final Result Performing Organization Address City/[facility]/ZIP Co de Phone Number [facility] [address] [place] [phone] * Influenza A (ID NOW Rapid Molecular) (05/04/2024 11:01 AM EST) [facility] Influenza A Negative Negative, Indeterminate [facility] Swab 05/04/2024 11:0 1 AM EST Bella Boone DO POINT OF CARE TEST ENTER/ENE T ORDERABLES Final Result Performing Organization Address [facility] Co de Phone Number [facility] [address] [place] [phone] * POCT Rapid COVID Ag (05/04/2024 11:01 AM EST) [facility] Rapid COVID Ag Negative [facility] Swab 05/04/2024 11:0 1 AM EST Bella Boone DO POINT OF CARE TEST ENTER/ENE T ORDERABLES Final Result Performing Organization Address [facility] Co de Phone Number [facility] [address] [place] [phone] * (ABNORMAL) Urinalysis, Complete, with Reflex to Culture (04/16/2024 2:10 PM EST) [facility] Color Urine Yellow [facility] Appearance Urine Clear [facility] PH 6.0 5.0 - 9.0 [facility] Glucose Urine UA Negative Negative mg/dL [facility] Urine Blood Trace(A) Negative [facility] Specific Farley - Urine 1.015 1.005 - 1.025 [facility] Urine Protein 100 (2+)(A) Neg-Trace mg/dL [facility] Urine Ketones 15 Negative mg/dL [facility] Nitrite Urine Negative Negative [facility] Leukocyte Esterase Urine Negative Negative [facility] RBC Urine 0-2 0 - 2 /HPF [facility] Urine WBC 0-5 0 - 5 /HPF [facility] Urine Squamous Epithelial Cell 0-2 0 - 2 /HPF [facility] Urine Bacteria None Seen None Seen [facility] Hyaline Casts, Urine 0-2 0 - 2 /LPF [facility] 04/16/2024 2:10 PM EST 04/16/2024 2:12 PM EST Narrative [facility] - 04/16/2024 2:18 PM EST [id number], Clean Catch us Generic External Data Provider LAB URINE ORDERAB LES Final Result Performing Organization Address City/State/[facility] Co de Phone Number [facility] [address] [place] [phone] * Lipid Panel, Standard (11/03/2022 11:14 AM EDT) Triglycerides 56 mg/dL [facility] Comment:Desirable Triglyceri de: less than 150 mg/dLBorderline High Triglyceride 150-199 mg/dLHigh Triglyceride: 200-499 mg/dLVery High Triglyceride: greater than or equal to 5OO mg/dL Cholesterol 122 mg/dL [facility] Comment:Desirable Cholestero l: less than 200 mg/dLBorderline High Cholesterol: 200-239 mg/dLHigh Cholesterol: greater than 239 mg/dL LDL Cholesterol Calculated 66 mg/dl [facility] Comment:Desirable LDL: less than 100 mg/dLNear Optimal/Above Optimal LDL: 110- 129 mg/dLBorderline High LDL: 130-159 mg/dLHigh LDL: 160-189 mg/dLVery High LDL: greater than or equal to 190 mg/dL HDL Cholesterol 45 mg/dL [facility] Comment:Desirable HDL: great er than 40 mg/dL Note: This HDL assay may give artificially low results in patients with liver disease. Blood Venous blood specimen / Unknown 11/03/2022 11:14 AM EDT 11/03/2022 1:32 PM EDT us Darlene Blas MD LAB BLOOD ORDERABLES Final Result [facility] [address] [place] [phone] from Last 3 Months or Most Recently Relevant to Health Maintenance Insurance STANDARD [place]IC[place] [address] [place] [id number] Care Teams Bodily Injury Adjuster Relationship Specialty Start Date End Date Darlene Cherry MD [address] [place] [phone] PCP - General Family Medicine 12/29/17
--- OUTSIDE RECORDS SUMMARY | 2024-05-17 17:17 | XMS_ITS | Encounter Summary ---
Author Organization [employer] Address [address] [facility] 7t [place] [address] Care Team Providers Care Wood Grainer Name Role Phone Darlene Cherry MD Primary Care Provide r Reason for Visit * Reason Onset Date Comments Nurse Triage 05/03/2024 Encounter Details Date Type Department Care Team ([facility] st Contact Info) Description 05/03/2024 Telephone [facility] MEDICINE [address] [place], [place] [phone] Darlene Cherry MD [address] [place], [place] [phone] Nurse Triage Social History Tobacco Use Types Packs/Day Years [...] encounter Miscellaneous Notes * Telephone Encounter - Esperanza Tucker RN - 05/03/2024 10:08 AM EST Call returned to [employer] to triage below. Reports having nasal discharge and loss of tastex 2 days. No home kit for COVID-19 test done. No cough, ST, ear pain or KEANE. Pt denies any CP or wheezing. Pt was discharge from hospital 2 weeks ago for pneumonia. Pt does not have testkit at home. Advised of disposition, agrees to seek [facility] for exam as no sick on site availability on teams at time of call. Reviewed [facility] operating hours and that wait times vary. Reviewed home care advise, ER precautions and reasons to call back. Protocol Used: COVID-19 - Diagnosed or Suspected (Adult) Protocol-Based Disposition: Discuss with PCP and Callback by Nurse within 1 Hour Video visit offer not recorded Positive Triage Question: * HIGH RISK patient (e.g., weak immune system, age > 64 years, obesity with BMI of 30 or higher,, chronic lung disease) and COVID symptoms (e.g., cough, fever) (Exceptions: Already seen by doctor or PASSENGER CAR CONDUCTOR/PA and no new or worsening symptoms.) * All higher-acuity triage questions were negative Care Advice Discussed: * Reassurance and Education - Suspected COVID-19 and Testing Needed * Cough Medicines * Coughing Spells * Pain and Fever Medicines * Reasons To Call Back - Fever over 103 F (39.4 C) - Chest pain or difficulty breathing occurs - Cough or other symptoms last more than 3 weeks - You become worse * Telephone Encounter - Gama Alejandra - 05/03/2024 9:54 AM EST Tc from pt returning call regarding prior message.Pt states that when the call went through as he was going to pick it up the call went straight to voice mail. Contact pt at [phone] * Telephone Encounter - Gama Alejandra - 05/03/2024 9:13 AM EST Symptoms: Loss of Taste or Smell, Runny Nose Outcome: Schedule an appointment to be seen within 24 hours Reason: Caller denied all higher acuity questions The caller accepted this outcome. Contact pt at [phone] documented in this encounter Plan of Treatment Upcoming Encounters Date Type Department Care Team (Late st Contact Info) Description 05/26/2024 1:00 PM EST Telemedicine [facility] MEDICINE [address] [place] [address] Darlene Cherry MD [address] [place] [address] documented as of this encounter Visit Diagnoses Not on filedocumented in this encounter Additional Health Concerns Assessment Noted Time PHQ-9 Depression Total Score: 0 11/04/19 23 9:58 AM EDT documented as of this encounter Care Teams Wood Grainer Relationship Specialty Start Date End Date Darlene Cherry MD [address] [place] [address] PCP - General Family Medicine 12/29/17 documented as of this encounter
--- OUTSIDE RECORDS SUMMARY | 2024-05-17 17:17 | XMS_ITS | Encounter Summary ---
Author Organization [employer] Address [address] [facility] 7t [place] [address] Care Team Providers Care Set Up Operator Tool Name Role Phone Darlene Cherry MD Primary Care Provide r Reason for Visit * Reason Comments Med Refill Encounter Details Date Type Department Care Team ([facility] st Contact Info) Description 05/01/2024 Refill [facility] MEDICINE [address] [place], [place] [phone] Darlene Cherry MD [address] [place], [place] [phone] Social History Tobacco Use Types Packs/Day Years [...] AM EDT documented as of this encounter Plan of Treatment Upcoming Encounters Date Type Department Care Team (Late st Contact Info) Description 05/26/2024 1:00 PM EST Telemedicine [facility] MEDICINE [address] [place] [phone] Darlene Cherry MD [address] [place] [phone] documented as of this encounter Visit Diagnoses Not on filedocumented in this encounter Additional Health Concerns Assessment Noted Time PHQ-9 Depression Total Score: 0 11/04/19 23 9:58 AM EDT documented as of this encounter Care Teams Set Up Operator Tool Relationship Specialty Start Date End Date Darlene Cherry MD [address] [place] [phone] PCP - General Family Medicine 12/29/17 documented as of this encounter
--- OUTSIDE RECORDS SUMMARY | 2024-05-17 17:17 | XMS_ITS | Encounter Summary ---
Author Organization [employer] Address [address] [facility] 7t [place] [address] Care Team Providers Care Track Car Operator Name Role Phone Darlene Cherry MD Primary Care Provide r Reason for Visit * Reason Comments Transition Of Care (Tcm) HDF- scheduled and SDOH screening completed on 01/11/2024 Encounter Details Date Type Department Care Team ([facility] Contact Info) Description 04/24/2024 Patient Outreach [facility] MEDICINE [address] [place] [address] Darlene Cherry MD [address] [place] [address] Transition Of Care (Tcm) (HDF- scheduled and SDOH screening completed on 01/11/2024) Social History Tobacco Use Types Packs/Day Years [...] as of this encounter Miscellaneous Notes * Significant Event - Luci Bull - 04/24/2024 11:56 AM EST 04/24/24 1154 Hospital Discharges and Admission for [facility] Type of Visit Hospital Admission Date of Admission/Visit 04/16/24 Date of Discharge 04/20/24 Facility [facility] Diagnosis Acute diastolic CHF Multifocal pneumonia Disposition Discharged Home Follow-Up Actions Follow-Up Needed Provider appointment Follow-Up Outcome Spoke to Patient;Booked Appointment Initial Contact Date 04/24/24 AWILDA Marques placed outbound call to patient for HDF outreach. Patient's name and were confirmed. Patient educated on the importance of follow up with provider following inpatient admission. Patient offered an HDF appt. Patient is agreeable to an appointment and has been scheduled for 05/11/2024 at 9:30am with Dr. Castillo. Insurance verified prior to scheduling. Patient advised to bring to appointment a photo id and insurance card. Patient provided with education on contacting the Health Center with any questions or concerns prior to the scheduled appointment. Patient educated on extended clinic hours on Mondays and Wednesdays, and Walk-In Urgent Care Located in [facility] of [facility]. Patient provided with after-hours line for [facility], , which offer night time triage service and option to transfer to foreign collection clerk provider if needed. CC scanned discharge summary into patient's chart. Biggest concern for appointment at this time is med concerns. Message sent to team nurses to follow up. Appropriate screenings completed in anticipation of appointment. documented in this encounter Plan of Treatment Upcoming Encounters Date Type Department Care Team (Late st Contact Info) Description 05/26/2024 1:00 PM EST Telemedicine [facility] MEDICINE [address] [place] [phone] Darlene Cherry MD [address] [place] [phone] documented as of this encounter Visit Diagnoses Not on filedocumented in this encounter Additional Health Concerns Assessment Noted Time PHQ-9 Depression Total Score: 0 11/04/19 23 9:58 AM EDT documented as of this encounter Care Teams Track Car Operator Relationship Specialty Start Date End Date Darlene Cherry MD [address] [place] [phone] PCP - General Family Medicine 12/29/17 documented as of this encounter
--- OUTSIDE RECORDS SUMMARY | 2024-05-17 17:17 | XMS_ITS | Clinical Summary ---
Author Organization [facility] Address [address] [place] [phone] Phone Care Team Providers Care Textile Pin Worker Name Role Phone Darlene Cherry MD Primary Care Provide r Allergies No known active allergies Medications Calcium Carbonate-Vit D-Min (Caltrate 600+D Plus Minerals) 600-800 MG-UNIT chewable tablet Chew 1 tablet 2 (two) times a day Active amLODIPine (NORVASC) 10 MG tablet Take 1 tablet by mouth 1 (one) time each day Active carvedilol (COREG) 6.25 MG tablet Take 1 tablet by mouth 2 (two) times a day Active furosemide (LASIX) 40 MG tablet Take 1 tablet by mouth 1 (one) time each day Active Vitamin D High Potency 25 MCG (1000 UT) capsule Take 1,000 Units by mouth 1 (one) time each day 1 Active Jantoven 5 MG tablet TAKE 1 TABLET BY MOUTH DAILY DIRECTED BY COUMADIN CLINIC'S INDIVIDUALIZED DOSING INSTRUCTION. 1 Active apixaban (ELIQUIS) 5 MG tablet Take 1 tablet (5 mg total) by mouth in the morning and 1 tablet (5 mg total) in the evening. 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 11/03/2022 03/17/2023 Stasis dermatitis 11/03/2022 03/17/2023 Blurring of visual image 11/03/2022 023 Chronic kidney disease stage 2 02/26/2021 Hypertensive heart disease without congestive he art failure 02/26/2021 Localized edema 02/26/2021 Low blood pressure 02/26/2021 Morbid obesity 02/26/2021 Venous stasis 04/08/2018 03/17/2023 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 03/17/2023 Sleep apnea 02/15/2012 Overview (07/13/2022): The mask keeps him awake Osteoarthritis 02/15/2012 Hyperlipidemia 02/15/2012 Overview (07/13/2022): IMO update Atrial fibrillation 02/15/2012 Overview (07/13/2022): S/p cardioversion 04/2009 Chronic anticoagulation with coumadin Immunizations Name Administration Dates Next Due Influenza Split High Dose Preservative Free IM 1 04/19/2015 Family History Medical History Relation Comments Cancer Father prostate / lung Hypertension Father Hypertension Mother Relation Status Comments Father Mother Social History Tobacco Use Types Packs/Day Years Used Date Smoking Tobacco: Never Smokeless Tobacco: Never Alcohol Use Standard Drinks/Week Comments Yes 0 (1 standard drink = 0.6 oz pure alcohol) Alcoholic Drinks/day: Occasional social drink Sex and Gender Information Value Date Recorded Sex Assigned at Not on file Legal Sex Male 5:17 PM EST Gender Identity Not on file Sexual Orientation Not on file Last Filed Vital Signs Vital Sign Reading Time Taken Comments Blood Pressure 152/62 09/16/2023 1:13 PM EDT Pulse 54 09/16/2023 1:13 PM EDT Temperature - - Respiratory Rate - - Oxygen Saturation 94% 09/16/2023 1:13 PM EDT Inhaled Oxygen Concentration - - Weight 116 kg (254 lb 12.8 oz) 09/16/2023 1:13 P M EDT Height 162.6 cm (5' 4 ) 09/16/2023 1:13 PM EDT Body Mass Index 43.74 09/16/2023 1:13 PM EDT Plan of Treatment Upcoming Encounters Date Type Department Care Team (Late st Contact Info) Description 06/01/2024 2:15 PM EST Office Visit [facility] [address] [place] [phone] Petar Shafer MD [address] [facility] [address] [place] [phone] Health Maintenance Due Date Last Done Comments Colorectal Cancer Screening: Annual FOBT 10/27/2003 Colorectal Cancer Screening: Colonoscopy 10/27/2003 Colorectal Cancer Screening: Sigmoidoscopy 10/27/2003 Pneumococcal Vaccine: 65+ Years (3 of 3 - PPSV23 or PCV20) 02/12/2020 12/18/2019, 10/03/2014 Influenza Vaccine Completed 01/19/2024, , 03/07/2019, Additional history exists Hepatitis B Vaccine Aged Out No longe r eligible based on patient's age to complete this topic Insurance [address] [place] [id number] MEDICARE MEDICAID [place] [address] [place] [address] MEDICARE MEDICAID [place] Care Teams Textile Pin Worker Relationship Specialty Start Date End Date Darlene Cherry MD [address] [place] [address] [facility] [phone] PCP - General 04/29/20
--- OUTSIDE RECORDS SUMMARY | 2024-05-17 17:17 | XMS_ITS | Encounter Summary ---
Author Organization [employer] Address [address] [facility] 7t [place] [address] Care Team Providers Care Customer Specialist Name Role Phone Darlene Cherry MD Primary Care Provide r Reason for Visit * Reason Comments Medicare Annual Wellness Visit Initial A [place] unscheduled Encounter Details Date Type Department Care Team ([facility] st Contact Info) Description 04/26/2024 Patient Outreach [facility] MEDICINE [address] [place] [phone] Darlene Cherry MD [address] [place] [address] Medicare Annual Wellness Visit Initial (AWV unscheduled) Social History Tobacco Use Types Packs/Day Years [...] AM EDT documented as of this encounter Progress Notes * Page Nation - 04/26/2024 10:47 AM EST CC Page placed outbound call to the patient to schedule Medicare Annual Wellness Visit. No answerat this time. Patient's name and were not confirmed. CC left detailed message educating patienton Annual Wellness Visits. Provided contact information requesting a call back in order to schedulean [facility] appointment. Patient educated via voicemail on extended clinic hours on Wednesday through Wednesday, and Walk-In Urgent Care Located in [facility]. Patient provided with after-hours line for [facility], , which offer night time triage service and option to transfer to production team member provider [facility]. CC will mail out an Annual Wellness Letter to patient's address. documented in this encounter Plan of Treatment Upcoming Encounters Date Type Department Care Team (Late st Contact Info) Description 05/26/2024 1:00 PM EST Telemedicine [facility] MEDICINE [address] [place], [place] [phone] Darlene Cherry MD [address] [place] [address] documented as of this encounter Visit Diagnoses Not on filedocumented in this encounter Additional Health Concerns Assessment Noted Time PHQ-9 Depression Total Score: 0 11/04/19 23 9:58 AM EDT documented as of this encounter Care Teams Customer Specialist Relationship Specialty Start Date End Date Darlene Cherry MD [address] [place] [address] PCP - General Family Medicine 12/29/17 documented as of this encounter
--- OUTSIDE RECORDS SUMMARY | 2024-05-17 17:17 | XMS_ITS | Encounter Summary ---
Author Organization [employer] Address [address] [facility] 7t [place] [address] Care Team Providers Care Bed Manager Name Role Phone Darlene Cherry MD Primary Care Provide r Reason for Visit * Reason Onset Date Comments Nurse Triage 11/08/2023 Encounter Details Date Type Department Care Team ([facility] st Contact Info) Description 11/08/2023 Telephone [facility] MEDICINE [address] [place], [place] [phone] Darlene Cherry MD [address] [place], [place] [phone] Nurse Triage Social History Tobacco Use Types [...] encounter Miscellaneous Notes * Telephone Encounter - Katrin Russell RN - 11/08/2023 12:07 PM EDT Triage call Pt reports back pain has been worse the last 3 days mainly when getting out of a chair or getting up out of bed in the morning. Pt reports OV 10/20/23 Pt was prescribed muscle relaxers which helped. Pt doesn't want a refill of this medication. Pt is taking tylenol arthritis OTC and it is helping for pain control. Pt is asking if a referral could be obtained for physical therapy. No referral noted on chart. Advised Pt will send this triage note to PCP and nursing team for referral. Pt agrees with this plan and disposition. Protocol Used: Back Pain (Adult) Protocol-Based Disposition: Home Care Positive Triage Question: * Back pain * All higher-acuity triage questions were negative Care Advice Discussed: * Reassurance and Education - Back Pain * Cold or Heat * Sleep * Activity * Pain Medicines * Pain Medicines - Extra Notes and Warnings * Reasons To Call Back - Fever occurs - Numbness or weakness occurs, or bowel/bladder problems - Pain begins to shoot into the leg - Pain persists over 2 weeks - Pain becomes worse - You become worse * Telephone Encounter - Jh Mccullough - 11/08/2023 11:49 AM EDT Tc from pt returning call. * Telephone Encounter - iMles Sanford - 11/08/2023 10:37 AM EDT Tc from pt returning call regarding message prior. * Telephone Encounter - Gricel Damon - 11/08/2023 8:09 AM EDT Symptom: Back Pain - Not From Injury Outcome: Schedule an appointment to be seen within 3 days Reason: severe pain The caller accepted this outcome documented in this encounter Plan of Treatment Upcoming Encounters Date Type Department Care Team (Late st Contact Info) Description 05/26/2024 1:00 PM EST Telemedicine [facility] MEDICINE [address] [place] [phone] Darlene Cherry MD [address] [place] [address] documented as of this encounter Visit Diagnoses Not on filedocumented in this encounter Additional Health Concerns Assessment Noted Time PHQ-9 Depression Total Score: 0 11/04/19 23 9:58 AM EDT documented as of this encounter Care Teams Bed Manager Relationship Specialty Start Date End Date Darlene Cherry MD [address] [place] [phone] PCP - General Family Medicine 12/29/17 documented as of this encounter
--- OUTSIDE RECORDS SUMMARY | 2024-05-17 17:17 | XMS_ITS | Encounter Summary ---
Author Organization [employer] Address [address] [facility] 7t [place] [address] Care Team Providers Care Numerical Control Drill Press Operator Name Role Phone Darlene Cherry MD Primary Care Provide r Reason for Visit * Reason Comments Transition Of Care (Tcm) HDF- Unschedule d LVM Encounter Details Date Type Department Care Team ([facility] st Contact Info) Description 04/21/2024 Patient Outreach [facility] MEDICINE [address] [place] [address] Darlene Cherry MD [address] [place] [address] Transition Of Care (Tcm) (HDF- Unscheduled LVM) Social History Tobacco Use Types Packs/Day Years [...] * Significant Event - Luci Bull - 04/21/2024 9:01 AM EST 04/21/24 0856 Hospital Discharges and Admission for [facility] Type of Visit Hospital Admission Date of Admission/Visit 04/16/24 Date of Discharge 04/20/24 Facility [facility] Diagnosis Persistent atrial fibrillation, Congestive heart failure Disposition Discharged Home Follow-Up Actions Follow-Up Needed Provider appointment Follow-Up Outcome Left Voicemail Initial Contact Date 04/21/24 CC Luci Parekh placed outbound call to patient for HDF outreach. CC placing call to offer patient with an HDF appointment with provider. No answer at this time. Patient's name and were not confirmed. CC left detailed message educating patient on importance of following up with provider following an inpatient admission. Provided contact information requesting a call back in order to schedule theHDF appointment. Patient educated via voicemail on extended clinic hours on Mondays and Wednesdays,and Walk-In Urgent Care Located in [facility] of [facility]. Patient provided with after-hours line for [facility], , which offer night time triage service and option to transfer to insulation applicator provider if needed. CC scanned discharge summery into patient's chart. CC will place additional outreach call within2-5 business days. documented in this encounter Plan of Treatment Upcoming Encounters Date Type Department Care Team (Late st Contact Info) Description 05/26/2024 1:00 PM EST Telemedicine [facility] MEDICINE [address] [place] [address] Darlene Cherry MD [address] [place] [address] documented as of this encounter Visit Diagnoses Not on filedocumented in this encounter Additional Health Concerns Assessment Noted Time PHQ-9 Depression Total Score: 0 11/04/19 23 9:58 AM EDT documented as of this encounter Care Teams Numerical Control Drill Press Operator Relationship Specialty Start Date End Date Darlene Cherry MD [address] [place], [place] [phone] PCP - General Family Medicine 12/29/17 documented as of this encounter
== END 2024-05-17 15:55 | disposition home or self-care (01) ==
PROVIDERS: PCP Family Medicine; Referring Provider Family Medicine; Visit Provider Internal Medicine
DX: J18.9 Pneumonia, unspecified organism (principal); I48.19 Other persistent atrial fibrillation; E66.01 Morbid (severe) obesity due to excess calories; G47.33 Obstructive sleep apnea (adult) (pediatric); J98.4 Other disorders of lung; R09.02 Hypoxemia
CPT/HCPCS: 99204

== ENCOUNTER → 2024-05-17 15:20 | Outpatient (BNVA) | payer MEDICARE, MEDICAID, SELFPAY | PROVIDERS: PCP Family Medicine; Referring Provider Family Medicine; Visit Provider Internal Medicine | DX: J18.9 Pneumonia, unspecified organism (principal); J98.4 Other disorders of lung; G47.33 Obstructive sleep apnea (adult) (pediatric); R09.02 Hypoxemia; E66.01 Morbid (severe) obesity due to excess calories; I48.19 Other persistent atrial fibrillation; Z68.41 Body mass index [BMI] 40.0-44.9, adult | CPT/HCPCS: 99202 ==

== ENCOUNTER 2024-05-31 09:15 | Outpatient (REF) | payer MEDICARE, MEDICAID, SELFPAY ==
--- NOTE | ~2024-05-31 | XR_ITS ---
CLINICAL HISTORY: J18.9 - Pneumonia, unspecified organism 2 view chest x-ray Comparison: CR/SR - XR CHEST 2V - 05/04/24 12:19 EST Findings: There is stable cardiomegaly. There is prominence of the bronchovascular structures with bilateral reticular opacities. Given the history a viral process is not excluded although the findings could represent failure. No acute bony abnormalities. Impression: There is prominence of the bronchovascular structures with bilateral reticular opacities. Given the history a viral process is not excluded although the findings could represent failure. This document has been electronically signed by: Jamie Barragan MD on 05/31/2024 13:13:00
--- OUTSIDE RECORDS SUMMARY | 2024-05-31 10:25 | XMS_ITS | Clinical Summary ---
Author Organization [facility] Address [address] [place] [address] Phone Care Team Providers Care E Merchant Name Role Phone Darlene Cherry MD Primary [...] Visit [facility] [address] [place] [phone] Petar Shafer MD [address] [facility] [address] [place] [address] Health Maintenance Due Date Last Done Comments [...] topic Insurance [address] [place] [id number] MEDICARE [place]ICAID [place] [address] [place] [address] MEDICARE [place]ICAID [place] Care Teams E Merchant Relationship Specialty Start Date End Date Darlene Cherry MD [address] [place] [address] [facility] [address] PCP - General 04/29/20
--- OUTSIDE RECORDS SUMMARY | 2024-05-31 10:25 | XMS_ITS | Encounter Summary ---
Author Organization [employer] Address [address] [facility] 7t [place] [address] Care Team Providers Care Cargoman Name Role Phone Darlene Cherry MD Primary Care Provide r Reason for Visit * Reason Onset Date Comments Prior Authorization 10/20/2023 Encounter Details Date Type Department Care Team ([facility] st Contact Info) Description 10/20/2023 Telephone [facility] MEDICINE [address] [place] [phone] Darlene Cherry MD [address] [place] [address] Prior Authorization Social History Tobacco Use Types [...] - 10/20/2023 10:12 AM EDT Tc from [facility] [place] is needed for lidocaine (Lidoderm) 5 % patch documented in this encounter Plan of Treatment Not on file documented as of this encounter Visit Diagnoses Not on filedocumented in this encounter Additional Health Concerns Assessment Noted Time PHQ-9 Depression Total Score: 0 11/04/19 23 9:58 AM EDT documented as of this encounter Care Teams Cargoman Relationship Specialty Start Date End Date Darlene Cherry MD [address] [place] [id number] PCP - General Family Medicine 12/29/17 documented as of this encounter
--- OUTSIDE RECORDS SUMMARY | 2024-05-31 10:25 | XMS_ITS | Encounter Summary ---
Author Organization [employer] Address [address] [facility] 7t [place] [address] Care Team Providers Care Juke Box Servicer Name Role Phone Darlene Cherry MD Primary Care Provide r Reason for Visit * Reason Onset Date Comments No Show 05/11/2024 Encounter Details Date Type Department Care Team ([facility] st Contact Info) Description 05/11/2024 Telephone [facility] MEDICINE [address] [place], [place] [phone] Darlene Cherry MD [address] [place], [place] [phone] No Show Social History Tobacco Use Types [...] 10:26 AM EST TC placed to patient [phone] in regards to below message. Patient advised [...] Time PHQ-9 Depression Total Score: 0 11/04/19 9:58 AM EDT documented as of this encounter Care Teams Juke Box Servicer Relationship Specialty Start Date End Date Darlene Cherry MD [address] [place] [address] PCP - General Family Medicine 12/29/17 documented as of this encounter
--- OUTSIDE RECORDS SUMMARY | 2024-05-31 10:25 | XMS_ITS | Encounter Summary ---
Author Organization [employer] Address [address] [facility] 7[address] [place] [address] Care Team Providers Care Frame Expander Name Role Phone Darlene Cherry MD Primary Care Provide r Reason for Visit * Reason Onset Date Comments Nurse Triage 11/08/2023 Encounter Details Date Type Department Care Team ([facility] st Contact Info) Description 11/08/2023 Telephone [facility] MEDICINE [address] [place], [place] [phone] Darlene Cherry MD [address] [place], [place] [phone] Nurse Triage Social History Tobacco Use Types [...] pt returning call. * Telephone Encounter - Miles Sanford - 11/08/2023 10:37 AM EDT Tc [...] documented as of this encounter Care Teams Frame Expander Relationship Specialty Start Date End Date Darlene Cherry MD [address] [place] [address] PCP - General Family Medicine 12/29/17 documented as of this encounter
--- OUTSIDE RECORDS SUMMARY | 2024-05-31 10:25 | XMS_ITS | Encounter Summary ---
Author Organization [employer] Address [address] [facility] [place] [address] Care Team Providers Care Citrus Fruit Colorer Name Role Phone Darlene Cherry MD Primary Care Provide r Encounter Details Date Type Department Care Team (Latest Contact Info) Description 05/25/2024 Travel Social History Tobacco Use Types Packs/Day Years Used Date Smoking Tobacco: Former Cigarettes Passive Smoke Exposure: Past Smokeless Tobacco: Never Alcohol Use Standard Drinks/Week Comments Yes 0 (1 standard drink = 0.6 oz pur e alcohol) Special Occassions Depression Answer Date Recorded Patient Health Questionnaire-9 Score 0 11/03/2022 Housing Stability Answer Date Recorded What is your housing situation today? I have jayekatelin kevin 01/11/[address] you [...] as of this encounter Plan of Treatment Not on file documented as of this encounter Visit Diagnoses Not on filedocumented in this encounter Additional Health Concerns Assessment Noted Time PHQ-9 Depression Total Score: 0 11/04/19 23 9:58 AM EDT documented as of this encounter Care Teams Citrus Fruit Colorer Relationship Specialty Start Date End Date Darlene Cherry MD [address] [place] [address] PCP - General Family Medicine 12/29/17 documented as of this encounter
--- OUTSIDE RECORDS SUMMARY | 2024-05-31 10:25 | XMS_ITS | Encounter Summary ---
Author Organization [employer] Address [address] [facility] [address] 7[address] [place] [address] Care Team Providers Care Nitriles Lab Technician Name Role Phone Darlene Cherry MD Primary Care Provide r Reason for Visit * Reason Onset Date Comments CXR 05/29/2024 Encounter Details Date Type Department Care Team ([facility] st Contact Info) Description 05/29/2024 Telephone [facility] MEDICINE [address] [place] [address] Ambreen Obrien RN [address] [place] [address] CXR Social History Tobacco Use Types Packs/Day Years [...] Telephone Encounter - Ambreen Obrien RN - 05/29/2024 10:05 AM EST TC placed to patient [phone] to inform patient to repeat CXR to ensure resolution of PNA. Patient reports he needs to go to [facility] on Wednesday for a specialist appointment. Patient will complete CXR on Wednesday. Patient to be contacted with results once available. Patient to f/u PRN. ----- Message from Bella Boone DO sent at 05/29/2024 7:05 AM EST ----- Please have pt repeat CXR to ensure that PNA has resolved. Thank you. ----- Message ----- From: Josiah Torres Results In Sent: 05/04/2024 12:33 PM EST To: Bella Boone DO documented in this encounter Plan of Treatment Scheduled Orders Name Type Priority Associated Diagnoses Orde r Schedule XR Chest 2 Views Imaging Routine Multifocal pneumonia Expected: 05/29/2024, Expires: 05/29/2025 documented as of this encounter Visit Diagnoses Diagnosis Multifocal pneumonia documented in this encounter Additional Health Concerns Assessment Noted Time PHQ-9 Depression Total Score: 0 11/04/19 23 9:58 AM EDT documented as of this encounter Care Teams Nitriles Lab Technician Relationship Specialty Start Date End Date Darlene Cherry MD [address] [place] [address] PCP - General Family Medicine 12/29/17 documented as of this encounter
--- OUTSIDE RECORDS SUMMARY | 2024-05-31 10:25 | XMS_ITS | Encounter Summary ---
Author Organization [employer] Address [address] [facility] 7t [place] [address] Care Team Providers Care Tapper Bit Name Role Phone Darlene Cherry MD Primary Care Provide r Reason for Visit * Reason Onset Date Comments Appointment Request 05/10/2024 Encounter Details Date Type Department Care Team ([facility] st Contact Info) Description 05/10/2024 Telephone [facility] MEDICINE [address] [place], [place] [phone] Darlene Cherry MD [address] [place], [place] [phone] Appointment Request Social History Tobacco Use Types [...] 12:55 PM EST TC placed to patient [phone] in regards to below message. Patient did not answer, RN left a VMrequesting a CB to red team nurses. Of note, patients CXR returned showing mild residual pneumonia and patient should have repeat CXR in 4 weeks. RN will re-attempt calling by end of day. * Telephone Encounter - Gama Alejandra - 05/10/2024 10:32 AM EST Tc from pt requesting to R/s Apt from 05/11. Pt states will not be able to make it due to not feeling good and because of the Weather. Contact pt at [phone] documented in this encounter Plan of Treatment Not on file documented as of this encounter Visit Diagnoses Not on filedocumented in this encounter Additional Health Concerns Assessment Noted Time PHQ-9 Depression Total Score: 0 11/04/19 9:58 AM EDT documented as of this encounter Care Teams Tapper Bit Relationship Specialty Start Date End Date Darlene Cherry MD [address] [place] [phone] PCP - General Family Medicine 12/29/17 documented as of this encounter
--- OUTSIDE RECORDS SUMMARY | 2024-05-31 10:25 | XMS_ITS | Encounter Summary ---
Author Organization [employer] Address [address] [facility] 7t [place] [address] Care Team Providers Care Corrective Therapy Aide Teacher Name Role Phone Darlene Cherry MD Primary Care Provide r Reason for Referral * Consultation (Urgent) - Authorized Specialty Diagnoses / Procedures Referred By Eder boothe Referred To Contact Pulmonary Disease Diagnoses O2 dependent Bella Boone DO [address] [place] [address] Phone: tel: fax: [facility] Pulmonary [address] [place], [place] Phone: tel: fax: Referral ID Status Reason Start Date Expiration Date Visits Requested Visits Authorized [id number] Authorized Specialty Services Required 05/04/2024 05/04/2025 1 1 * PFT (Routine) - Authorized Specialty Diagnoses / Procedures Referred By Eder boothe Referred To Contact Diagnoses O2 dependent Procedures Pulmonary Function Test Bella Boone DO [address] [place] [address] Phone: tel: fax: [facility] [address] [place], [place] Phone: tel: fax: Referral ID Status Reason Start Date Expiration Date V isits Requested Visits Authorized [id number] Authorized 05/04/2024 05/04/2025 1 1 * Imaging (Routine) - Authorized Specialty Diagnoses / Procedures Referred By Contac t Referred To Contact Cardiology Diagnoses Other heart failure (CMS/HCC) Procedures Transthoracic Echo (TTE) Complete Bella Boone DO [address] [place] [address] Phone: tel: fax: [address] Phone: tel: fax: Referral ID Status Reason Start Date Expiration Date Visits Requested Visits Authorized [id number] Authorized Perform Procedure 05/04/2024 05/04/2025 1 1 Reason for Visit * Reason Comments Nasal Congestion Encounter Details Date Type Department Care Team (Late st Contact Info) Description 05/04/2024 10:40 AM EST Office Visit [facility] [address] [place] [address] Bella Boone DO [address] [place] [address] Multifocal pneumonia (Primary Dx); Other heart failure [...] presents for Sick Visit. He comes to MD reporting not feeling well. He spoke with [facility] pharmacist this morning and reported not doing well, having low energy, and losing his taste and smell. He told the [place] RN during triage that it was too long to wait until his F appt. He presented to [facility] ED on 04/16/24 c/o cough and SOB. He was tachypneic and hypertensive. His O2 was 82% and he was placed on 3L nasal cannula. His basic labs were nml, troponin negative. His BNP [id number]. COVID, flu, and RSV were negative. His [...] was discharged. 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 He follows with cards for his A. Fib and has appt next mos. History provided by: Patient telephonic case manager used: No Review of Systems Constitutional: Negative [...] syndrome Osteoarthritis of knee Permanent atrial fibrillation ([facility]/HCC) Stasis dermatitis Venous stasis Venous stasis ulcer of left calf limited to breakdown of skin with varicose veins ([facility]) Class 3 severe obesity due to excess calories with serious comorbidity and body mass index (BMI) of45.0 to 49.9 in adult ([facility]) Colon cancer screening Acute right-sided [...] PM EST Narrative 05/04/2024 12:32 PM EST ?[facility] ?[address] ?[place] [address] ?XRay Report ? Signed ? Patient: Digris,Aly ?MR#: [id number] ?? 63 ? : 1955 ?Acct:[id number] ? Age/Sex: 68 / M ?ADM Date: 05/04/24 ? Loc: HO.HHCX ? Attending Dr: Bella Boone DO ? Ordering Physician: Bella Boone DO ?? Date of Service: 05/04/24 ?? Procedure(s): XR chest 2V ?? Accession Number(s): [id number] ? cc: Bella Boone DO ? EXAMINATION: [...] DD/ 1200 ? TD/TT: 05/04/24 1212 ? Mechanical Assembly: ? Procedure Note Carlozter, Image - 05/04/2024 [place] [address] XRay Report Signed Patient: Aly PaizMR#: [id number] 63 : 5Acct:[id number] Age/Sex: 68 / MADM Date: 05/04/24 Loc: HO.HHCX Attending Dr: Bella Boone DO Ordering Physician: Bella Boone DO Date of Service: 05/04/24 Procedure(s): XR chest 2V Accession Number(s): [id number] cc: Bella Boone DO EXAMINATION: XR CHEST [...] Maxim Mckeon MD 05/04/2024 12:29 PM EST Dictated By: Maxim Mckeon MD Signed By: <Electronically signed by Maxim Mckeon MD in OV> 05/04/24 1229 DD/ 1200 TD/TT: 05/04/24 1212 Mechanical Assembly: us Bella Boone DO IMG XR PROCEDURES Final Resu lt * Influenza B (ID NOW Rapid Molecular) (05/04/2024 11:01 AM EST) [facility] Influenza B Negative Negative, Indeterminate [facility] Swab 05/04/2024 11:0 1 AM EST us Bella Boone DO POINT OF CARE TEST ENTER/ENE T ORDERABLES Final Result Performing Organization Address [facility] Co de Phone Number [facility] [address] [place] [phone] * Influenza A (ID NOW Rapid Molecular) (05/04/2024 11:01 AM EST) [facility] Influenza A Negative Negative, Indeterminate [facility] Swab 05/04/2024 11:0 1 AM EST Bella Boone DO POINT OF CARE TEST ENTER/ENE T ORDERABLES Final Result Performing Organization Address [facility] de Phone Number [facility] [address] [place] [phone] * POCT Rapid COVID Ag (05/04/2024 11:01 AM EST) [facility] Rapid COVID Ag Negative [facility] Swab 05/04/2024 11:0 1 AM EST Bella Boone DO POINT OF CARE TEST ENTER/ENE T ORDERABLES Final Result [facility] [address] [place] [phone] documented in this encounter Visit Diagnoses Diagnosis Multifocal pneumonia- Primary Other heart failure (CMS/HCC) O2 dependent Dependence on supplemental oxygen Essential hypertension Unspecified essential hypertension Acute URI Acute upper respiratory infections of unspecified site documented in this encounter Additional Health Concerns Assessment Noted Time PHQ-9 Depression Total Score: 0 11/04/19 23 9:58 AM EDT documented as of this encounter Care Teams Corrective Therapy Aide Teacher Relationship Specialty Start Date End Date Darlene Cherry MD [address] [place] [address] PCP - General Family Medicine 12/29/17 documented as of this encounter
--- OUTSIDE RECORDS SUMMARY | 2024-05-31 10:25 | XMS_ITS | Encounter Summary ---
Author Organization [employer] Address [address] [facility] 7t [place] [address] Care Team Providers Care Eyewear Manufacturing Supervisor Name Role Phone Darlene Cherry MD Primary Care Provide r Reason for Visit * Reason Comments Med Refill Encounter Details Date Type Department Care Team ([facility] st Contact Info) Description 05/01/2024 Refill [facility] MEDICINE [address] [place], [place] [phone] Darlene Cherry MD [address] [place], [place] [phone] Social History Tobacco Use Types Packs/Day Years [...] documented as of this encounter Care Teams Eyewear Manufacturing Supervisor Relationship Specialty Start Date End Date Darlene Cherry MD [address] [place] [phone] PCP - General Family Medicine 12/29/17 documented as of this encounter
--- OUTSIDE RECORDS SUMMARY | 2024-05-31 10:25 | XMS_ITS | Encounter Summary ---
Author Organization [employer] Address [address] [facility] 7t [place] [address] Care Team Providers Care Tree Doctor Name Role Phone Darlene Cherry MD Primary Care Provide r Reason for Visit * Reason Comments Televisit Encounter Details Date Type Department Care Team ([facility] st Contact Info) Description 05/25/2024 1:15 PM EST Telemedicine [facility] MEDICINE [address] [place] [address] Darlene Cherry MD [address] [place] [address] Pneumonia due to infectious organism, unspecified laterality, unspecified part of lung (Primary Dx); Primary hypertension; Other heart failure (CMS/HCC); Permanent atrial fibrillation (CMS/HCC) Social History Tobacco Use Types Packs/Day Years [...] as of this encounter Progress Notes * Darlene Blas MD - 05/25/2024 1:15 PM EST SUBJECTIVE: Aly Paiz is a 68 y.o. year old male who presents for HDF Patient reports his BP today 128/70 mmhg HR 43 [facility] (04/16/24-04/20/24) Patient with PMH of Afib on Eliquis and HTN presented for evaluation of worsening SOB along with sputum production. Workup consistent with bilateral basilar pneumonia and elevated BNP of 526. Admitted with acute hypoxic respiratory failure due to pneumonia and acute diastolic CHF. Patient also thoug h to have undiagnosed COPD. Treated with IV ceftriaxone, IC doxycycline, DuoNeb, cough medicine andIV steroids. Received IV furosemide for CHF. Responded well to treatment. Hypoxia resolved and patient to complete a 5 day course of abx and steroid taper. Noted to have suboptimal BP control and lisinopril was increased. Patient discharged home to follow up with pulmonology and PCP Patient reports he feels much better since his hospitalization, reports his breathing is much better and he is no longer using oxygen, he completed his antibiotic regimen but continues to takes Mucinex only once a day at bedtime, he reports he still has some mucus and phlegm coming out mainly at night. Patient was just seen by pulmonology it was ordered for him pulmonary function test, he reports he did up this morning, he has a follow up appointment with pulmonology again, he also has pending x-ray to be done soon Patient also tells me he has an upcoming cardiology appointment Patient tells me he is doing some exercises at home he declines home PT or PT for now Social History Social History Narrative Not on file Patient Active Problem List Diagnosis Hypertension Calcium pyrophosphate deposition disease Blurring of visual image Dependent edema Hyperlipidemia Obstructive sleep apnea syndrome Osteoarthritis of knee Permanent atrial fibrillation ([facility]/HCC) Stasis dermatitis Venous stasis Venous stasis ulcer of left calf limited to breakdown of skin with varicose veins ([facility]) Class 3 severe obesity due to excess calories with serious comorbidity and body mass index (BMI) of45.0 to 49.9 in adult ([facility]) Colon cancer screening Acute right-sided low back pain without sciatica Lumbar sprain Acute midline low back pain without sciatica Unstable gait Bradycardia Other heart failure ([facility]) Pneumonia due to infectious organism Family History Problem Relation Name Age of Onset Lung cancer Father Prostate cancer Father Review of Systems Constitutional: Negative. HENT: Negative. Respiratory: Negative. Cardiovascular: Negative. OBJECTIVE: There were no vitals filed for this visit. Follow Up: Follow up in about 3 months (around 08/22/2024) for chronic conditions. Current Outpatient Medications on File Prior to Visit Medication Sig Dispense Refill acetaminophen (Tylenol 8 Hour) 650 MG ER tablet Take 1 tablet (650 mg) by mouth every 8 (eight) hours if needed for mild pain. Do not crush, chew, or split. 40 tablet 1 albuterol 108 (90 Base) MCG/ACT inhaler Inhale 1 puff Every 4-6 hours as needed for wheezing or shortness of breath. amLODIPine (Norvasc) 10 MG tablet TAKE ONE TABLET BY MOUTH EVERY DAY 90 tablet 3 apixaban (Eliquis) 5 MG tablet Take 1 tablet (5 mg) by mouth 2 times daily. 60 tablet 0 carvedilol (Coreg) 6.25 MG tablet Take 1 tablet by mouth every 12 (twelve) hours. cholecalciferol (D3-1000) 25 MCG (1000 UT) capsule TAKE ONE CAPSULE BY MOUTH EVERY DAY. 90 capsule 1 cyclobenzaprine (Flexeril) 10 MG tablet Take 1 tablet (10 mg) by mouth 3 times daily for 10 days. 30 tablet 0 cyclobenzaprine (Flexeril) 10 MG tablet Take 1 tablet (10 mg) by mouth 3 times daily for 10 days. 30 tablet 0 fluticasone (Flonase) 50 MCG/ACT nasal spray Administer 2 sprays into each nostril Once per day. Shake gently. Before first use, prime pump. After use, clean tip and replace cap. 16 g 3 furosemide (Lasix) 40 MG tablet Take 1 tablet by mouth every 12 (twelve) hours. guaiFENesin (Mucinex) 600 MG 12 hr tablet Take 1 tablet (600 mg) by mouth if needed in the morning and at bedtime for cough or congestion. Do not crush, chew, or split. 30 tablet 0 lidocaine (Lidoderm) 5 % patch Apply 1 patch topically Once per day. Remove & discard patch within 12 hours or as directed by MD. 30 patch 1 lisinopril 30 MG tablet Take 1 tablet by mouth Once per day. loratadine (Claritin) 10 MG tablet Take 1 tablet (10 mg) by mouth Once per day. 30 tablet 3 simvastatin (Zocor) 20 MG tablet Take 20 mg by mouth in the morning. No current facility-administered medications on file prior to visit. Problem List Items Addressed This Visit Pneumonia due to infectious organism - Primary Likely completely resolved now Continue to follow with pulmonology for review of pulmonary function test Continue with Mucinex once a day and albuterol as needed Hypertension Blood pressure seems to be under control, I advised to continue lisinopril 30 mg daily Continue with carvedilol and amlodipine Other heart failure (CMS/HCC) Likely diastolic, patient is known to have chronic atrial fibrillation, he has upcoming follow-up appointment with cardiology Continue with Lasix 40 mg twice a day Continue with carvedilol 6.25 mg twice a day Continue with lisinopril 30 mg daily Permanent atrial fibrillation (CMS/HCC) Continue with Eliquis 5 mg twice a day Follow-up with cardiology documented in this encounter Miscellaneous Notes * Assessment & Plan Note - Darlene Blas MD - 05/25/2024 6:23 PM EST Associated Problem(s): Permanent atrial fibrillation (CMS/HCC) Continue with Eliquis 5 mg twice a day Follow-up with cardiology * Assessment & Plan Note - Darlene Blas MD - 05/25/2024 6:22 PM EST Associated Problem(s): Bradycardia Heart rate today 43, bradycardia no by cardiology team will continue to follow- up with them * Assessment & Plan Note - Darlene Blas MD - 05/25/2024 5:12 PM EST Associated Problem(s): Other heart failure (CMS/HCC) Likely diastolic, patient is known to have chronic atrial fibrillation, he has upcoming follow-up appointment with cardiology Continue with Lasix 40 mg twice a day Continue with carvedilol 6.25 mg twice a day Continue with lisinopril 30 mg daily * Assessment & Plan Note - Darlene Blas MD - 05/25/2024 5:12 PM EST Associated Problem(s): Hypertension Blood pressure seems to be under control, I advised to continue lisinopril 30 mg daily Continue with carvedilol and amlodipine * Assessment & Plan Note - Darlene Blas MD - 05/25/2024 5:11 PM EST Associated Problem(s): Pneumonia due to infectious organism Likely completely resolved now Continue to follow with pulmonology for review of pulmonary function test Continue with Mucinex once a day and albuterol as needed documented in this encounter Plan of Treatment Not on file documented as of this encounter Visit Diagnoses Diagnosis Pneumonia due to infectious organism, unspecified laterality, unspecified part of lung- Primary Primary hypertension Unspecified essential hypertension Other heart failure (CMS/HCC) Permanent atrial fibrillation (CMS/HCC) Atrial fibrillation documented in this encounter Additional Health Concerns Assessment Noted Time PHQ-9 Depression Total Score: 0 11/04/19 9:58 AM EDT documented as of this encounter Care Teams Tree Doctor Relationship Specialty Start Date End Date Darlene Cherry MD [address] [place] [address] PCP - General Family Medicine 12/29/17 documented as of this encounter
--- OUTSIDE RECORDS SUMMARY | 2024-05-31 10:25 | XMS_ITS | Encounter Summary ---
Author Organization [employer] Address [address] [facility] 7t [place] [address] Care Team Providers Care Submarine Cable Equipment Technician Name Role Phone Darlene Cehrry MD Primary Care Provide r Reason for Visit * Reason Onset Date Comments Nurse Triage 05/03/2024 Encounter Details Date Type Department Care Team ([facility] st Contact Info) Description 05/03/2024 Telephone [facility] MEDICINE [address] [place], [place] [phone] Darelne Cherry MD [address] [place], [place] [phone] Nurse Triage Social History Tobacco Use Types [...] 10:08 AM EST Call returned to Aly Paiz to triage below. Reports having nasal discharge and loss of tastex 2 days. No home kit for COVID-19 test done. No cough, ST, ear pain or KEANE. Pt denies any CP or wheezing. Pt was discharge from hospital 2 weeks ago for pneumonia. Pt does not have testkit at home. Advised of disposition, agrees to seek [facility] for exam as no sick on site availability on teams at time of call. Reviewed [facility] operating hours and that wait times vary. [...] fever) (Exceptions: Already seen by doctor or AIR TESTER/PA and no new or worsening symptoms.) * [...] straight to voice mail. Contact pt at [phone] * Telephone Encounter - Gama Alejandra - 05/03/2024 9:13 AM EST Symptoms: Loss of Taste or Smell, Runny Nose Outcome: Schedule an appointment to be seen within 24 hours Reason: Caller denied all higher acuity questions The caller accepted this outcome. Contact pt at [phone] documented in this encounter Plan of Treatment Not on file documented as of this encounter Visit Diagnoses Not on filedocumented in this encounter Additional Health Concerns Assessment Noted Time PHQ-9 Depression Total Score: 0 11/04/19 23 9:58 AM EDT documented as of this encounter Care Teams Submarine Cable Equipment Technician Relationship Specialty Start Date End Date Darlene Cherry MD [address] [place] [phone] PCP - General Family Medicine 12/29/17 documented as of this encounter
--- OUTSIDE RECORDS SUMMARY | 2024-05-31 10:26 | XMS_ITS | Clinical Summary ---
Author Organization [employer] Address [address] 7[address] [place] [address] Care Team Providers Care Claims Customer Service Representative Name Role Phone Darlene Cherry MD Primary [...] Active Problems Problem Noted Date Diagnosed Date Pneumonia due to infectious organism 05/25/2024 Assessment & Plan (05/25/2024 5:11 PM EST): Likely completely resolved now Continue to follow with pulmonology for review of pulmonary function test Continue with Mucinex once a day and albuterol as needed Other heart failure 05/04/2024 Assessment & Plan (05/25/2024 6:21 PM EST): Likely diastolic, patient is known to have chronic atrial fibrillation, he has upcoming follow-up appointment with cardiology Continue with Lasix 40 mg twice a day Continue with carvedilol 6.25 mg twice a day Continue with lisinopril 30 mg daily Acute midline low back pain without sciatica [...] PT referral Bradycardia 01/19/2024 Assessment & Plan (05/25/2024 6:22 PM EST): Heart rate today 43, bradycardia no by cardiology team will continue to follow- up with them Assessment & Plan (01/19/2024 2:13 PM EDT): [...] edema 07/19/2017 Hypertension 04/19/1959 Assessment & Plan (05/25/2024 6:23 PM EST): Blood pressure seems to be under control, I advised to continue lisinopril 30 mg daily Continue with carvedilol and amlodipine Assessment & Plan (01/19/2024 2:13 PM EDT): [...] Permanent atrial fibrillation 04/19/1959 Assessment & Plan (05/25/2024 6:23 PM EST): Continue with Eliquis 5 mg twice a day Follow-up with cardiology Assessment & Plan (10/20/2023 3:49 PM EDT): [...] Encounters Date Type Department Care Team Description 05/29/[address] [address] Ambreen Obrien, RN CXR 05/25/2024 1:15 PM EST Telemedicine [address] [address] Darlene Cherry MD Pneumonia due to infectious organism, unspecified laterality, unspecified part of lung (Primary Dx); Primary hypertension; Other heart failure (CMS/HCC); Permanent atrial fibrillation (CMS/HCC) 05/25/2024 Travel 05/11/[address] [address] Darlene Cherry MD No Show 05/10/[address] [address] Darlene Cherry MD Appointment Request 05/04/2024 10:40 AM EST Office Visit [facility] [address] [place] [phone] Bella Boone DO Multifocal pneumonia (Primary Dx); Other heart failure (CMS/HCC); O2 dependent; Essential hypertension; Acute URI 05/04/2024 Telephone [facility] [address] [place] [phone] Faith You, RN WIC triage 05/03/[address] [address] Darlene Cherry MD Nurse Triage 05/01/2024 Refill [address] [place] [address] Darlene Cherry MD 04/26/2024 Patient Outreach [address] [address] Darlene Cherry MD Medicare Annual Wellness Visit Initial (AWV unscheduled) 04/24/2024 Patient Outreach [address] [phone] Darlene Cherry MD Transition Of Care (Tcm) (HDF- scheduled and SDOH screening completed on 01/11/2024) 04/24/[address] [phone] Darlene Cherry MD Hospital Follow-up 04/21/2024 Patient Outreach [address] [address] Darlene Cherry MD Transition Of Care (Tcm) (HDF- Unscheduled LVM) 04/16/2024 Orders Only [facility] External Provider, [facility] from Last 3 Months Immunizations Name [...] antigen) 02/16/2013,03/28/2012 Pfizer Covid-19 Vaccine 12+ 01/19/2024, 4 Pneumococcal Conjugate PCV 13 12/18/2019 Pneumococcal Polysaccharide [...] 01/19/2024 10:14 AM EDT Plan of Treatment Health Maintenance Due Date Last Done Comments CT Colonography 1955 Colonoscopy 1955 FIT 1955 FOBT 1955 Sigmoidoscopy 1954 Alcohol/Substance Use Screening 1966 Hepatitis C Screening 1972 Depression Screening 11/04/2023 11/03/2022, 11/04/19 23 DTaP/Tdap/Td Vaccines (2 - Td or Tdap) 10/03/2024 10/03/2014, 06/23/2014 Pneumococcal Vaccine: 50+ Years (3 of 3 - PCV20 or PCV21) 12/17/2024 12/18/2019, 10/03/2014 SDOH Screening 01/10/2025 01/11/2024 Tobacco Screening 05/04/2025 [...] PM EST Narrative 05/04/2024 12:32 PM EST ?[facility] ?[address] ?[place] [address] ?XRay Report ? Signed ? Patient: Digris,Aly ?MR#: [id number] ?? 63 ? : 1955 ?Acct:[id number] ? Age/Sex: 68 / M ?ADM Date: /16/25 ? Loc: HO.HHCX ? Attending Dr: Bella Boone DO ? Ordering Physician: Bella Boone DO ?? Date of Service: 05/04/24 ?? Procedure(s): XR chest 2V ?? Accession Number(s): [id number] ? cc: Bella Boone DO ? EXAMINATION: [...] DD/ 1200 ? TD/TT: 05/04/24 1212 ? Instructor Flying: ? Procedure Note Priyank, Image - 05/04/2024 [facility] [address] [place] [address] XRay Report Signed Patient: Isaías Paiz#: [id number] 63 : 5Acct:[id number] Age/Sex: 68 / MADM Date: 05/04/24 Loc: HO.HHCX Attending Dr: Bella Boone DO Ordering Physician: Bella Boone DO Date of Service: 05/04/24 Procedure(s): XR chest 2V Accession Number(s): [id number] cc: Bella Boone DO EXAMINATION: XR CHEST [...] 05/04/24 1229 DD/ 1200 TD/TT: 05/04/24 1212 Instructor Flying: Bella Boone DO IMG XR PROCEDURES Final Resu lt * Influenza B (ID NOW Rapid Molecular) (05/04/2024 11:01 AM EST) Influenza B Negative Negative, Indeterminate [facility] Swab 05/04/2024 11:0 1 AM EST Bella oBone DO POINT OF CARE TEST ENTER/ENE T ORDERABLES Final Result [facility] [address] [place] [phone] * Influenza A (ID NOW Rapid Molecular) (05/04/2024 11:01 AM EST) Pathologist [facility] Influenza A Negative Negative, Indeterminate [facility] Swab 05/04/2024 11:0 1 AM EST Bella Boone DO POINT OF CARE TEST ENTER/ENE T ORDERABLES Final Result Performing Organization Address City/[facility]/ZIP Co de Phone Number [facility] [address] [place] [address] [phone] * POCT Rapid COVID Ag (05/04/2024 11:01 AM EST) [facility] Rapid COVID Ag Negative [facility] Swab 05/04/2024 11:0 1 AM EST Bella Boone DO POINT OF CARE TEST ENTER/ENE T ORDERABLES Final Result Performing Organization Address City/[facility] de Phone Number [facility] [address] [place] [phone] [phone] * (ABNORMAL) Urinalysis, Complete, with Reflex to Culture (04/16/2024 2:10 PM EST) [facility] Color Urine Yellow [facility] Appearance Urine Clear [facility] PH 6.0 5.0 - 9.0 [facility] Glucose Urine UA Negative Negative mg/dL [facility] Urine Blood Trace(A) Negative [facility] Specific [place] - Urine 1.015 1.005 - 1.025 [facility] Urine Protein 100 (2+)(A) Neg-Trace mg/dL [facility] Urine Ketones 15 Negative mg/dL [facility] Nitrite Urine Negative Negative [facility] Leukocyte Esterase Urine Negative Negative [facility] RBC Urine 0-2 0 - 2 /HPF [facility] Urine WBC 0-5 0 - 5 /HPF [facility] Urine Squamous Epithelial Cell 0-2 0 - 2 /HPF [facility] Urine Bacteria None Seen None Seen [facility] Hyaline Casts, Urine 0-2 0 - 2 /LPF [facility] 04/16/2024 2:10 PM EST 04/16/2024 2:12 PM EST Narrative [facility] - 04/16/2024 2:18 PM EST [id number], Clean Catch us Generic External Data Provider LAB URINE ORDERAB LES Final Result Performing Organization Address [facility] Co de Phone Number [facility] [address] [place] [phone] * Lipid Panel, Standard (11/03/2022 11:14 AM EDT) Triglycerides 56 mg/dL [facility] Comment:Desirable Triglyceri de: less than 150 mg/dLBorderline High Triglyceride 150-199 mg/dLHigh Triglyceride: 200-499 mg/dLVery High Triglyceride: greater than or equal to 5OO mg/dL Cholesterol 122 mg/dL [facility] Comment:Desirable Cholestero l: less than 200 mg/dLBorderline High Cholesterol: 200-239 mg/dLHigh Cholesterol: greater than 239 mg/dL LDL Cholesterol Calculated 66 mg/dl [facility] Comment:Desirable LDL: less than 100 mg/dLNear Optimal/Above Optimal LDL: 110- 129 mg/dLBorderline High LDL: 130-159 mg/dLHigh LDL: 160-189 mg/dLVery High LDL: greater than or equal to 190 mg/dL HDL Cholesterol 45 mg/dL [facility] Comment:Desirable HDL: great er than 40 mg/dL Note: This HDL assay may give artificially low results in patients with liver disease. Blood Venous blood specimen / Unknown 11/03/2022 11:14 AM EDT 11/03/2022 1:32 PM EDT us Darlene Blas MD LAB BLOOD ORDERABLES Final Result Performing Organization Address City/[facility]/ZIP Co de Phone Number [facility] [address] [place], [place] [phone] from Last 3 Months or Most Recently Relevant to Health Maintenance Insurance [facility] STANDARD MEDICARE Care Teams Claims Customer Service Representative Relationship Specialty Start Date End Date Darlene Cherry MD [address] [place] [address] PCP - General Family Medicine 12/29/17
--- OUTSIDE RECORDS SUMMARY | 2024-05-31 10:26 | XMS_ITS | Encounter Summary ---
Author Organization [employer] Address [address]t [place] [address] Care Team Providers Care Hr Advisor Name Role Phone Darlene Cherry MD Primary Care Provide r Reason for Visit * Reason Onset Date Comments [facility] triage 05/04/2024 Encounter Details Date Type Department Care Team ([facility] st Contact Info) Description 05/04/2024 Telephone [facility] [address] [place] [address] Faith You RN [facility] triage Social History Tobacco Use Types Packs/Day [...] 05/04/2024 10:44 AM EST Pt presents to [facility] c/o cough and too long to wait [...] documented as of this encounter Care Teams Hr Advisor Relationship Specialty Start Date End Date Darlene Cherry MD [address] [place] [address] PCP - General Family Medicine 12/29/17 documented as of this encounter
== END 2024-05-31 09:16 | disposition home or self-care (01) ==
LOC: HO.XRAY 09:15
PROVIDERS: Absent Provider Internal Medicine; PCP Internal Medicine; Visit Provider Family Medicine
DX: J18.9 Pneumonia, unspecified organism (principal); J98.4 Other disorders of lung
CPT/HCPCS: 71046; 94618; 99212

== ENCOUNTER → 2024-05-31 09:25 | Outpatient (BNV) | payer MEDICARE, MEDICAID, SELFPAY | PROVIDERS: Absent Provider Internal Medicine; PCP Internal Medicine; Visit Provider Radiology Diagnostic Radiology | DX: R91.8 Other nonspecific abnormal finding of lung field (principal) | CPT/HCPCS: 71046 ==

== ENCOUNTER 2024-05-31 10:06 | Outpatient (AMB) | payer MEDICARE, MEDICAID, SELFPAY ==
[2024-05-31 10:18] VITALS: BP 140/64; PULSE 40; O2SAT 94; BMI 41.6
--- NOTE | 2024-05-31 10:18 | A.OFFVIS_ITS ---
Vital Signs 05/31/24 10:18 Height 5 ft 3 in Weight 234 lb 12.677 oz BMI 41.6 BP 140/64 H Blood Pressure Location Lt brachial Position Sitting Pulse 40 L Pulse Source Pulse Oximeter Pulse Oximetry (%) 94 Oxygen Delivery Method Room Air Intake Visit Reasons: o2 Dependent/Pneumonia Intake Note: pt is here for follow up and states he can describe his lung as feeling wet still, some coughing usually in am. Tech Ed/Woodshop Teacher Required: No Allergies No Known Allergies [No Known Allergies*] Allergy (Verified 05/31/24 10:35) Medication List - Last Reconciled 05/31/24 by Prakash Bower MD acetaminophen ER 650 mg PO Q8H PRN albuterol sulfate 90 mcg/actuation 2 puffs inhalation Q4-6H PRN amlodipine 10 mg PO DAILY apixaban (Eliquis) 5 mg PO BID carvedilol 6.25 mg PO BID cholecalciferol (vitamin D3) 25 mcg PO DAILY furosemide 40 mg PO DAILY guaifenesin ER (Mucinex) 600 mg PO BEDTIME lisinopril 30 mg PO DAILY simvastatin 20 mg PO BEDTIME HPI HPI o2 Dependent/Pneumonia: Details: 68 years old gentleman is here after 2 weeks. He has no residual fever and cough is minimal. Chest x-ray today shows that the infiltrates in the lower lobes have decreased but he still has crowded bronchovascular markings, most likely secondary to atelectasis and congestive heart failure. He is on diuresis with furosemide 40 mg daily and has lost about. 4 more lb of weight He denies any wheezing attacks He was supposed to use O2 2 L/minute at night but he has stopped using, he also does not use any portable oxygen. [facility] Medical History (Updated 05/31/24 @ 12:01 by Prakash Bower MD) Hypoxemia Restrictive lung disease MICKEY (obstructive sleep apnea) Morbid obesity Social History Household Members: Family Household Members Other:: Sister Gillian Housing: Apartment Do you presently have visiting nurse or other home services: No Patient Tobacco Use Status: Former Tobacco user service: No Review of Systems Const All systems reviewed & are unremarkable except as noted in HPI and below Eyes Reports no additional complaints ENT Reports no additional complaints Card Reports irregular heart rhythm, Reports leg edema and Reports dyspnea on exertion Resp Reports as per HPI and Reports dyspnea on exertion GI Reports no additional complaints Reports no additional complaints Musc Reports abnormal gait (HAS WEAKNESS OF LOWER EXTREMITIES AND DIFFICULTY IN AMBULATING.) and Reports muscle weakness (GENERAL) Skin/Breast Reports system reviewed and no additional complaints, except as documented Neuro Reports abnormal gait (HAS WEAKNESS OF LOWER EXTREMITIES AND DIFFICULTY IN AMBULATING.) Psych Reports no additional complaints Endo Reports no additional complaints Physical Exam Vital Signs: Last Vital Signs Pulse 40 L 05/31/24 10:18 BP 140/64 H 05/31/24 10:18 Pulse Ox 94 05/31/24 10:18 Oxygen Delivery Method Room Air 05/31/24 10:18 BMI result Body Mass Index 41.6 HE IS GROSSLY OBESE WITH LARGE NECK, Const General: comfortable, no acute distress, alert and awake Orientation/consciousness: patient oriented x3 HEENT Head: Yes normal to inspection General nose exam: No nasal polyps present and No nasal discharge present Face and sinus: Yes sinuses nontender Mouth: oropharynx abnormals (NARROW AND CROWDED MALLAMPATI CLASS 3) Throat: Yes posterior oropharynx normal Eyes General: appearance normal, both eyes and all related structures Neck Neck: Yes normal visual inspection, Yes no lymphadenopathy, Yes trachea midline, Yes no JVD and Yes other (NECK CIRCUMFERENCE 18 IN) Thyroid: Thyroid normal Chest Chest palpation & inspection: normal inspection of the chest, normal palpation of entire chest wall and no tenderness Resp Other: PERCUSSION NOTE IS DIFFICULT BECAUSE OF HIS GROSS OBESITY BREATH SOUNDS ARE DIMINISHED OVER THE BASILAR AREAS. INSPIRATORY CREPITATIONS OVER THE LEFT LOWER LOBE, POSTERIORLY AND ALSO OVER THE RIGHT BASE Cardio Palpation: normal PMI Rate: regular rate Rhythm: regular rhythm Heart sounds: no gallops and no murmurs GI Palpation (GI): Soft to palpation, nontender, No hepatosplenomegaly present and no masses Auscultation: normal bowel sounds Back/Spine/Pelvis Thoracic/Lumbar Spine: thoracic and lumbar spine normal to inspection and thoraco-lumbar ROM limited Skin General skin exam: no rashes or lesions noted Neuro General: patient oriented x3, No gait normal (PATIENT NON AMBULATORY WAS USING WHEELCHAIR) and no focal motor deficits Cranial nerves: Yes CN's II-XII intact bilaterally Extrem General: Yes normal to inspection, Yes no calf tenderness and Yes venous stasis dermatitis (HE HAS SKIN CHANGES OF CHRONIC STASIS DERMATITIS, BUT THERE IS NO PITTING ) Psych Appearance: grossly normal and well kempt Speech and movement: Normal speech and movement present Office Procedures 6 Minute Walk Time:: 10:50 SPO2 % at rest: 95 Pulse at rest: 44 SPO2 % during excercise: 91 Pulse during excercise: 55 SPO2 % after excercise: 94 Pulse after excercise: 57 Distance in yards walked: 120 Librado Score: 7 Performance Observations:: Patient walked on level ground using cane in left hand. Gait is slow due to significant arthritic pain in both knees. Needed to stop x3 for knee discomfort. Patient maintained O2 saturation of 91% or greater for the entire walk. He tires easily and says he walks as little as possible due to knee discomfort. Patient did not require supplemental oxygen. [address] - 6 Minute Walk Results Reviewed Results Reviewed: HE HAD A REPEAT CHEST X-RAY JUST THIS MORNING. NO OFFICIAL REPORT YET. BUT I HAVE LOOKED AT THE IMAGING AND HE HAS, . CARDIOMEGALY , POOR EXPANSION OF THE BASILAR AREAS, THERE ALSO SOME ATELECTATIC CHANGES IN THE LEFT BASE. THERE IS NO FINDING OF ACTIVE PNEUMONIA. Assessment & Plan Assessment & Plan (1) Morbid obesity: Comment: PATIENT IS MORBIDLY OBESE, HE SAYS HE HAS ACTUALLY LOST SOME WEIGHT. THERE IS A HISTORY OF OBSTRUCTIVE SLEEP APNEA DIAGNOSED MANY YEARS AGO, HE COULD NOT TOLERATE THE CPAP. CLAIMS THAT HE SLEEPS IN. LATERAL POSITION AND CAN SLEEP OKAY Code(s): E66.01 - Morbid (severe) obesity due to excess calories Category: Medical Plan: HE NEEDS TO BE CHECKED FOR NOCTURNAL HYPOXEMIA, AND IF SO WE NEED TO REINFORCE HIM TO USE OXYGEN AT NIGHT. (2) Community acquired pneumonia: Comment: PATIENT HAS BEEN TREATED FOR BILATERAL LOWER LOBE PNEUMONIA WORSE ON THE LEFT SIDE. HE RESPONDED WELL TO THE TREATMENT. OF LETY AT THE IMAGES I THINK HE ALSO HAD PATCHES OF ATELECTASIS. Code(s): J18.9 - Pneumonia, unspecified organism Category: Medical Qualifiers: Laterality: unspecified laterality Qualified Code(s): J18.9 - Pneumonia, unspecified organism Plan: I TOLD HIM THAT THERE IS NO RESIDUAL PNEUMONIA BUT HE DOES HAVE SOME PATCHY ATELECTASIS OF THE LOWER LOBES. HE NEEDS TO DO DEEP BREATHING EXERCISES WITH THE INCENTIVE SPIROMETRY DEVICE WHICH WAS GIVEN. TO HIM FROM THE HOSPITAL HE SHOULD CONTINUE TO TAKE DIURETIC THERAPY LASIX 40 MG DAILY PRESCRIBED, (3) Persistent atrial fibrillation: Comment: PATIENT HAS PERSISTENT ATRIAL FIBRILLATION, HE IS ON ANTICOAGULATION Code(s): I48.19 - Other persistent atrial fibrillation Category: Medical Plan: ADVISED TO CONTINUE FOLLOWING WITH THE CARDIOLOGY SERVICE REGULARLY (4) MICKEY (obstructive sleep apnea): Comment: NOTED ABOVE UNDER MORBID OBESITY. HE DOES HAVE HISTORY OF OBSTRUCTIVE SLEEP APNEA AND WAS STARTED ON CPAP THERAPY BUT HE COULD NOT USE IT. WHILE IN THE HOSPITAL HE WAS NOTED TO HAVE NOCTURNAL HYPOXEMIA AND WAS SENT HOME WITH O2 2 L/MINUTE AT NIGHT. WHICH HE HAS STOPPED USING Code(s): G47.33 - Obstructive sleep apnea (adult) (pediatric) Category: Medical Plan: I DISCUSSED WITH HIM ABOUT THE POSSIBILITY OF OBSTRUCTIVE SLEEP APNEA. HE SAY IS YES HE MAY HAVE IT BUT HE IS NOT WILLING TO USE CPAP. I TOLD HIM THAT IN THAT CASE HE SHOULD AT LEAST USE O2 2 L/MINUTE AT NIGHT. (5) Restrictive lung disease: Comment: PATIENT IS EXPECTED TO HAVE SEVERE RESTRICTIVE PULMONARY DISORDER, SECONDARY TO HIS OBESITY. Code(s): J98.4 - Other disorders of lung Category: Medical Plan: PULMONARY FUNCTION TEST IS ORDERED . HE IS ADVISED AND STRESSED THAT HE SHOULD CONTINUE TO DO INCENTIVE SPIROMETRY Q.2 HOURS WHILE AWAKE. (6) Hypoxemia: Comment: DURING HOSPITALIZATION FOUND TO HAVE HYPOXEMIA AT NIGHT, AND ALSO DESATURATED WITH ANY WALKING. HE WAS SENT HOME ON OXYGEN BUT HE STOPPED USING IT 6 MINUTES WALK TODAY IN THE OFFICE THE: LOWEST O2 SAT WAS 90% SO HE DOES NOT NEED ANY PORTABLE UNIT. Code(s): R09.02 - Hypoxemia Category: Medical Plan: IT IS OKAY TO NOT USE O2 DURING THE DAYTIME, BUT HE SHOULD CONTINUE TO USE O2 2 L/MINUTE AT NIGHT FOR NOCTURNAL HYPOXEMIA. Medications: Changed From guaifenesin ER (Mucinex) 600 mg PO BID 14 tabs 0RF To guaifenesin ER (Mucinex) 600 mg PO BEDTIME Coding Level of Care Code Est Pt Level 3 (07929) Diagnoses Morbid obesity E66.01 Community acquired pneumonia, unspecified laterality J18.9 Laterality: unspecified laterality Persistent atrial fibrillation I48.19 MICKEY (obstructive sleep apnea) G47.33 Restrictive lung disease J98.4 Hypoxemia R09.02 CPT Codes Coding ([id number])
[2024-05-31 11:07] VITALS: PULSE 44; O2SAT 95
--- OUTSIDE RECORDS SUMMARY | 2024-05-31 11:57 | XMS_ITS | Encounter Summary ---
Author Organization [employer] Address [address] [facility]t [place] [address] Care Team Providers Care Associate Director Of Nursing Name Role Phone Darlene Cherry MD Primary [...] documented as of this encounter Care Teams Associate Director Of Nursing Relationship Specialty Start Date End Date Darlene Cherry MD [address] [place] [address] PCP - General Family Medicine 12/29/17 documented as of this encounter
--- OUTSIDE RECORDS SUMMARY | 2024-05-31 11:57 | XMS_ITS | Clinical Summary ---
Author Organization [employer] Address [address] 7t [place] [address] Care Team Providers Care Patrol Agent Name Role Phone Darlene Cherry MD Primary [...] Type Department Care Team Description 05/29/[address] [address] Ambreen Obrien, RN CXR 05/25/2024 1:15 PM EST Telemedicine [address] [address] Darlene Cherry MD Pneumonia due to infectious organism, unspecified laterality, unspecified part of lung (Primary Dx); Primary hypertension; Other heart failure (CMS/HCC); Permanent atrial fibrillation (CMS/HCC) 05/25/2024 Travel 05/11/[address] [address] Darlene Cherry MD No Show 05/10/[address] [address] Darlene Cherry MD Appointment Request 05/04/2024 10:40 AM EST Office Visit [facility] [address] [place] [phone] Bella Boone DO Multifocal pneumonia (Primary Dx); Other heart failure (CMS/HCC); O2 dependent; Essential hypertension; Acute URI 05/04/2024 Telephone [facility] [address] [place] [phone] Faith You, RN WIC triage 05/03/[address] [address] Darlene Cherry MD Nurse Triage 05/01/2024 Refill [address] [place] [address] Darlene Cherry MD 04/26/2024 Patient Outreach [address] [address] Darlene Cherry MD Medicare Annual Wellness Visit Initial (AWV unscheduled) 04/24/2024 Patient Outreach [address] [phone] Darlene Cherry MD Transition Of Care (Tcm) (HDF- scheduled and SDOH screening completed on 01/11/2024) 04/24/[address] [phone] Darlene Cherry MD Hospital Follow-up 04/21/2024 Patient Outreach [address] [address] Darlene Cherry MD Transition Of Care (Tcm) (HDF- Unscheduled LVM) 04/16/2024 Orders Only [facility] External Provider, [facility] from Last 3 Months Immunizations Name [...] PM EST Narrative 05/04/2024 12:32 PM EST ?[facility] ?[address] ?[place] [address] ?XRay Report ? Signed ? Patient: Digris,Aly ?MR#: [id number] ?? 63 ? : 1955 ?Acct:[id number] ? Age/Sex: 68 / M ?ADM Date: /16/25 ? Loc: HO.HHCX ? Attending Dr: Bella Boone DO ? Ordering Physician: Bella Boone DO ?? Date of Service: 05/04/24 ?? Procedure(s): XR chest 2V ?? Accession Number(s): [id number] ? cc: Bella Boone DO ? EXAMINATION: [...] DD/ 1200 ? TD/TT: 05/04/24 1212 ? Applique Sewer: ? Procedure Note Priyank, Image - 05/04/2024 [facility] [address] [place] [address] XRay Report Signed Patient: Isaías Paiz#: [id number] 63 : 5Acct:[id number] Age/Sex: 68 / MADM Date: 05/04/24 Loc: HO.HHCX Attending Dr: Bella Boone DO Ordering Physician: Bella Boone DO Date of Service: 05/04/24 Procedure(s): XR chest 2V Accession Number(s): [id number] cc: Bella Boone DO EXAMINATION: XR CHEST [...] 05/04/24 1229 DD/ 1200 TD/TT: 05/04/24 1212 Applique Sewer: Bella Boone DO IMG XR PROCEDURES Final Resu lt * Influenza B (ID NOW Rapid Molecular) (05/04/2024 11:01 AM EST) Influenza B Negative Negative, Indeterminate [facility] Swab 05/04/2024 11:0 1 AM EST Bella Boone DO POINT OF CARE TEST ENTER/ENE T ORDERABLES Final Result [facility] [address] [place] [phone] * Influenza A (ID NOW Rapid Molecular) (05/04/2024 11:01 AM EST) Pathologist [facility] Influenza A Negative Negative, Indeterminate [facility] Swab 05/04/2024 11:0 1 AM EST Bella Boone DO POINT OF CARE TEST ENTER/ENE T ORDERABLES Final Result Performing Organization Address City/[facility]/ZIP Co de Phone Number [facility] [address] [place] [phone] * POCT Rapid COVID Ag (05/04/2024 11:01 AM EST) [facility] Rapid COVID Ag Negative [facility] Swab 05/04/2024 11:0 1 AM EST Bella Boone DO POINT OF CARE TEST ENTER/ENE T ORDERABLES Final Result Performing Organization Address City/[facility] de Phone Number [facility] [address] [place] [phone] * (ABNORMAL) Urinalysis, Complete, with Reflex to Culture (04/16/2024 2:10 PM EST) [facility] Color Urine Yellow [facility] Appearance Urine Clear [facility] PH 6.0 5.0 - 9.0 [facility] Glucose Urine UA Negative Negative mg/dL [facility] Urine Blood Trace(A) Negative [facility] Specific [place] - Urine 1.015 1.005 - 1.025 [facility] Urine Protein 100 (2+)(A) Neg-Trace mg/dL [facility] Urine Ketones 15 Negative mg/dL [facility] Nitrite Urine Negative Negative [facility] Leukocyte Esterase Urine Negative Negative [facility] RBC Urine 0-2 0 - 2 /HPF [facility] Urine WBC 0-5 0 - 5 /HPF [facility] Urine Squamous Epithelial Cell 0-2 0 - 2 /HPF [facility] Urine Bacteria None Seen None Seen [facility] Hyaline Casts, Urine 0-2 0 - 2 /LPF [facility] 04/16/2024 2:10 PM EST 04/16/2024 2:12 PM EST Narrative [facility] - 04/16/2024 2:18 PM EST [id number], Clean Catch us Generic External Data Provider LAB URINE ORDERAB LES Final Result Performing Organization Address [facility] Co de Phone Number [facility] [address] [place] [phone] * Lipid Panel, Standard (11/03/2022 11:14 AM EDT) Triglycerides 56 mg/dL [facility] Comment:Desirable Triglyceri de: less than 150 mg/dLBorderline High Triglyceride 150-199 mg/dLHigh Triglyceride: 200-499 mg/dLVery High Triglyceride: greater than or equal to 5OO mg/dL Cholesterol 122 mg/dL [facility] Comment:Desirable Cholestero l: less than 200 mg/dLBorderline High Cholesterol: 200-239 mg/dLHigh Cholesterol: greater than 239 mg/dL LDL Cholesterol Calculated 66 mg/dl [facility] Comment:Desirable LDL: less than 100 mg/dLNear Optimal/Above Optimal LDL: 110- 129 mg/dLBorderline High LDL: 130-159 mg/dLHigh LDL: 160-189 mg/dLVery High LDL: greater than or equal to 190 mg/dL HDL Cholesterol 45 mg/dL [facility] Comment:Desirable HDL: great er than 40 mg/dL Note: This HDL assay may give artificially low results in patients with liver disease. Blood Venous blood specimen / Unknown 11/03/2022 11:14 AM EDT 11/03/2022 1:32 PM EDT us Darlene Blas MD LAB BLOOD ORDERABLES Final Result Performing Organization Address City/[facility]/ZIP Co de Phone Number [facility] [address] [place], [place] [phone] from Last 3 Months or Most Recently Relevant to Health Maintenance Insurance [facility] STANDARD MEDICARE Care Teams Patrol Agent Relationship Specialty Start Date End Date Darlene Cherry MD [address] [place] [address] PCP - General Family Medicine 12/29/17
--- OUTSIDE RECORDS SUMMARY | 2024-05-31 11:57 | XMS_ITS | Encounter Summary ---
Author Organization [employer] Address [address] [facility] 7t [place] [address] Care Team Providers Care General Warehouse Associate Name Role Phone Darlene Cherry MD Primary Care Provide r Reason for Visit * Reason Onset Date Comments Nurse Triage 11/08/2023 Encounter Details Date Type Department Care Team ([facility] st Contact Info) Description 11/08/2023 Telephone [facility] [address] [place], [place] [phone] Darlene Cherry MD [address] [place], [place] [phone] Nurse Triage Social History Tobacco Use Types [...] documented as of this encounter Care Teams General Warehouse Associate Relationship Specialty Start Date End Date Darlene Cherry MD [address] [place] [address] PCP - General Family Medicine 12/29/17 documented as of this encounter
--- OUTSIDE RECORDS SUMMARY | 2024-05-31 11:57 | XMS_ITS | Clinical Summary ---
Author Organization [facility] Address [address] [place] [phone] Phone Care Team Providers Care Movement Education Specialist Name Role Phone Darlene Cherry MD [...] Visit [facility] [address] [place] [phone] Petar Shafer MD [address] [facility] [address] [place] [phone] Health Maintenance Due Date Last Done Comments [...] topic [address] [id number] MEDICARE [place]ICAID [place] [address] [place] [address] MEDICARE MEDICAID [place] Care Teams Movement Education Specialist Relationship Specialty Start Date End Date Darlene Cherry MD [address] [place] [address] [place] [phone] PCP - General 04/29/20
--- OUTSIDE RECORDS SUMMARY | 2024-05-31 11:57 | XMS_ITS | Encounter Summary ---
Author Organization [employer] Address [address] [facility] 7t [place] [address] Care Team Providers Care Client Delivery Specialist Name Role Phone Darlene Cherry MD Primary Care Provide r Reason for Visit * Reason Comments Med Refill Encounter Details Date Type Department Care Team ([facility] st Contact Info) Description 05/01/2024 Refill [facility] [address] [place], [place] [phone] Darlene Cherry MD [address] [place], [place] [phone] Social History Tobacco Use Types Packs/Day Years [...] documented as of this encounter Care Teams Client Delivery Specialist Relationship Specialty Start Date End Date Darlene Cherry MD [address] [place] [phone] PCP - General Family Medicine 12/29/17 documented as of this encounter
--- OUTSIDE RECORDS SUMMARY | 2024-05-31 11:57 | XMS_ITS | Encounter Summary ---
Author Organization [employer] Address [address] [facility] [address] 7[address] [place] [address] Care Team Providers Care Senior Procurement Specialist Name Role Phone Darlene Cherry MD Primary Care Provide r Reason for Visit * Reason Onset Date Comments [facility] triage 05/04/2024 Encounter Details Date Type Department Care Team ([facility] st Contact Info) Description 05/04/2024 Telephone [facility] [address] [place] [address] [facility] triage Social History Tobacco Use Types Packs/Day [...] 05/04/2024 10:44 AM EST Pt presents to [facility] c/o cough and too long to wait [...] documented as of this encounter Care Teams Senior Procurement Specialist Relationship Specialty Start Date End Date Darlene Cherry MD [address] [place] [address] PCP - General Family Medicine 12/29/17 documented as of this encounter
--- OUTSIDE RECORDS SUMMARY | 2024-05-31 11:57 | XMS_ITS | Encounter Summary ---
Author Organization [employer] Address [address] [facility] 7t [place] [address] Care Team Providers Care Slabber Name Role Phone Darlene Cherry MD Primary Care Provide r Reason for Visit * Reason Onset Date Comments Prior Authorization 10/20/2023 Encounter Details Date Type Department Care Team ([facility] st Contact Info) Description 10/20/2023 Telephone [facility] [address] [place] [phone] Darlene Cherry MD [address] [place] [address] Prior Authorization Social History Tobacco Use Types [...] - 10/20/2023 10:12 AM EDT Tc from [facility] [place] is needed for lidocaine (Lidoderm) 5 % patch documented in this encounter Plan of Treatment Not on file documented as of this encounter Visit Diagnoses Not on filedocumented in this encounter Additional Health Concerns Assessment Noted Time PHQ-9 Depression Total Score: 0 11/04/19 23 9:58 AM EDT documented as of this encounter Care Teams Slabber Relationship Specialty Start Date End Date Darlene Cherry MD [address] [place] [phone] PCP - General Family Medicine 12/29/17 documented as of this encounter
--- OUTSIDE RECORDS SUMMARY | 2024-05-31 11:57 | XMS_ITS | Encounter Summary ---
Author Organization [employer] Address [address] [facility] 7t [place] [address] Care Team Providers Care Air Hammer Operator Name Role Phone Darlene Cherry MD Primary Care Provide r Reason for Visit * Reason Comments Televisit Encounter Details Date Type Department Care Team ([facility] st Contact Info) Description 05/25/2024 1:15 PM EST Telemedicine [facility] MEDICINE [address] [place] [address] Darlene Cherry MD [address] [place] [address] Pneumonia due to infectious organism, unspecified laterality, [...] syndrome Osteoarthritis of knee Permanent atrial fibrillation ([facility]/HCC) Stasis dermatitis Venous stasis Venous stasis ulcer of left calf limited to breakdown of skin with varicose veins ([facility]) Class 3 severe obesity due to excess calories with serious comorbidity and body mass index (BMI) of45.0 to 49.9 in adult ([facility]) Colon cancer screening Acute right-sided low back pain without sciatica Lumbar sprain Acute midline low back pain without sciatica Unstable gait Bradycardia Other heart failure ([facility]) Pneumonia due to infectious organism [...] documented as of this encounter Care Teams Air Hammer Operator Relationship Specialty Start Date End Date Darlene Cherry MD [address] [place] [address] PCP - General Family Medicine 12/29/17 documented as of this encounter
--- OUTSIDE RECORDS SUMMARY | 2024-05-31 11:57 | XMS_ITS | Encounter Summary ---
Author Organization [employer] Address [address] [facility] 7t [place] [address] Care Team Providers Care Dimension Stone Quarry Supervisor Name Role Phone Darlene Cherry MD Primary Care Provide r Reason for Visit * Reason Onset Date Comments No Show 05/11/2024 Encounter Details Date Type Department Care Team ([facility] st Contact Info) Description 05/11/2024 Telephone [facility] MEDICINE [address] [place], [place] [phone] Darlene Cherry MD [address] [place], [place] [phone] No Show Social History Tobacco Use Types [...] 10:26 AM EST TC placed to patient [phone] in regards to below message. Patient advised [...] documented as of this encounter Care Teams Dimension Stone Quarry Supervisor Relationship Specialty Start Date End Date Darlene Cherry MD [address] [place] [address] PCP - General Family Medicine 12/29/17 documented as of this encounter
--- OUTSIDE RECORDS SUMMARY | 2024-05-31 11:57 | XMS_ITS | Encounter Summary ---
Author Organization [employer] Address [address] [facility] 7t [place] [address] Care Team Providers Care Supply Clerk Name Role Phone Darlene Cherry MD Primary Care Provide r Reason for Referral * Consultation (Urgent) - Authorized Specialty Diagnoses / Procedures Referred By Eder boothe Referred To Contact Pulmonary Disease Diagnoses O2 dependent Bella Boone DO [address] [place] [address] Phone: tel: fax: [facility] [address] [place], [place] Phone: tel: fax: Referral ID Status Reason Start Date Expiration Date Visits Requested Visits Authorized [id number] Authorized Specialty Services Required 05/04/2024 05/04/2025 1 1 * PFT (Routine) - Authorized Specialty Diagnoses / Procedures Referred By Eder boothe Referred To Contact Diagnoses O2 dependent Procedures Pulmonary Function Test Bella Boone DO [address] [place] [address] Phone: tel: fax: [facility] [address] [place], [place] Phone: tel: fax: Referral ID Status Reason Start Date Expiration Date V isits Requested Visits Authorized [id number] Authorized 05/04/2024 05/04/2025 1 1 * Imaging (Routine) - Authorized Specialty Diagnoses / Procedures Referred By Contac t Referred To Contact Cardiology Diagnoses Other heart failure (CMS/HCC) Procedures Transthoracic Echo (TTE) Complete Bella Boone DO [address] [place] [address] Phone: tel: fax: [address] Phone: tel: fax: Referral ID Status Reason Start Date Expiration Date Visits Requested Visits Authorized [id number] Authorized Perform Procedure 05/04/2024 05/04/2025 1 1 Reason for Visit * Reason Comments Nasal Congestion Encounter Details Date Type Department Care Team (Late st Contact Info) Description 05/04/2024 10:40 AM EST Office Visit [facility] [address] [place] [address] Bella Boone DO [address] [place] [address] Multifocal pneumonia (Primary Dx); Other heart failure [...] presents for Sick Visit. He comes to [place] reporting not feeling well. He spoke with [facility] pharmacist this morning and reported not doing well, having low energy, and losing his taste and smell. He told the [place] RN during triage that it was too long to wait until his [place] appt. He presented [place] [facility] on 04/16/24 c/o cough and SOB. He was tachypneic and hypertensive. His O2 was 82% and he was placed on 3L nasal cannula. His basic labs were nml, troponin negative. His BNP [id number]. COVID, flu, and RSV were negative. His [...] was discharged. He does not have a mining engineering technologist. He follows with cards for his A. Fib and has appt next mos. History provided by: Patient internal medicine nurse used: No Review of Systems Constitutional: Negative [...] syndrome Osteoarthritis of knee Permanent atrial fibrillation ([facility]/HCC) Stasis dermatitis Venous stasis Venous stasis ulcer of left calf limited to breakdown of skin with varicose veins ([facility]) Class 3 severe obesity due to excess calories with serious comorbidity and body mass index (BMI) of45.0 to 49.9 in adult ([facility]) Colon cancer screening Acute right-sided low back [...] PM EST Narrative 05/04/2024 12:32 PM EST ?[facility] ?[address] ?[place] [address] ?XRay Report ? Signed ? Patient: Digris,Aly ?MR#: [id number] ?? 63 ? : 1955 ?Acct:[id number] ? Age/Sex: 68 / M ?ADM Date: 05/04/24 ? Loc: HO.HHCX ? Attending Dr: Bella Boone DO ? Ordering Physician: Bella Boone DO ?? Date of Service: 05/04/24 ?? Procedure(s): XR chest 2V ?? Accession Number(s): [id number] ? cc: Bella Boone DO ? EXAMINATION: [...] DD/ 1200 ? TD/TT: 05/04/24 1212 ? Account Group Supervisor: ? Procedure Note Carlozter, Image - 05/04/2024 [place] [address] XRay Report Signed Patient: Aly PaizMR#: [id number] 63 : 5Acct:[id number] Age/Sex: 68 / MADM Date: 05/04/24 Loc: HO.HHCX Attending Dr: Bella Boone DO Ordering Physician: Bella Boone DO Date of Service: 05/04/24 Procedure(s): XR chest 2V Accession Number(s): [id number] cc: Bella Boone DO EXAMINATION: XR CHEST [...] 05/04/24 1229 DD/ 1200 TD/TT: 05/04/24 1212 Account Group Supervisor: us Bella Boone DO IMG XR PROCEDURES Final Resu lt * Influenza B (ID NOW Rapid Molecular) (05/04/2024 11:01 AM EST) [facility] Influenza B Negative Negative, Indeterminate [facility] Swab 05/04/2024 11:0 1 AM EST us Bella Boone DO POINT OF CARE TEST ENTER/ENE T ORDERABLES Final Result Performing Organization Address [facility] Co de Phone Number [facility] [address] [place] [phone] * Influenza A (ID NOW Rapid Molecular) (05/04/2024 11:01 AM EST) [facility] Influenza A Negative Negative, Indeterminate [facility] Swab 05/04/2024 11:0 1 AM EST Bella Boone DO POINT OF CARE TEST ENTER/ENE T ORDERABLES Final Result Performing Organization Address [facility] de Phone Number [facility] [address] [place] [phone] * POCT Rapid COVID Ag (05/04/2024 11:01 AM EST) [facility] Rapid COVID Ag Negative [facility] Swab 05/04/2024 11:0 1 AM EST Bella Boone DO POINT OF CARE TEST ENTER/ENE T ORDERABLES Final Result [facility] [address] [place] [phone] documented in this encounter Visit Diagnoses Diagnosis Multifocal pneumonia- Primary Other heart failure (CMS/HCC) O2 dependent Dependence on supplemental oxygen Essential hypertension Unspecified essential hypertension Acute URI Acute upper respiratory infections of unspecified site documented in this encounter Additional Health Concerns Assessment Noted Time PHQ-9 Depression Total Score: 0 11/04/19 23 9:58 AM EDT documented as of this encounter Care Teams Supply Clerk Relationship Specialty Start Date End Date Darlene Cherry MD [address] [place] [address] PCP - General Family Medicine 12/29/17 documented as of this encounter
--- OUTSIDE RECORDS SUMMARY | 2024-05-31 11:57 | XMS_ITS | Encounter Summary ---
Author Organization [employer] Address [address] [facility] 7t [place] [address] Care Team Providers Care Mason Liner Name Role Phone Darlene Cherry MD Primary Care Provide r Reason for Visit * Reason Onset Date Comments Nurse Triage 05/03/2024 Encounter Details Date Type Department Care Team ([facility] st Contact Info) Description 05/03/2024 Telephone [facility] MEDICINE [address] [place], [place] [phone] Darlene Cherry MD [address] [place], [place] [phone] Nurse Triage Social History Tobacco Use Types [...] home. Advised of disposition, agrees to seek [facility] for exam as no sick on site availability on teams at time of call. Reviewed [facility] operating hours and that wait times vary. [...] fever) (Exceptions: Already seen by doctor or GROUND WATER TECHNICIAN/PA and no new or worsening symptoms.) * [...] straight to voice mail. Contact pt at [phone] * Telephone Encounter - Gama Alejandra - 05/03/2024 9:13 AM EST Symptoms: Loss of Taste or Smell, Runny Nose Outcome: Schedule an appointment to be seen within 24 hours Reason: Caller denied all higher acuity questions The caller accepted this outcome. Contact pt at [phone] documented in this encounter Plan of Treatment Not on file documented as of this encounter Visit Diagnoses Not on filedocumented in this encounter Additional Health Concerns Assessment Noted Time PHQ-9 Depression Total Score: 0 11/04/19 23 9:58 AM EDT documented as of this encounter Care Teams Mason Liner Relationship Specialty Start Date End Date Darlene Cherry MD [address] [place] [phone] PCP - General Family Medicine 12/29/17 documented as of this encounter
--- OUTSIDE RECORDS SUMMARY | 2024-05-31 11:57 | XMS_ITS | Encounter Summary ---
Author Organization [employer] Address [address] [facility] 7t [place] [address] Care Team Providers Care Concrete Pipe Making Machine Operator Name Role Phone Darlene Cherry MD Primary Care Provide r Reason for Visit * Reason Onset Date Comments Appointment Request 05/10/2024 Encounter Details Date Type Department Care Team ([facility] st Contact Info) Description 05/10/2024 Telephone [facility] MEDICINE [address] [place], [place] [phone] Darlene Cherry MD [address] [place], [place] [phone] Appointment Request Social History Tobacco Use Types [...] 12:55 PM EST TC placed to patient [phone] in regards to below message. Patient did [...] because of the Weather. Contact pt at [phone] documented in this encounter Plan of Treatment Not on file documented as of this encounter Visit Diagnoses Not on filedocumented in this encounter Additional Health Concerns Assessment Noted Time PHQ-9 Depression Total Score: 0 11/04/19 9:58 AM EDT documented as of this encounter Care Teams Concrete Pipe Making Machine Operator Relationship Specialty Start Date End Date Darlene Cherry MD [address] [place] [phone] PCP - General Family Medicine 12/29/17 documented as of this encounter
--- OUTSIDE RECORDS SUMMARY | 2024-05-31 11:57 | XMS_ITS | Encounter Summary ---
Author Organization [employer] Address [address] [facility] [address] 7t [place] [address] Care Team Providers Care Retail Pharmacy Merchandiser Name Role Phone Darlene Cherry MD Primary Care Provide r Reason for Visit * Reason Onset Date Comments CXR 05/29/2024 Encounter Details Date Type Department Care Team ([facility] st Contact Info) Description 05/29/2024 Telephone [facility] MEDICINE [address] [place] [address] Ambreen Obrien RN [address] [place] [address] CXR Social History Tobacco Use Types Packs/Day [...] 10:05 AM EST TC placed to patient [phone] to inform patient to repeat CXR to ensure resolution of PNA. Patient reports he needs to go to [facility] on Wednesday for a specialist appointment. Patient [...] documented as of this encounter Care Teams Retail Pharmacy Merchandiser Relationship Specialty Start Date End Date Darlene Cherry MD [address] [place] [address] PCP - General Family Medicine 12/29/17 documented as of this encounter
== END 2024-05-31 11:10 | disposition home or self-care (01) ==
PROVIDERS: PCP Internal Medicine; Visit Provider Internal Medicine
DX: E66.01 Morbid (severe) obesity due to excess calories (principal); J18.9 Pneumonia, unspecified organism; I48.19 Other persistent atrial fibrillation; G47.33 Obstructive sleep apnea (adult) (pediatric); J98.4 Other disorders of lung; R09.02 Hypoxemia
CPT/HCPCS: 94618; 99213

== ENCOUNTER 2024-06-13 09:43 | Outpatient (REF) | payer MEDICARE, MEDICAID, SELFPAY ==
--- NOTE | 2024-06-13 09:54 | PFT_ITS ---
Flows: FEV1: 59 % of predicted at 1.52 L FVC: 75 % of predicted at 2.51 L FEV1/FVC: 60 % Bronchodilator response: Absent Volumes: Total lung capacity: 75 % of predicted at 4.25 L Residual volume: 95 % of predicted at 1.91 L Slow vital capacity: 64 % of predicted at 2.34 L Expiratory reserve volume: 70 % of predicted at 0.62 L Diffusion capacity: Mildly decreased, corrects to normal after adjustment for alveolar ventilation. 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 Decreased diffusion capacity suggests emphysema. MTDD
[2024-06-13 10:07] VITALS: PULSE 54; O2SAT 94
--- NOTE | 2024-06-13 10:38 | CA_ITS ---
Transthoracic Echocardiogram Patient (Last, First, Middle): Aly Paiz, Gender: Male Date of : 1955 Age: 68 Procedure Date: 06/13/2024 Procedure Type: Transthoracic Echocardiogram Location: OP Height: 160.02 cm Weight: 108.01 kg BSA: 2.08 m2 Heart Rate: bpm BP: 158 / 70 mmHg Construction Executive: TO Referring MD: Bella Boone DO Symptoms: I50.89 HEART FAILURE Study Quality: Fair ECG Rhythm: Sinus Conclusions: - The left ventricular systolic function is normal. The calculated ejection fraction is 58% by biplane method. - The apical septum is hypokinetic. - Severe biatrial enlargement. - There is moderate mitral annular calcification. - Mild pulmonary hypertension is present. Findings Left Ventricle Normal left ventricular cavity size. The left ventricular systolic function is normal. The calculated ejection fraction is 58% by biplane method. Diastolic function is indeterminate on the basis of available data. There is moderate septal and moderate basal asymmetric hypertrophy. Possible hypokinesis in the inferior septum. Wall Motion Rest Echo Findings The apical septum is hypokinetic. Right Ventricle Mildly increased right ventricular cavity size. There is mildly decreased right ventricular systolic function. Atria Severe biatrial enlargement. Aortic Valve There is mild calcification of the aortic valve. There is no aortic valve stenosis. There is no aortic valve regurgitation. Mitral Valve There is moderate mitral annular calcification. There is trace mitral valve regurgitation. There is no mitral valve stenosis. Pulmonic Valve The pulmonic valve is likely normal. Tricuspid Valve There is mild tricuspid valve regurgitation. The right ventricular systolic pressure is 49 mmHg. Mild pulmonary hypertension is present. Great Vessels The asc aorta is normal in size. Venous The inferior vena cava is mildly dilated and collapses greater than 50% with inspiration. Pericardium/Pleural There is a trivial pericardial effusion. Prior Study Comparison Changes noted compared to prior study dated: 11/12/2023. Apical septum with some improvement in contractility. Measurements 2D Linear Measurements IVSd: 1.42 0.6-0.9/0.6-1.0 cm LVIDd: 5.46 3.9-5.3/4.2-5.9 cm LVIDd Index: 2.63 2.4-3.2/2.2-3.1 cm/m2 LVIDs: 3.12 2.0-3.6 cm LVPWd: 0.79 0.7-1.1 cm LA Diam: 4.70 2.7-3.8/3.0-4.0 cm LAIDs Index: 2.26 1.5-2.3 cm/m2 LV Mass: 300.54 67-162/88-224 g LV Mass Index: 144.49 43-95/49-115 g/m2 LVOT Diam: 2.20 3.0+(-)1.3 cm 2D Systolic Function EF 4C: 61.50 >55% EF 2C: 53.30 >55% EF BiP: 57.50 >55% Mitral Valve MV VTI: 0.40 MV Pk Ariel: 1.84 MV Mn Ariel: 0.66 MV Pk Grad: 14.00 MV Mn Grad: 3.00 MV Pk E: 1.48 MV Decel Time: 220.00 E'Lateral: 7.72 E'Medial: 4.17 E/E' Med: 35.50 E/E' Lat: 19.20 PHT: 64.00 MVA PHT: 3.44 MVA Continuity: 2.68 Decel [place]: 6.75 Aortic Valve AoV Pk Ariel: 2.05 AoV Mn Ariel: 1.37 AoV VTI: 0.53 AoV Pk Grad: 17.00 Aov Mn Grad: 9.00 KARLIE Cont.VTI: 2.05 LVOT LVOT Pk Ariel: 1.21 LVOT Mn Ariel: 0.71 LVOT VTI: 0.29 LVOT Pk Grad: 6.00 LVOT Mn Grad: 2.00 LVOT Diam: 2.20 LVOT Area: 3.80 Diastolic Function MV Pk E: 1.48 E'Medial: 4.17 E/E' Med: 35.50 E' Laterial: 7.72 E/E' Lat: 19.20 Right Ventricle TAPSE (mm): 16.00 TVS' Ariel: 11.00 Tricuspid Valve TR Pk Ariel: 3.21 TR Pk Grad: 41.00 RA Press: 8.00 RVSP: 49.00 Great Vessels Aorta Ao Asc: 3.40 2.1-3.4 cm Updated in Other Vendor System with Status of Final Andrew Cheung MD electronically signed on 06/14/2024 8:52:42 AM with status of Final
--- OUTSIDE RECORDS SUMMARY | 2024-06-13 11:01 | XMS_ITS | Clinical Summary ---
Author Organization [employer] Address [address] 7[address] [place] [address] Care Team Providers Care Trimmer Tailer Name Role Phone Darlene Cherry MD Primary Care Provide r Allergies No known active allergies Medications furosemide (Lasix) 40 MG tablet Take 1 tablet by mouth every 12 (twelve) hours. Active carvedilol (Coreg) 6.25 MG tablet Take 1 tablet by mouth every 12 (twelve) hours. Active apixaban (Eliquis) 5 MG tabletIndication s:Atrial fibrillation and flutter (CMS/HCC) Take 1 tablet (5 mg) by mouth 2 times daily. 60 tablet 3 Active simvastatin (Zocor) 20 MG tablet Take 20 mg by mouth in the morning. 3 Active lidocaine (Lidoderm) 5 % patchIndications :Acute right-sided low back pain without sciatica Apply 1 patch topically Once per day. Remove & discard patch within 12 hours or as directed by MD. 30 patch 1 4 Active amLODIPine (Norvasc) 10 MG tablet TAKE ONE TABLET BY MOUTH EVERY DAY 90 tablet 3 4 Active cyclobenzaprine (Flexeril) 10 MG tabletIndication s:Acute right-sided low back pain without sciatica Take 1 tablet (10 mg) by mouth 3 times daily for 10 days. 30 tablet 4 Active cyclobenzaprine (Flexeril) 10 MG tabletIndication s:Acute right-sided low back pain without sciatica Take 1 tablet (10 mg) by mouth 3 times daily for 10 days. 30 tablet 4 Active cholecalciferol (D3-1000) 25 MCG (1000 UT) capsule TAKE ONE CAPSULE BY MOUTH EVERY DAY. 90 capsule 1 5 Active albuterol 108 (90 Base) MCG/ACT inhaler Inhale 1 puff Every 4-6 hours as needed for wheezing or shortness of breath. 5 Active lisinopril 30 MG tablet Take 1 tablet by mouth Once per day. 5 Active loratadine (Claritin) 10 MG tablet Take 1 tablet (10 mg) by mouth Once per day. 30 tablet 3 5 05/04/19 26 Active fluticasone (Flonase) 50 MCG/ACT nasal spray Administer 2 sprays into each nostril Once per day. Shake gently. Before first use, prime pump. After use, clean tip and replace cap. 16 g 3 5 05/04/19 26 Active guaiFENesin (Mucinex) 600 MG 12 hr tablet Take 1 tablet (600 mg) by mouth if needed in the morning and at bedtime for cough or congestion. Do not crush, chew, or split. 30 tablet 5 05/04/19 26 Active acetaminophen (Tylenol 8 Hour) 650 MG ER tablet Take 1 tablet (650 mg) by mouth every 8 (eight) hours if needed for mild pain. Do not crush, chew, or split. 40 tablet 1 5 06/03/19 25 benzonatate (Tessalon Perles) 100 MG capsule Take 1 capsule (100 mg) by mouth if needed in the morning, at noon, and at bedtime for cough for up to 10 days. Do not crush or chew. 30 capsule 5 05/14/19 25 Active Problems Problem Noted Date Diagnosed Date [...] Encounters Date Type Department Care Team Description 05/31/2024 Orders Only [facility] External Provider, [facility] 05/29/[address] [address] Ambreen Obrien, RN CXR 05/25/2024 1:15 PM EST Telemedicine [address] [address] Darlene Cherry MD Pneumonia due to infectious organism, unspecified laterality, unspecified part of lung (Primary Dx); Primary hypertension; Other heart failure ([facility]); Permanent atrial fibrillation (CMS/HCC) 05/25/2024 Travel 05/11/[address] [address] Darlene Cherry MD No Show 05/10/[address] [address] Darlene Cherry MD Appointment Request 05/04/2024 10:40 AM EST Office Visit [facility] [address] [address] Bella Boone DO Multifocal pneumonia (Primary Dx); Other heart failure (CMS/[facility]); O2 dependent; Essential hypertension; Acute URI 05/04/2024 [facility]phone [facility] [address] [address] Faith You, KATHLEEN WIC triage 05/03/[address] [address] Darlene Cherry MD Nurse Triage 05/01/[address] [address] Darlene Cherry MD 04/26/2024 Patient Outreach [address] [address] Darlene Cherry MD Medicare Annual Wellness Visit Initial (AWV unscheduled) 04/24/2024 Patient Outreach [address] [address] Darlene Cherry MD Transition Of Care (Tcm) (HDF- scheduled and SDOH screening completed on 01/11/2024) 04/24/2024 Telephone [facility] [address] [place] [address] Darlene Cherry MD Hospital Follow-up 04/21/2024 Patient Outreach [facility] [address] [place] [address] Darlene Cherry MD Transition Of Care (Tcm) (HDF- Unscheduled LVM) 04/16/2024 Orders Only [facility] External Provider, [facility] from Last 3 Months Immunizations Name [...] Care Team (Late st Contact Info) Description 08/22/2024 9:00 AM EDT Office Visit [facility] [address] [place] [address] Darlene Cherry MD [address] [place] [address] Health Maintenance Due Date Last Done Comments [...] Associated Diagnosis Comments XR CHEST 2 VIEWS Routine 05/31/2024 1:13 PM EST XR CHEST 2 VIEWS STAT 05/04/2024 12:0 [...] Maintenance Results * XR Chest 2 Views (05/31/2024 1:13 PM EST) Only the most recent of3 resultswithin the time period is included. Anatomical Region Laterality Modality Chest Radiographic Ceh ging 05/31/2024 1:13 PM EST Narrative 05/31/2024 1:14 PM EST ? [facility] ?[address] ?[place] [address] ?XRay Report ? Signed ? Patient: Digris,Aly ?MR#: [id number] ?? 63 ? : 1955 ?Acct:[id number] ? Age/Sex: 68 / M ?ADM Date: 12/25 ? Loc: HO.XRAY ? Attending Dr: Bella Boone DO ? Ordering Physician: Prakash Bower MD ?? Date of Service: 05/31/24 ?? Procedure(s): XR chest 2V ?? Accession Number(s): [id number] ? cc: Prakash Bower MD; Darlene Cherry MD ? CLINICAL HISTORY: J18.9 - Pneumonia, unspecified organism ? 2 view chest x-ray ? Comparison: CR/SR - XR CHEST 2V - 05/04/24 12:19 EST ? Findings: ?? There is stable cardiomegaly. ?? There is prominence of the bronchovascular structures with bilateral ?? reticular opacities. Given the history a viral process is not excluded ?? although the findings could represent failure. ?? No acute bony abnormalities. ? Impression: ?? There is prominence of the bronchovascular structures with bilateral ?? reticular opacities. Given the history a viral process is not excluded ?? although the findings could represent failure. ? This document has been electronically signed by: Jamie Barragan MD on ?? 05/31/2024 13:13:00 ? Dictated By: ?Jamie Barragan MD ? Signed By: ?<Electronically signed by Jamie Barragan MD in OV> ? 02/12/25 1313 ? DD/ 12 ? TD/TT: 05/31/241312 ? Paper Colorer: ? Procedure Note Dougie Yost - 05/31/2024 [place] [address] XRay Report Signed Patient: Aly PaizMR#: [id number] 63 : 5Acct:[id number] Age/Sex: 68 / MADM Date: 05/31/24 Loc: [facility] Attending Dr: Bella Boone DO Ordering Physician: Prakash Bower MD Date of Service: 05/31/24 Procedure(s): XR chest 2V Accession Number(s): [id number] cc: Prakash Bower MD; Darlene Cherry MD CLINICAL HISTORY: J18.9 - Pneumonia, unspecified organism 2 view chest x-ray Comparison: CR/SR - XR CHEST 2V - 05/04/24 12:19 EST Findings: There is stable cardiomegaly. There is prominence of the bronchovascular structures with bilateral reticular opacities. Given the history a viral process is not excluded although the findings could represent failure. No acute bony abnormalities. Impression: There is prominence of the bronchovascular structures with bilateral reticular opacities. Given the history a viral process is not excluded although the findings could represent failure. This document has been electronically signed by: Jamie Barragan MD on 05/31/2024 13:13:00 Dictated By: Jamie Barragan MD Signed By: <Electronically signed by Jamie Barragan MD in OV> 05/31/24 1313 DD/ 1313 TD/TT: 05/31/24 1313 Paper Colorer: [facility] External Provider IMG XR PROCEDURES Final Result * Influenza B (ID NOW Rapid Molecular) (05/04/2024 11:01 AM EST) Influenza B Negative Negative, Indeterminate [facility] Swab 05/04/2024 11:0 1 AM EST Bella Boone DO POINT OF CARE TEST ENTER/ENE T ORDERABLES Final Result Performing Organization Address [facility] Co de Phone Number [facility] [address] [place] [phone] * Influenza A (ID NOW Rapid Molecular) (05/04/2024 11:01 AM EST) Influenza A Negative Negative, Indeterminate [facility] Swab 05/04/2024 11:0 1 AM EST Bella Boone DO POINT OF CARE TEST ENTER/ENE T ORDERABLES Final Result Performing Organization Address [facility] Co de Phone Number [facility] [address] [place] [phone] * POCT Rapid COVID Ag (05/04/2024 11:01 AM EST) Rapid COVID Ag Negative [facility] Swab 05/04/2024 11:0 1 AM EST us Bella Boone DO POINT OF CARE TEST ENTER/ENE T ORDERABLES Final Result Performing Organization Address City/[facility]/ZIP Co de Phone Number [facility] [address] [place] [phone] * (ABNORMAL) Urinalysis, Complete, with Reflex to Culture (04/16/2024 2:10 PM EST) Color Urine Yellow [facility] Appearance Urine Clear [facility] PH 6.0 5.0 - 9.0 [facility] Glucose Urine UA Negative Negative mg/dL [facility] Urine Blood Trace(A) Negative [facility] Specific [place] - Urine 1.015 1.005 - 1.025 [facility] Urine Protein 100 (2+)(A) Neg-Trace mg/dL [facility] Urine Ketones 15 Negative mg/dL [facility] Nitrite Urine Negative Negative [facility] Leukocyte Esterase Urine Negative Negative [facility] RBC Urine 0-2 0 - 2 /HPF [facility] Urine WBC 0-5 0 - 5 /HPF [facility] Urine Squamous Epithelial Cell 0-2 0 - 2 /HPF [facility] Urine Bacteria None Seen None Seen [facility] Hyaline Casts, Urine 0-2 0 - 2 /LPF [facility] 04/16/2024 2:10 PM EST 04/16/2024 2:12 PM EST Narrative [facility] - 04/16/2024 2:18 PM EST [id number], Clean Catch us Generic External Data Provider LAB URINE ORDERAB LES Final Result Performing Organization Address City/[facility]/ZIP Co de Phone Number [facility] [address] [place] [phone] * Lipid Panel, Standard (11/03/2022 11:14 AM EDT) Triglycerides 56 mg/dL [facility] Comment:Desirable Triglyceri de: less than 150 mg/dLBorderline High Triglyceride 150-199 mg/dLHigh Triglyceride: 200-499 mg/dLVery High Triglyceride: greater than or equal to 5OO mg/dL Cholesterol 122 mg/dL [facility] Comment:Desirable Cholestero l: less than 200 mg/dLBorderline High Cholesterol: 200-239 mg/dLHigh Cholesterol: greater than 239 mg/dL LDL Cholesterol Calculated 66 mg/dl [facility] Comment:Desirable LDL: less than 100 mg/dLNear Optimal/Above Optimal LDL: 110- 129 mg/dLBorderline High LDL: 130-159 mg/dLHigh LDL: 160-189 mg/dLVery High LDL: greater than or equal to 190 mg/dL HDL Cholesterol 45 mg/dL [facility] Comment:Desirable HDL: great er than 40 mg/dL Note: This HDL assay may give artificially low results in patients with liver disease. Blood Venous blood specimen / Unknown 11/03/2022 11:14 AM EDT 11/03/2022 1:32 PM EDT us Darlene Blas MD LAB BLOOD ORDERABLES Final Result [facility] [address] [place] [phone] from Last 3 Months or Most Recently Relevant to Health Maintenance [place] [address] [place] [address] STANDARD MEDICARE Care Teams Trimmer Tailer Relationship Specialty Start Date End Date Darlene Cherry MD [address] [place] [phone] PCP - General Family Medicine 12/29/17
--- OUTSIDE RECORDS SUMMARY | 2024-06-13 11:01 | XMS_ITS | Clinical Summary ---
Author Organization [facility] Address [address] [place] [phone] Phone Care Team Providers Care Wringer Operator Name Role Phone Darlene Cherry MD [...] by mouth 1 (one) time each day 01/07/20 21 Active Jantoven 5 MG tablet TAKE 1 TABLET BY MOUTH DAILY DIRECTED BY [facility]'S INDIVIDUALIZED DOSING INSTRUCTION. 01/27/20 21 Active apixaban (ELIQUIS) 5 MG tablet Take 1 tablet (5 mg total) by mouth in the morning and 1 tablet (5 mg total) in the evening. 180 tablet 2 11/15/19 24 2024 Active simvastatin (ZOCOR) 20 MG tabletIndicat ions:Hyperten anders Take 1 tablet (20 mg total) by mouth 1 (one) time each day 90 tablet 12/21/19 24 Active lisinopril (PRINIVIL,ZES TRIL) 30 MG tabletIndicat ions:Hyperten anders Take 1 tablet (30 mg total) by mouth 1 (one) time each day 06/01/19 25 Active lisinopril 20 MG tabletIndicat ions:Hyperten anders Take 1 tablet (20 mg total) by mouth 1 (one) time each day 90 tablet 3 11/15/19 24 2024 Discontinued Active Problems Problem Noted Date Diagnosed Date [...] S/p cardioversion 04/2009 Chronic anticoagulation with coumadin Encounters Date Type Department Care Team Description 06/01/2024 2:15 PM EST Office Visit [facility] [address] [place] [address] Petar Shafer MD Hypertension from Last 3 Months Immunizations Name Administration [...] Sign Reading Time Taken Comments Blood Pressure 128/78 06/01/2024 1:49 PM EST Pulse 62 06/01/2024 1:49 PM EST Temperature - - Respiratory Rate - - Oxygen Saturation 95% 06/01/2024 1:49 PM EST Inhaled Oxygen Concentration - - Weight 108 kg (237 lb) 06/01/2024 1:49 PM EST Height 162.6 cm (5' 4 ) 09/16/2023 1:13 PM EDT Body Mass Index 40.68 09/16/2023 1:13 PM EDT Plan of Treatment Upcoming Encounters Date Type Department Care Team (Late st Contact Info) Description 06/07/2025 1:00 PM EST Office Visit [facility] [address] [place] [phone] Petar Shafer MD [address] [facility] [address] [place] [address] Health Maintenance Due Date Last Done Comments [...] topic Insurance [address] [place] [address] MEDICARE [place]ICAID [place] [address] [place] [address] MED[place]ARE [place] Care Teams Wringer Operator Relationship Specialty Start Date End Date Darlene Cherry MD [address] [place] [phone] PCP - General 04/29/20
--- OUTSIDE RECORDS SUMMARY | 2024-06-13 11:01 | XMS_ITS | Encounter Summary ---
Author Organization [employer] Address [address] [facility] 7t [place] [address] Care Team Providers Care Cloth Finishing Range Tender Name Role Phone Darlene Cherry MD Primary Care Provide r Reason for Visit * Reason Comments Televisit Encounter Details Date Type Department Care Team ([facility] st Contact Info) Description 05/25/2024 1:15 PM EST Telemedicine [facility] [address] [place] [address] Darlene Cherry MD [address] [place] [address] Pneumonia due to infectious organism, unspecified laterality, [...] syndrome Osteoarthritis of knee Permanent atrial fibrillation ([facility]/HCC) Stasis dermatitis Venous stasis Venous stasis ulcer of left calf limited to breakdown of skin with varicose veins ([facility]) Class 3 severe obesity due to excess calories with serious comorbidity and body mass index (BMI) of45.0 to 49.9 in adult ([facility]) Colon cancer screening Acute right-sided low back pain without sciatica Lumbar sprain Acute midline low back pain without sciatica Unstable gait Bradycardia Other heart failure ([facility]) Pneumonia due to infectious organism Family History [...] Description 08/22/2024 9:00 AM EDT Office Visit [facility] [address] [place] [address] Darlene Cherry MD [address] [place] [address] documented as of this encounter Visit Diagnoses Diagnosis Pneumonia due to infectious organism, unspecified laterality, unspecified part of lung- Primary Primary hypertension Unspecified essential hypertension Other heart failure (CMS/HCC) Permanent atrial fibrillation (CMS/HCC) Atrial fibrillation documented in this encounter Additional Health Concerns Assessment Noted Time PHQ-9 Depression Total Score: 0 11/04/19 23 9:58 AM EDT documented as of this encounter Care Teams Cloth Finishing Range Tender Relationship Specialty Start Date End Date Darlene Cherry MD [address] [place] [address] PCP - General Family Medicine 12/29/17 documented as of this encounter
--- OUTSIDE RECORDS SUMMARY | 2024-06-13 11:01 | XMS_ITS | Encounter Summary ---
Author Organization [employer] Address [address] [facility] 7[address] [place] [address] Care Team Providers Care Cylinder Dyer Name Role Phone Darlene Cherry MD Primary Care Provide r Reason for Visit * Reason Onset Date Comments Appointment Request 05/10/2024 Encounter Details Date Type Department Care Team ([facility] st Contact Info) Description 05/10/2024 Telephone [facility] [address] [place], [place] [phone] Darlene Cherry MD [address] [place], [place] [phone] Appointment Request Social History Tobacco Use Types [...] 12:55 PM EST TC placed to patient [phone] in regards to below message. Patient did [...] because of the Weather. Contact pt at [phone] documented in this encounter Plan of Treatment Upcoming Encounters Date Type Department Care Team (Late st Contact Info) Description 08/22/2024 9:00 AM EDT Office Visit [facility] [address] [place] [address] Darlene Cherry MD [address] [place], [place] [phone] documented as of this encounter Visit Diagnoses Not on filedocumented in this encounter Additional Health Concerns Assessment Noted Time PHQ-9 Depression Total Score: 0 11/04/19 23 9:58 AM EDT documented as of this encounter Care Teams Cylinder Dyer Relationship Specialty Start Date End Date Darlene Cherry MD [address] [place] [address] PCP - General Family Medicine 12/29/17 documented as of this encounter
--- OUTSIDE RECORDS SUMMARY | 2024-06-13 11:01 | XMS_ITS | Encounter Summary ---
Author Organization [facility] Address [address] [place] [phone] Phone Care Team Providers Care Auto Roller Name Role Phone Darlene Cherry MD Primary Care Provide r Reason for Visit * Reason Comments Hypertension Encounter Details Date Type Department Care Team (Late st Contact Info) Description 06/01/2024 2:15 PM EST [facility] [address] [place] [phone] Petar Shafer MD [address] [phone] Hypertension Social History Tobacco Use Types Packs/Day Years [...] on file Sexual Orientation Not on file documented as of this encounter Last Filed Vital Signs Vital Sign Reading Time Taken Comments Blood Pressure 128/78 06/01/2024 1:49 PM EST Pulse 62 06/01/2024 1:49 PM EST Temperature - - Respiratory Rate - - Oxygen Saturation 95% 06/01/2024 1:49 PM EST Inhaled Oxygen Concentration - - Weight 108 kg (237 lb) 06/01/2024 1:49 PM EST Height - - Body Mass Index 40.68 09/16/2023 1:13 PM EDT documented in this encounter Progress Notes * Petar Shafer MD - 06/01/2024 2:15 PM EST [facility] Office Visit Patient Name: Aly Paiz, Male Date of : 1955, 68 y.o. Date: 06/01/2024 History of Present Illness Aly Paiz is a 68 y.o. male with pmh of afib on eliquis, ckd 2, gout, chichi, here for routine followup of hypertensive nephrosclerosis in a patient with longstanding history of hypertension- 2008, - History of atrial fibrillation for 15 years. - No gout attack for approximately 15 years. He stopped Losartan in July 2017 due to edema and says his edema improved. Today - Hospitalized with pneumonia in April - Started seeing concrete journeyman Dr. Max Bower two weeks ago; still has residual pneumonia. - Experienced weight loss due to pneumonia affecting appetite. - Blood pressure management issues; lisinopril increased from 20 mg to 30 mg in the hospital. The following portions of the patient's chart were reviewed in this encounter and updated as appropriate: Allergies Meds Past Medical History: Diagnosis Date Atrial fibrillation (HCC) Chronic kidney disease stage 2 Essential hypertension Gout H/O: kidney disease Left Kidney Cyst Hyperparathyroidism (HCC) Rheumatoid arthritis (HCC) Sleep apnea Review of Systems Constitutional: Negative for chills and fever. Respiratory: Negative for cough and shortness of breath. Cardiovascular: Negative for chest pain and leg swelling. Medication List Current Outpatient Medications Medication Sig Dispense Refill lisinopril (PRINIVIL,ZESTRIL) 30 MG tablet Take 1 tablet (30 mg total) by mouth 1 (one) time each day simvastatin (ZOCOR) 20 MG tablet Take 1 tablet (20 mg total) by mouth 1 (one) time each day 90 tablet 0 amLODIPine (NORVASC) 10 MG tablet Take 1 tablet by mouth 1 (one) time each day apixaban (ELIQUIS) 5 MG tablet Take 1 tablet (5 mg total) by mouth in the morning and 1 tablet (5 mg total) in the evening. 180 tablet 2 Calcium Carbonate-Vit D-Min (Caltrate 600+D Plus Minerals) 600-800 MG-UNIT chewable tablet Chew 1 tablet 2 (two) times a day carvedilol (COREG) 6.25 MG tablet Take 1 tablet by mouth 2 (two) times a day (Patient not taking: Reported on 09/16/2023) furosemide (LASIX) 40 MG tablet Take 1 tablet by mouth 1 (one) time each day Jantoven 5 MG tablet TAKE 1 TABLET BY MOUTH DAILY DIRECTED BY [facility]'S INDIVIDUALIZED DOSING INSTRUCTION. Vitamin D High Potency 25 MCG (1000 UT) capsule Take 1,000 Units by mouth 1 (one) time each day No current facility-administered medications for this visit. Allergy List No Known Allergies Physical Exam BP 128/78 Pulse 62 Wt 237 lb (108 kg) SpO2 95% BMI 40.68 kg/m?? Constitutional: He is oriented to person, place, and time. obese HEENT: Mouth/Throat: Oropharynx is clear and moist. Eyes: Conjunctivae and EOM are normal. Pupils are equal, round, and reactive to light. Cardiovascular: Normal rate. An irregularly irregular rhythm present. Chronic skin changes in both LE. Edema has improved Pulmonary/Chest: Breath sounds normal. Abdominal: Soft. Musculoskeletal: Normal range of motion. Neurological: He is alert and oriented to person, place, and time. Skin: Skin is warm. Labs Chemistry Lab Units 08/31/23 0000 03/02/23 0000 SODIUM 142 145 POTASSIUM 4.0 4.1 BUN mg/dL 11 13 CREATININE mg/dL 0.73 0.79 CHLORIDE 105.0 104.0 EGFRNAFR 60 60 HEMOGLOBIN 13.5 -- HEMATOCRIT 41.3 -- PLATELETS AUTO 10*3/UL 153 -- Bone Mineral Lab Units 08/31/23 0000 03/02/23 0000 CALCIUM mg/dL 9.7 9.2 Assessment & Plan 1. Hypertension 1. Hypertensive nephrosclerosis. 2. Obesity. 3. Mild chronic kidney disease stage II. 4. No significant proteinuria RECOMMENDATIONS: 1. BP reasonable control 2. Keep Lisinopril 30 mg, coreg 6.25mg bid, Amlodipine 10mg, discussed about simplifying the regimen- he is not interested in making changes. 3. In regard to his edema, has improved -on furosemide 40 mg 4. Low sodium diet .Avoidance of weight gain 5.PRA looks ok will not need spironolacotne 6. We discussed about wt loss injections of glp1- he is not interested No orders of the defined types were placed in this encounter. Return in about 1 year (around 06/01/2025). Petar Shafer MD documented in this encounter Plan of Treatment Upcoming Encounters Date Type Department Care Team (Late st Contact Info) Description 06/07/2025 1:00 PM EST Office Visit [facility] [address] [place] [phone] Petar Shafer MD [address] [facility] [address] [place] [phone] documented as of this encounter Visit Diagnoses Diagnosis Hypertension documented in this encounter Care Teams Auto Roller Relationship Specialty Start Date End Date Darlene Cherry MD [address] [place] [address] [address] [facility] [place] [phone] PCP - General 04/29/20 documented as of this encounter
--- OUTSIDE RECORDS SUMMARY | 2024-06-13 11:01 | XMS_ITS | Encounter Summary ---
Author Organization [employer] Address [address] [facility] 7t [place] [address] Care Team Providers Care Wet Room Worker Name Role Phone Darlene Cherry MD Primary Care Provide r Reason for Visit * Reason Onset Date Comments Nurse Triage 11/08/2023 Encounter Details Date Type Department Care Team ([facility] st Contact Info) Description 11/08/2023 Telephone [facility] MEDICINE [address] [place], [place] [phone] Darlene Cherry MD [address] [place], [place] [phone] Nurse Triage Social History Tobacco Use Types [...] Description 08/22/2024 9:00 AM EDT Office Visit [facility] MEDICINE [address] [place] [phone] Darlene Cherry MD [address] [place] [phone] documented as of this encounter Visit Diagnoses Not on filedocumented in this encounter Additional Health Concerns Assessment Noted Time PHQ-9 Depression Total Score: 0 11/04/19 23 9:58 AM EDT documented as of this encounter Care Teams Wet Room Worker Relationship Specialty Start Date End Date Darlene Cherry MD [address] [place] [phone] PCP - General Family Medicine 12/29/17 documented as of this encounter
--- OUTSIDE RECORDS SUMMARY | 2024-06-13 11:01 | XMS_ITS | Encounter Summary ---
Author Organization [employer] Address [address] [facility] [address] 7t [place] [address] Care Team Providers Care Cake Puncher Name Role Phone Darlene Cherry MD Primary Care Provide r Encounter Details Date Type Department Care Team ([facility] Contact Info) Description 05/31/2024 Orders Only [facility] External Provider, [facility] Social History Tobacco Use Types Packs/Day Years [...] Description 08/22/2024 9:00 AM EDT Office Visit [facility] MEDICINE [address] [facility] [place] [address] Darlene Cherry MD 230 [place] [address] documented as of this encounter Procedures Procedure Name Priority Date/Time Associated Diagnosis Comments XR CHEST 2 VIEWS Routine 05/31/2024 1:13 PM EST documented in this encounter Results * XR Chest 2 Views (05/31/2024 1:13 PM EST) Anatomical Region Laterality Modality Chest Radiographic Che ging 05/31/2024 1:13 PM EST Narrative 05/31/2024 1:14 PM EST ? [facility] ?[address] ?[place] [address] ?XRay Report ? Signed ? Patient: Digris,Aly ?MR#: [id number] ?? 63 ? : 1955 ?Acct:[id number] ? Age/Sex: 68 / M ?ADM Date: 05/31/24 ? Loc: HO.XRAY ? Attending Dr: Bella Boone DO ? Ordering Physician: Prakash Bower MD ?? Date of Service: 05/31/24 ?? Procedure(s): XR chest 2V ?? Accession Number(s): [id number] ? cc: Prakash Bower MD; Darlene Cherry [...] by Jamie Barragan MD in OV> ? 05/31/24 1313 ? DD/ 1313 ? TD/TT: 05/31/24 1313 ? Peace Officer: ? Procedure Note Priyank, Image - 05/31/2024 [place] [id number] XRay Report Signed Patient: Isaías Paiz#: [id number] 63 : 5Acct:[id number] Age/Sex: 68 / MADM Date: 05/31/24 Loc: [facility] Attending Dr: Bella Boone DO Ordering Physician: Prakash Bower MD Date of Service: 05/31/24 Procedure(s): XR chest 2V Accession Number(s): [id number] cc: Prakash Bower MD; Darlene Cherry MD [...] 05/31/24 1313 DD/ 1313 TD/TT: 05/31/24 1313 Peace Officer: [facility] External Provider IMG XR PROCEDURES Final Result documented in this encounter Visit Diagnoses Not on filedocumented in this encounter Additional Health Concerns Assessment Noted Time PHQ-9 Depression Total Score: 0 11/04/19 23 9:58 AM EDT documented as of this encounter Care Teams Cake Puncher Relationship Specialty Start Date End Date Darlene Cherry MD [address] [place] [phone] PCP - General Family Medicine 12/29/17 documented as of this encounter
--- OUTSIDE RECORDS SUMMARY | 2024-06-13 11:01 | XMS_ITS | Encounter Summary ---
Author Organization [employer] Address [address] [facility] [address] 7t [place] [address] Care Team Providers Care Proced Tech Name Role Phone Darlene Cherry MD Primary [...] Description 08/22/2024 9:00 AM EDT Office Visit [facility] MEDICINE [address] [place] [address] Darlene Cherry MD [address] [place] [address] documented as of this encounter Visit Diagnoses Not on filedocumented in this encounter Additional Health Concerns Assessment Noted Time PHQ-9 Depression Total Score: 0 11/04/19 23 9:58 AM EDT documented as of this encounter Care Teams Proced Tech Relationship Specialty Start Date End Date Darlene Cherry MD [address] [place] [phone] PCP - General Family Medicine 12/29/17 documented as of this encounter
--- OUTSIDE RECORDS SUMMARY | 2024-06-13 11:01 | XMS_ITS | Encounter Summary ---
Author Organization [employer] Address [address] [facility] 7t [place] [address] Care Team Providers Care Windows Vmware Engineer Name Role Phone Darlene Cherry MD Primary Care Provide r Reason for Visit * Reason Onset Date Comments Prior Authorization 10/20/2023 Encounter Details Date Type Department Care Team ([facility] st Contact Info) Description 10/20/2023 Telephone [facility] MEDICINE [address] [place] [phone] Darlene Cherry MD 230 [place] [address] Prior Authorization Social History Tobacco Use Types [...] 10/20/2023 10:12 AM EDT Tc from pharmacy [facility] is needed for lidocaine (Lidoderm) 5 % patch documented in this encounter Plan of Treatment Upcoming Encounters Date Type Department Care Team (Late st Contact Info) Description 08/22/2024 9:00 AM EDT Office Visit [facility] MEDICINE [address] [place] [address] Darlene Cherry MD 230 [place] [address] documented as of this encounter Visit Diagnoses Not on filedocumented in this encounter Additional Health Concerns Assessment Noted Time PHQ-9 Depression Total Score: 0 11/04/19 23 9:58 AM EDT documented as of this encounter Care Teams Windows Vmware Engineer Relationship Specialty Start Date End Date Darleen Cherry MD 230 [place], [place] [phone] PCP - General Family Medicine 12/29/17 documented as of this encounter
--- OUTSIDE RECORDS SUMMARY | 2024-06-13 11:01 | XMS_ITS | Encounter Summary ---
Author Organization [employer] Address [address] [facility] [address] [place] [address] Care Team Providers Care Shipping Specialist Name Role Phone Darlene Cherry MD Primary Care Provide r Reason for Visit * Reason Onset Date Comments CXR 05/29/2024 Encounter Details Date Type Department Care Team ([facility] st Contact Info) Description 05/29/2024 Telephone [facility] MEDICINE [address] [place] [address] Ambreen Obrien RN 230 [place] [address] CXR Social History Tobacco Use Types Packs/Day [...] 10:05 AM EST TC placed to patient [phone] to inform patient to repeat CXR to ensure resolution of PNA. Patient reports he needs to go to [facility] on Wednesday for a specialist [...] 9:00 AM EDT Office Visit [facility] MEDICINE [address] [place] [address] Darlene Cherry MD 230 [place] [address] Scheduled Orders Name Type Priority Associated Diagnoses Orde r Schedule XR Chest 2 Views Imaging Routine Multifocal pneumonia Expected: 05/29/2024, Expires: 05/29/2025 documented as of this encounter Visit Diagnoses Diagnosis Multifocal pneumonia documented in this encounter Additional Health Concerns Assessment Noted Time PHQ-9 Depression Total Score: 0 11/04/19 23 9:58 AM EDT documented as of this encounter Care Teams Shipping Specialist Relationship Specialty Start Date End Date Darlene Cherry MD 230 [place] [address] PCP - General Family Medicine 12/29/17 documented as of this encounter
== END 2024-06-13 09:44 | disposition home or self-care (01) ==
LOC: HO.RESP 09:43
PROVIDERS: PCP Internal Medicine; Visit Provider Family Medicine
DX: I50.89 Other heart failure (principal); Z99.81 Dependence on supplemental oxygen
CPT/HCPCS: 93306; 94010; 94640; 94727; 94729

== ENCOUNTER → 2024-06-13 09:54 | Outpatient (BNV) | payer MEDICARE, MEDICAID, SELFPAY | PROVIDERS: PCP Internal Medicine; Visit Provider Internal Medicine Pulmonary Disease | DX: R09.02 Hypoxemia (principal); J98.4 Other disorders of lung | CPT/HCPCS: 94060; 94727; 94729 ==

== ENCOUNTER → 2024-06-13 10:38 | Outpatient (BNV) | payer MEDICARE, MEDICAID, SELFPAY | PROVIDERS: PCP Internal Medicine; Visit Provider Internal Medicine | DX: I27.20 Pulmonary hypertension, unspecified (principal); I42.2 Other hypertrophic cardiomyopathy; I36.1 Nonrheumatic tricuspid (valve) insufficiency | CPT/HCPCS: 93306 ==

== ENCOUNTER 2024-06-21 10:27 | Outpatient (AMB) | payer MEDICARE, MEDICAID, SELFPAY ==
[2024-06-21 10:44] VITALS: BP 140/68; PULSE 54; O2SAT 96; BMI 43.1
--- NOTE | 2024-06-21 10:44 | MHC.OFFVIS ---
Vital Signs 06/21/24 10:44 Height 5 ft 3 in Weight 243 lb 9.773 oz BMI 43.1 BP 140/68 H Blood Pressure Location Lt brachial Position Sitting Pulse 54 Pulse Source Pulse Oximeter Pulse Oximetry (%) 96 Oxygen Delivery Method Room Air Intake Visit Reasons: o2 Dependent/Pneumonia Intake Note: pt is here for follow up and states he is feeling pretty good today, sleeping okay, using oxygen at night. Home Service Advisor Required: No Allergies No Known Allergies [No Known Allergies*] Allergy (Verified 06/21/24 11:08) Medication List - Last Reconciled 06/21/24 by Prakash Bower MD acetaminophen ER 650 mg PO Q8H PRN albuterol sulfate 90 mcg/actuation 2 puffs inhalation Q4-6H PRN amlodipine 10 mg PO DAILY apixaban (Eliquis) 5 mg PO BID carvedilol 6.25 mg PO BID cholecalciferol (vitamin D3) 25 mcg PO DAILY furosemide 40 mg PO DAILY guaifenesin ER (Mucinex) 600 mg PO BEDTIME lisinopril 30 mg PO DAILY simvastatin 20 mg PO BEDTIME HPI HPI o2 Dependent/Pneumonia: Details: This 68 years old gentleman is here after 4 weeks for follow-up. He claims that his breathing status is fairly stable, he has very little cough wheezing or shortness of breath at rest. He does not walk much and uses a cane. He is trying to control his dietary. Intake as much as he can Still he has put on a few lb of weight and that is dependent on fluid retention. Using O2 2 L/minute for his nocturnal hypoxemia. He does have features of obstructive sleep apnea but he that is not and can not use CPAP. He uses albuterol once in a while and has not been much during the past 1 month. [facility] Medical History (Updated 06/21/24 @ 11:17 by Prakash Bower MD) Nocturnal hypoxemia Hypoxemia Restrictive lung disease MICKEY (obstructive sleep apnea) Morbid obesity Social History Household Members: Family Household Members Other:: Sister Gillian Housing: Apartment Do you presently have visiting nurse or other home services: No Patient Tobacco Use Status: Former Tobacco user service: No Review of Systems Const All systems reviewed & are unremarkable except as noted in HPI and below Eyes Reports no additional complaints ENT Reports no additional complaints Card Reports irregular heart rhythm, Reports leg edema and Reports dyspnea on exertion Resp Reports as per HPI and Reports dyspnea on exertion GI Reports no additional complaints Reports no additional complaints Musc Reports abnormal gait (HAS WEAKNESS OF LOWER EXTREMITIES AND DIFFICULTY IN AMBULATING.) and Reports muscle weakness (GENERAL) Skin/Breast Reports system reviewed and no additional complaints, except as documented Neuro Reports abnormal gait (HAS WEAKNESS OF LOWER EXTREMITIES AND DIFFICULTY IN AMBULATING.) Psych Reports no additional complaints Endo Reports no additional complaints Physical Exam Vital Signs: Last Vital Signs Pulse 54 06/21/24 10:44 BP 140/68 H 06/21/24 10:44 Pulse Ox 96 06/21/24 10:44 Oxygen Delivery Method Room Air 06/21/24 10:44 BMI result Body Mass Index 43.1 HE IS GROSSLY OBESE WITH LARGE NECK, Const General: comfortable, no acute distress, alert and awake Orientation/consciousness: patient oriented x3 HEENT Head: Yes normal to inspection General nose exam: No nasal polyps present and No nasal discharge present Face and sinus: Yes sinuses nontender Mouth: oropharynx abnormals (NARROW AND CROWDED MALLAMPATI CLASS 3) Throat: Yes posterior oropharynx normal Eyes General: appearance normal, both eyes and all related structures Neck Neck: Yes normal visual inspection, Yes no lymphadenopathy, Yes trachea midline, Yes no JVD and Yes other (NECK CIRCUMFERENCE 18 IN) Thyroid: Thyroid normal Chest Chest palpation & inspection: normal inspection of the chest, normal palpation of entire chest wall and no tenderness Resp Other: PERCUSSION NOTE IS DIFFICULT BECAUSE OF HIS GROSS OBESITY BREATH SOUNDS ARE DIMINISHED OVER THE BASILAR AREAS. INSPIRATORY CREPITATIONS OVER THE LEFT LOWER LOBE, POSTERIORLY AND ALSO OVER THE RIGHT BASE. NO WHEEZES ARE HEARD. Cardio Palpation: normal PMI Rate: regular rate Rhythm: regular rhythm Heart sounds: no gallops and no murmurs GI Palpation (GI): Soft to palpation, nontender, No hepatosplenomegaly present and no masses Auscultation: normal bowel sounds Back/Spine/Pelvis Thoracic/Lumbar Spine: thoracic and lumbar spine normal to inspection and thoraco-lumbar ROM limited Skin General skin exam: no rashes or lesions noted Neuro General: patient oriented x3, No gait normal (PATIENT NON AMBULATORY WAS USING WHEELCHAIR) and no focal motor deficits Cranial nerves: Yes CN's II-XII intact bilaterally Extrem General: Yes normal to inspection, Yes no calf tenderness and Yes venous stasis dermatitis (HE HAS SKIN CHANGES OF CHRONIC STASIS DERMATITIS, BUT THERE IS NO PITTING ) Psych Appearance: grossly normal and well kempt Speech and movement: Normal speech and movement present Results Reviewed Results Reviewed: PULMONARY FUNCTION TEST SHOWS MODERATELY SEVERE RESTRICTIVE PULMONARY DISORDER. NO SIGNIFICANT OBSTRUCTIVE DISORDER. REPEAT CHEST X-RAY SHOWED CARDIOMEGALY WITH POOR EXPANSION, SOME CROWDING OF THE BRONCHOVASCULAR MARKINGS IN THE LOWER LOBES. BUT NO DEFINITE CONSOLIDATION WAS NOTED Assessment & Plan Assessment & Plan (1) Morbid obesity: Comment: PATIENT IS MORBIDLY OBESE, HE SAYS HE HAS ACTUALLY LOST SOME WEIGHT. HIS WEIGHT FLUCTUATES AND THAT DEPENDS UPON HOW MUCH FLUID HE RETAINS. HE IS ON LASIX. 40 MG DAILY HE TRIES TO WATCH HIS DIET BUT MAINLY TO RESTRICT THE SALT INTAKE. HE IS NOT ABLE TO DO MUCH EXERCISE. Code(s): E66.01 - Morbid (severe) obesity due to excess calories Category: Medical Plan: WE DISCUSSED WITH HIM ABOUT THE WEIGHT ISSUE AND AGAIN ENCOURAGED HIM TO CUT DOWN THE INTAKE OF CARBOHYDRATES. HE CAN NOT DO MUCH EXERCISE (2) MICKEY (obstructive sleep apnea): Comment: HE DOES HAVE HISTORY OF OBSTRUCTIVE SLEEP APNEA AND WAS STARTED ON CPAP THERAPY BUT HE COULD NOT USE IT. WHILE IN THE HOSPITAL HE WAS NOTED TO HAVE NOCTURNAL HYPOXEMIA AND WAS SENT HOME WITH O2 2 L/MINUTE AT NIGHT. Code(s): G47.33 - Obstructive sleep apnea (adult) (pediatric) Category: Medical Plan: PATIENT NOT ABLE TO USE CPAP, HE WOULD NOT CONSIDER UNDERGOING ANY ADDITIONAL SLEEP STUDY. HE IS WILLING TO AND IS USING O2 2 L/MINUTE AT NIGHT (3) Nocturnal hypoxemia: Comment: HE HAS NOCTURNAL HYPOXEMIA RESULT OF UNTREATED SLEEP APNEA. Code(s): G47.34 - Idiopathic sleep related nonobstructive alveolar hypoventilation Category: Medical Plan: ADVISED TO KEEP ON USING O2 2 L/MINUTE AT NIGHT (4) Restrictive lung disease: Comment: PATIENT IS EXPECTED TO HAVE MODERATELY SEVERE RESTRICTIVE PULMONARY DISORDER, SECONDARY TO HIS OBESITY, AND CONGESTIVE HEART FAILURE. Code(s): J98.4 - Other disorders of lung Category: Medical Plan: HE IS INSTRUCTED TO DO DEEP BREATHING EXERCISES EVERY 2 HOURS WHILE AWAKE. HE DOES HAVE INCENTIVE SPIROMETRY DEVICE AT HOME. Coding Level of Care Code Est Pt Level 3 (66061) Diagnoses Morbid obesity E66.01 MICKEY (obstructive sleep apnea) G47.33 Nocturnal hypoxemia G47.34 Restrictive lung disease J98.4
--- OUTSIDE RECORDS SUMMARY | 2024-06-21 12:19 | XMS_ITS | Encounter Summary ---
Author Organization [employer] Address [address] [facility] [address] 7[address] [place] [address] Care Team Providers Care Fleet Technician Name Role Phone Darlene Cherry MD Primary Care Provide r Reason for Visit * Reason Onset Date Comments CXR 05/29/2024 Encounter Details Date Type Department Care Team ([facility] st Contact Info) Description 05/29/2024 Telephone [facility] MEDICINE [address] [place] [address] Ambreen Obrien RN [address] [place] [address] CXR Social History Tobacco Use Types Packs/Day [...] 10:05 AM EST TC placed to patient [phone] to inform patient to repeat CXR to ensure resolution of PNA. Patient reports he needs to go to [facility] on Wednesday for a specialist appointment. Patient [...] Description 08/22/2024 9:00 AM EDT Office Visit [facility] MEDICINE [address] [place] [address] Darlene Cherry MD [address] [place] [address] Scheduled Orders Name Type Priority Associated Diagnoses Orde r Schedule XR Chest 2 Views Imaging Routine Multifocal pneumonia Expected: 05/29/2024, Expires: 05/29/2025 documented as of this encounter Visit Diagnoses Diagnosis Multifocal pneumonia documented in this encounter Additional Health Concerns Assessment Noted Time PHQ-9 Depression Total Score: 0 11/04/19 23 9:58 AM EDT documented as of this encounter Care Teams Fleet Technician Relationship Specialty Start Date End Date Darlene Cherry MD [address] [place] [address] PCP - General Family Medicine 12/29/17 documented as of this encounter
--- OUTSIDE RECORDS SUMMARY | 2024-06-21 12:19 | XMS_ITS | Clinical Summary ---
Author Organization [facility] Address [address] [place] [address] Phone Care Team Providers Care Parking Lot Supervisor Name Role Phone Darlene Cherry MD [...] Visit [facility] [address] [place] [address] Petar Shafer [...] Visit [facility] [address] [place] [phone] Petar Shafer MD [address] [facility] [address] [place] [address] Health Maintenance Due Date Last Done Comments [...] topic Insurance [address] [place] [address] MEDICARE MEDICAID [place] [address] [place] [address] [place]ARE [place]ICA[place] Care Teams Parking Lot Supervisor Relationship Specialty Start Date End Date Darlene Cherry MD [address] [place] [phone] PCP - General 04/29/20
--- OUTSIDE RECORDS SUMMARY | 2024-06-21 12:19 | XMS_ITS | Encounter Summary ---
Author Organization [employer] Address [address] [facility] 7t [place] [address] Care Team Providers Care Residential Service Technician Name Role Phone Darlene Cherry MD Primary Care Provide r Reason for Visit * Reason Comments Televisit Encounter Details Date Type Department Care Team ([facility] st Contact Info) Description 05/25/2024 1:15 PM EST Telemedicine [facility] MEDICINE [address] [place] [address] Darlene Cherry MD [address] [place] [address] Pneumonia due to infectious organism, unspecified laterality, [...] syndrome Osteoarthritis of knee Permanent atrial fibrillation ([facility]/HCC) Stasis dermatitis Venous stasis Venous stasis ulcer of left calf limited to breakdown of skin with varicose veins ([facility]) Class 3 severe obesity due to excess calories with serious comorbidity and body mass index (BMI) of45.0 to 49.9 in adult ([facility]) Colon cancer screening Acute right-sided low back pain without sciatica Lumbar sprain Acute midline low back pain without sciatica Unstable gait Bradycardia Other heart failure ([facility]) Pneumonia due to infectious organism [...] Description 08/22/2024 9:00 AM EDT Office Visit [facility] MEDICINE [address] [place] [address] Darlene Cherry MD [address] [place] [address] documented as of this encounter Visit Diagnoses Diagnosis Pneumonia due to infectious organism, unspecified laterality, unspecified part of lung- Primary Primary hypertension Unspecified essential hypertension Other heart failure (CMS/HCC) Permanent atrial fibrillation (CMS/HCC) Atrial fibrillation documented in this encounter Additional Health Concerns Assessment Noted Time PHQ-9 Depression Total Score: 0 11/04/19 23 9:58 AM EDT documented as of this encounter Care Teams Residential Service Technician Relationship Specialty Start Date End Date Darlene Cherry MD [address] [place] [address] PCP - General Family Medicine 12/29/17 documented as of this encounter
--- OUTSIDE RECORDS SUMMARY | 2024-06-21 12:19 | XMS_ITS | Clinical Summary ---
Author Organization [employer] Address [address] [place] [address] Care Team Providers Care Form Coverer Name Role Phone Darlene Cherry MD Primary [...] split. 40 tablet 1 5 06/03/19 25 Active Problems Problem Noted Date Diagnosed [...] Department Care Team Description 05/31/2024 Orders Only [facility] External Provider, [facility] 05/29/2024 Telephone [facility] [address] [place] [address] Ambreen Obrien, RN CXR 05/25/2024 1:15 PM EST Telemedicine [facility] [address] [place] [address] Darlene Cherry MD Pneumonia due to infectious organism, unspecified laterality, unspecified part of lung (Primary Dx); Primary hypertension; Other heart failure (CMS/HCC); Permanent atrial fibrillation (CMS/HCC) 05/25/2024 Travel 05/11/[address] [address] Darlene Cherry MD No Show 05/10/[address] [address] Darlene Cherry MD Appointment Request 05/04/2024 10:40 AM EST Office Visit [facility] [address] [place] [address] Bella Boone DO Multifocal pneumonia (Primary Dx); Other heart failure (CMS/HCC); O2 dependent; Essential hypertension; Acute URI 05/04/2024 Telephone [facility] [address] [place] [phone] Faith You, KATHLEEN WIC triage 05/03/[address] [address] Darlene Cherry MD Nurse Triage 05/01/[address] [address] Darlene Cherry MD 04/26/2024 Patient Outreach [address] [address] Darlene Cherry MD Medicare Annual Wellness Visit Initial (AWV unscheduled) 04/24/2024 Patient Outreach [address] [address] Darlene Cherry MD Transition Of Care (Tcm) (HDF- scheduled and SDOH screening completed on 01/11/2024) 04/24/[address] [address] Darlene Cherry MD Hospital Follow-up 04/21/2024 Patient Outreach [facility] [address] [place] [address] Darlene Cherry MD Transition Of Care (Tcm) (HDF- Unscheduled LVM) 04/16/2024 Orders Only [facility] External Provider, [facility] from Last 3 Months Immunizations Name Administration [...] Description 08/22/2024 9:00 AM EDT Office Visit [facility] [address] [place] [address] Darlene Cherry MD [address] [place], [place] [phone] Health Maintenance Due Date Last Done Comments [...] EST Narrative 05/31/2024 1:14 PM EST ? [facility] ?[address] ?[place] [address] ?XRay Report ? Signed ? Patient: Digris,Aly ?MR#: [id number] ?? 63 ? : 1955 ?Acct:[id number] ? Age/Sex: 68 / M ?ADM Date: 02/12/25 ? Loc: HO.XRAY ? Attending Dr: Bella Boone DO ? Ordering Physician: Prakash Bower MD ?? Date of Service: 05/31/24 ?? Procedure(s): XR chest 2V ?? Accession Number(s): [id number] ? cc: Prakash Bower MD; Darlene Cherry [...] in OV> ? 05/31/24 1313 ? DD/ ? TD/TT: 05/31/243 ? Foreign Banknote Teller Trader: ? Procedure Note Dougie Yost - 05/31/[address] [address] XRay Report Signed Patient: Isaías Paiz#: [id number] 63 : 5Acct:[id number] Age/Sex: 68 / MADM Date: 05/31/24 Loc: STEPHANIE Attending Dr: Bella Boone DO Ordering Physician: Prakash Bower MD Date of Service: 05/31/24 Procedure(s): XR chest 2V Accession Number(s): [id number] cc: Prakash Bower MD; Darlene Cherry MD [...] 05/31/24 1313 DD/ 1313 TD/TT: 05/31/24 1313 Foreign Banknote Teller Trader: Result [facility] External Provider IMG XR PROCEDURES Final Result * Influenza B (ID NOW Rapid Molecular) (05/04/2024 11:01 AM EST) [facility] Influenza B Negative Negative, Indeterminate [facility] Swab 05/04/2024 11:0 1 AM EST Result [facility] Bella Boone DO POINT OF CARE TEST ENTER/ENE T ORDERABLES Final Result Performing Organization Address [facility]/ZIP Co de Phone Number [facility] [address] [place] [phone] * Influenza A (ID NOW Rapid Molecular) (05/04/2024 11:01 AM EST) [facility] Influenza A Negative Negative, Indeterminate [facility] Swab 05/04/2024 11:0 1 AM EST Result [facility] Bella Boone DO POINT OF CARE TEST ENTER/ENE T ORDERABLES Final Result Performing Organization Address [facility] Co de Phone Number [facility] [address] [place] [phone] * POCT Rapid COVID Ag (05/04/2024 11:01 AM EST) Pathologist [facility] Rapid COVID Ag Negative [facility] Swab 05/04/2024 11:0 1 AM EST Result [facility] Bella Boone DO POINT OF CARE TEST ENTER/ENE T ORDERABLES Final Result Performing Organization Address City/[facility]/ZIP Co de Phone Number [facility] [address] [place] [address] [phone] * (ABNORMAL) Urinalysis, Complete, with Reflex to Culture (04/16/2024 2:10 PM EST) Color Urine Yellow [facility] Appearance Urine Clear [facility] PH 6.0 5.0 - 9.0 [facility] Glucose Urine UA Negative Negative mg/dL [facility] Urine Blood Trace(A) Negative [facility] Specific Gray - Urine 1.015 1.005 - 1.025 [facility] Urine Protein 100 (2+)(A) Neg-Trace mg/dL [facility] Urine Ketones 15 Negative mg/dL [facility] Nitrite Urine Negative Negative [facility] Leukocyte Esterase Urine Negative Negative [facility] RBC Urine 0-2 0 - 2 /HPF [facility] Urine WBC 0-5 0 - 5 /HPF [facility] Urine Squamous Epithelial Cell 0-2 0 - 2 /HPF [facility] Urine Bacteria None Seen None Seen [facility] Hyaline Casts, Urine 0-2 0 - 2 /LPF [facility] 04/16/2024 2:10 PM EST 04/16/2024 2:12 PM EST Narrative [facility] - 04/16/2024 2:18 PM EST [id number], Clean Catch us Generic External Data Provider LAB URINE ORDERAB LES Final Result Performing Organization Address [facility]/ZIP Co de Phone Number [facility] [address] [place] [address] [phone] * Lipid Panel, Standard (11/03/2022 11:14 AM EDT) Triglycerides 56 mg/dL [facility] Comment:Desirable Triglyceri de: less than 150 mg/dLBorderline High Triglyceride 150-199 mg/dLHigh Triglyceride: 200-499 mg/dLVery High Triglyceride: greater than or equal to 5OO mg/dL Cholesterol 122 mg/dL [facility] Comment:Desirable Cholestero l: less than 200 mg/dLBorderline High Cholesterol: 200-239 mg/dLHigh Cholesterol: greater than 239 mg/dL LDL Cholesterol Calculated 66 mg/dl [facility] Comment:Desirable LDL: less than 100 mg/dLNear Optimal/Above Optimal LDL: 110- 129 mg/dLBorderline High LDL: 130-159 mg/dLHigh LDL: 160-189 mg/dLVery High LDL: greater than or equal to 190 mg/dL HDL Cholesterol 45 mg/dL [facility] Comment:Desirable HDL: great er than 40 mg/dL Note: This HDL assay may give artificially low results in patients with liver disease. Blood Venous blood specimen / Unknown 11/03/2022 11:14 AM EDT 11/03/2022 1:32 PM EDT Darlene Blas MD LAB BLOOD ORDERABLES Final Result [facility] [address] [place] [phone] from Last 3 Months or Most Recently Relevant to Health Maintenance Insurance [facility] STANDARD [place] [phone] Care Teams Form Coverer Relationship Specialty Start Date End Date Darlene Cherry MD [address] [place] [phone] PCP - General Family Medicine 12/29/17
--- OUTSIDE RECORDS SUMMARY | 2024-06-21 12:19 | XMS_ITS | Encounter Summary ---
Author Organization [employer] Address [address] [place] [address] Care Team Providers Care Computer Technician Name Role Phone Darlene Cherry MD [...] Description 08/22/2024 9:00 AM EDT Office Visit [facility] [address] [place] [address] Darlene Cherry MD [address] [place] [address] documented as of this encounter Visit Diagnoses Not on filedocumented in this encounter Additional Health Concerns Assessment Noted Time PHQ-9 Depression Total Score: 0 11/04/19 23 9:58 AM EDT documented as of this encounter Care Teams Computer Technician Relationship Specialty Start Date End Date Darlene Cherry MD [address] [place] [phone] PCP - General Family Medicine 12/29/17 documented as of this encounter
--- OUTSIDE RECORDS SUMMARY | 2024-06-21 12:19 | XMS_ITS | Encounter Summary ---
Author Organization [employer] Address [address] [facility] 7t [place] [address] Care Team Providers Care Manager Managed Care Name Role Phone Darlene Cherry MD Primary Care Provide r Reason for Visit * Reason Onset Date Comments Appointment Request 05/10/2024 Encounter Details Date Type Department Care Team ([facility] st Contact Info) Description 05/10/2024 Telephone [facility] [address] [place], [place] [phone] Darlene Cherry MD [address] [place], [place] [phone] Appointment Request Social History Tobacco Use Types [...] 12:55 PM EST TC placed to patient [phone] in regards to below message. Patient did [...] because of the Weather. Contact pt at [phone] documented in this encounter Plan of Treatment Upcoming Encounters Date Type Department Care Team (Late st Contact Info) Description 08/22/2024 9:00 AM EDT Office Visit [facility] [address] [place] [address] Darlene Cherry MD [address] [place], [place] [phone] documented as of this encounter Visit Diagnoses Not on filedocumented in this encounter Additional Health Concerns Assessment Noted Time PHQ-9 Depression Total Score: 0 11/04/19 23 9:58 AM EDT documented as of this encounter Care Teams Manager Managed Care Relationship Specialty Start Date End Date Darlene Cherry MD [address] [place] [address] PCP - General Family Medicine 12/29/17 documented as of this encounter
--- OUTSIDE RECORDS SUMMARY | 2024-06-21 12:19 | XMS_ITS | Encounter Summary ---
Author Organization [employer] Address [address] [facility] 7t [place] [address] Care Team Providers Care Dental Laboratory Technology Teacher Name Role Phone Darlene Cherry MD Primary Care Provide r Reason for Visit * Reason Onset Date Comments Nurse Triage 11/08/2023 Encounter Details Date Type Department Care Team ([facility] st Contact Info) Description 11/08/2023 Telephone [facility] [address] [place], [place] [phone] Darlene Cherry MD [address] [place], [place] [phone] Nurse Triage Social History Tobacco Use Types [...] Description 08/22/2024 9:00 AM EDT Office Visit [facility] [address] [place] [address] Darlene Cherry MD [address] [place] [phone] documented as of this encounter Visit Diagnoses Not on filedocumented in this encounter Additional Health Concerns Assessment Noted Time PHQ-9 Depression Total Score: 0 11/04/19 23 9:58 AM EDT documented as of this encounter Care Teams Dental Laboratory Technology Teacher Relationship Specialty Start Date End Date Darlene Cherry MD [address] [place] [phone] PCP - General Family Medicine 12/29/17 documented as of this encounter
--- OUTSIDE RECORDS SUMMARY | 2024-06-21 12:19 | XMS_ITS | Encounter Summary ---
Author Organization [facility] Address [address] [place] [phone] Phone Care Team Providers Care Power Line Lineman Name Role Phone Darlene Cherry MD Primary Care Provide r Reason for Visit * Reason Comments Hypertension Encounter Details Date Type Department Care Team (Late st Contact Info) Description 06/01/2024 2:15 PM EST [facility] Visit [facility] [address] VASQUEZ Juan C [place] [phone] Petar Shafer MD [address] [phone] Hypertension Social History Tobacco Use [...] PM EST [facility] Office Visit Patient Name: Aly Paiz, Male [...] with pneumonia in April - Started seeing wall washer Dr. Max Bower two weeks ago; still [...] Visit [facility] [address] [place] [id number] Petar Shafer MD [address] [facility] [address] [place] [phone] documented as of this encounter Visit Diagnoses Diagnosis Hypertension documented in this encounter Care Teams Power Line Lineman Relationship Specialty Start Date End Date Darlene Cherry MD [address] [place] [address] [address] [place] [phone] PCP - General 04/29/20 documented as of this encounter
--- OUTSIDE RECORDS SUMMARY | 2024-06-21 12:19 | XMS_ITS | Encounter Summary ---
Author Organization [employer] Address [address] [facility] 7t [place] [address] Care Team Providers Care Professor Of Nursing Name Role Phone Darlene Cherry MD Primary Care Provide r Reason for Visit * Reason Onset Date Comments Prior Authorization 10/20/2023 Encounter Details Date Type Department Care Team ([facility] st Contact Info) Description 10/20/2023 Telephone [facility] [address] [place] [phone] Darlene Cherry MD [address] [place] [address] Prior Authorization Social History Tobacco Use Types [...] 10/20/2023 10:12 AM EDT Tc from [facility] is needed for lidocaine (Lidoderm) 5 % patch documented in this encounter Plan of Treatment Upcoming Encounters Date Type Department Care Team (Late st Contact Info) Description 08/22/2024 9:00 AM EDT Office Visit [facility] [address] [place] [address] Darlene Cherry MD [address] [place] [address] documented as of this encounter Visit Diagnoses Not on filedocumented in this encounter Additional Health Concerns Assessment Noted Time PHQ-9 Depression Total Score: 0 11/04/19 23 9:58 AM EDT documented as of this encounter Care Teams Professor Of Nursing Relationship Specialty Start Date End Date Darlene Cherry MD [address] [place], [place] [phone] PCP - General Family Medicine 12/29/17 documented as of this encounter
--- OUTSIDE RECORDS SUMMARY | 2024-06-21 12:19 | XMS_ITS | Encounter Summary ---
Author Organization [employer] Address [address] 7[address] [place] [address] Care Team Providers Care Earrings Fabricator Name Role Phone Darlene Cherry MD Primary Care Provide r Encounter Details Date Type Department Care Team ([facility] Contact Info) Description 05/31/2024 Orders Only [facility] External Provider, [facility] Social History Tobacco Use Types Packs/Day Years [...] Description 08/22/2024 9:00 AM EDT Office Visit [facility] [address] [place] [address] Darlene Cherry MD [address] [place] [address] documented as of this encounter Procedures Procedure Name Priority Date/Time Associated Diagnosis Comments XR CHEST 2 VIEWS Routine 05/31/2024 1:13 PM EST documented in this encounter Results * XR Chest 2 Views (05/31/2024 1:13 PM EST) Anatomical Region Laterality Modality Chest Radiographic Che ging 05/31/2024 1:13 PM EST Narrative 05/31/2024 1:14 PM EST ? [facility] ?[address] ?[place] [address] ?XRay Report ? Signed ? Patient: Digris,Aly ?MR#: [id number] ?? 63 ? : 1955 ?Acct:[id number] ? Age/Sex: 68 / M ?ADM Date: 05/31/24 ? Loc: HO.XRAY ? Attending Dr: Bella Boone DO ? Ordering Physician: Prakash Bower MD ?? Date of Service: 05/31/24 ?? Procedure(s): XR chest 2V ?? Accession Number(s): [id number] ? cc: Prakash Bower MD; Darlene Cherry [...] DD/ 1313 ? TD/TT: 05/31/24 1313 ? Plastic Finisher: ? Procedure Note Priyank, Image - 05/31/2024 [place] [address] XRay Report Signed Patient: Isaías Paiz#: [id number] 63 : 5Acct:[id number] Age/Sex: 68 / MADM Date: 05/31/24 Loc: STEPHANIE Attending Dr: Bella Boone DO Ordering Physician: Prakash Bower MD Date of Service: 05/31/24 Procedure(s): XR chest 2V Accession Number(s): [id number] cc: Prakash Bower MD; Darlene Cherry MD [...] 05/31/24 1313 DD/ 1313 TD/TT: 05/31/24 1313 Plastic Finisher: [facility] External Provider IMG XR PROCEDURES Final Result documented in this encounter Visit Diagnoses Not on filedocumented in this encounter Additional Health Concerns Assessment Noted Time PHQ-9 Depression Total Score: 0 11/04/19 23 9:58 AM EDT documented as of this encounter Care Teams Earrings Fabricator Relationship Specialty Start Date End Date Darlene Cherry MD [address] [place] [phone] PCP - General Family Medicine 12/29/17 documented as of this encounter
== END 2024-06-21 11:08 | disposition home or self-care (01) ==
PROVIDERS: PCP Internal Medicine; Visit Provider Internal Medicine
DX: E66.01 Morbid (severe) obesity due to excess calories (principal); G47.33 Obstructive sleep apnea (adult) (pediatric); G47.34 Idiopathic sleep related nonobstructive alveolar hypoventilation; J98.4 Other disorders of lung
CPT/HCPCS: 99213

== ENCOUNTER → 2024-06-21 10:27 | Outpatient (BNVA) | payer MEDICARE, MEDICAID, SELFPAY | PROVIDERS: PCP Internal Medicine; Visit Provider Internal Medicine | DX: J98.4 Other disorders of lung (principal); R09.02 Hypoxemia; E66.01 Morbid (severe) obesity due to excess calories; G47.33 Obstructive sleep apnea (adult) (pediatric); G47.34 Idiopathic sleep related nonobstructive alveolar hypoventilation; Z99.81 Dependence on supplemental oxygen; Z68.41 Body mass index [BMI] 40.0-44.9, adult | CPT/HCPCS: 99212 ==

== ENCOUNTER 2024-09-12 09:26 | Outpatient (AMB) | payer MEDICARE, MEDICAID, SELFPAY ==
[2024-09-12 09:39] VITALS: BP 124/70; PULSE 63; O2SAT 97; BMI 43.7
--- NOTE | 2024-09-12 09:39 | MHC.OFFVIS ---
Vital Signs 09/12/24 09:39 Height 5 ft 3 in Weight 246 lb 14.684 oz BMI 43.7 BP 124/70 Blood Pressure Location Lt brachial Position Sitting Pulse 63 Pulse Source Pulse Oximeter Pulse Oximetry (%) 97 Oxygen Delivery Method Room Air Intake Visit Reasons: o2 Dependent/Pneumonia Intake Note: pt is here for follow up and states he is doing good, not using oxygen at night, stopped mucinex. Fuse Coiler Required: No Allergies No Known Allergies [No Known Allergies*] Allergy (Verified 09/12/24 10:04) Medication List - Last Reconciled 09/12/24 by Prakash Bower MD acetaminophen ER 650 mg PO Q8H PRN albuterol sulfate 90 mcg/actuation 2 puffs inhalation Q4-6H PRN amlodipine 10 mg PO DAILY apixaban (Eliquis) 5 mg PO BID carvedilol 6.25 mg PO BID cholecalciferol (vitamin D3) 25 mcg PO DAILY furosemide 40 mg PO DAILY lisinopril 30 mg PO DAILY simvastatin 20 mg PO BEDTIME Do you need a note to return to daycare/school/sports/work: No HPI HPI o2 Dependent/Pneumonia: Details: This 59 years old gentleman is morbidly obese with current BMI of 44, He is here for follow-up after 2 months. He is a case of obstructive sleep apnea/nocturnal hypoxemia but could not use CPAP. And was prescribed O2 2 L/minute at night. He stopped using the O2 at night, saying that he sleeps good. He is also not using oxygen during the daytime and wants to have the portable cylinders out of his house. Claims that his breathing has been okay. His locomotion is slow so not enough to make him short of breath when he walks. He does have stasis edema of the legs which is controlled by taking Lasix 40 mg daily. He still has residual stasis dermatitis on both legs. [facility] Medical History Nocturnal hypoxemia Hypoxemia Restrictive lung disease MICKEY (obstructive sleep apnea) Morbid obesity Social History Household Members: Family Household Members Other:: Sister Gillian Housing: Apartment Do you presently have visiting nurse or other home services: No Patient Tobacco Use Status: Former Tobacco user service: No Review of Systems Const All systems reviewed & are unremarkable except as noted in HPI and below Eyes Reports no additional complaints ENT Reports no additional complaints Card Reports irregular heart rhythm, Reports leg edema and Reports dyspnea on exertion Resp Reports as per HPI and Reports dyspnea on exertion GI Reports no additional complaints Reports no additional complaints Musc Reports abnormal gait (HAS WEAKNESS OF LOWER EXTREMITIES AND DIFFICULTY IN AMBULATING.) and Reports muscle weakness (GENERAL) Skin/Breast Reports system reviewed and no additional complaints, except as documented Neuro Reports abnormal gait (HAS WEAKNESS OF LOWER EXTREMITIES AND DIFFICULTY IN AMBULATING.) Psych Reports no additional complaints Endo Reports no additional complaints Physical Exam Vital Signs: Last Vital Signs Pulse 63 09/12/24 09:39 BP 124/70 09/12/24 09:39 Pulse Ox 97 09/12/24 09:39 Oxygen Delivery Method Room Air 09/12/24 09:39 BMI result Body Mass Index 43.7 HE IS GROSSLY OBESE WITH LARGE NECK, Const General: comfortable, no acute distress, alert and awake Orientation/consciousness: patient oriented x3 HEENT Head: Yes normal to inspection General nose exam: No nasal polyps present and No nasal discharge present Face and sinus: Yes sinuses nontender Mouth: oropharynx abnormals (NARROW AND CROWDED MALLAMPATI CLASS 3) Throat: Yes posterior oropharynx normal Eyes General: appearance normal, both eyes and all related structures Neck Neck: Yes normal visual inspection, Yes no lymphadenopathy, Yes trachea midline, Yes no JVD and Yes other (NECK CIRCUMFERENCE 18 IN) Thyroid: Thyroid normal Chest Chest palpation & inspection: normal inspection of the chest, normal palpation of entire chest wall and no tenderness Resp Other: PERCUSSION NOTE IS DIFFICULT BECAUSE OF HIS GROSS OBESITY BREATH SOUNDS ARE DIMINISHED OVER THE BASILAR AREAS. NO CREPITATIONS OR WHEEZES ARE HEARD TODAY. Cardio Palpation: normal PMI Rate: regular rate Rhythm: regular rhythm Heart sounds: no gallops and no murmurs GI Palpation (GI): Soft to palpation, nontender, No hepatosplenomegaly present and no masses Auscultation: normal bowel sounds Back/Spine/Pelvis Thoracic/Lumbar Spine: thoracic and lumbar spine normal to inspection and thoraco-lumbar ROM limited Skin General skin exam: no rashes or lesions noted Neuro General: patient oriented x3, No gait normal (PATIENT NON AMBULATORY WAS USING WHEELCHAIR) and no focal motor deficits Cranial nerves: Yes CN's II-XII intact bilaterally Extrem General: Yes normal to inspection, Yes no calf tenderness and Yes venous stasis dermatitis (HE HAS SKIN CHANGES OF CHRONIC STASIS DERMATITIS, BUT THERE IS NO PITTING ) Psych Appearance: grossly normal and well kempt Speech and movement: Normal speech and movement present Assessment & Plan Assessment & Plan (1) Morbid obesity: Comment: PATIENT IS MORBIDLY OBESE, HE SAYS HE HAS ACTUALLY LOST SOME WEIGHT. HIS WEIGHT FLUCTUATES AND THAT DEPENDS UPON HOW MUCH FLUID HE RETAINS. HE IS ON LASIX. 40 MG DAILY HE TRIES TO WATCH HIS DIET BUT MAINLY TO RESTRICT THE SALT INTAKE. HE IS NOT ABLE TO DO MUCH EXERCISE. Code(s): E66.01 - Morbid (severe) obesity due to excess calories Category: Medical Plan: AGAIN DISCUSSED ABOUT DIET, HE CAN NOT AFFORD TO BUY LOW CARB DIET. WE JUST TALKED ABOUT CUTTING DOWN THE PORTIONS., AND RESTRICTING THE SALT INTAKE. (2) Restrictive lung disease: Comment: PATIENT IS EXPECTED TO HAVE MODERATELY SEVERE RESTRICTIVE PULMONARY DISORDER, SECONDARY TO HIS OBESITY, AND CONGESTIVE HEART FAILURE. Code(s): J98.4 - Other disorders of lung Category: Medical Plan: CONTINUE TO TAKE DEEP BREATHS AND DO DEEP BREATHING EXERCISES AT LEAST 2 OR 3 TIMES A DAY. (3) MICKEY (obstructive sleep apnea): Comment: HE DOES HAVE HISTORY OF OBSTRUCTIVE SLEEP APNEA AND WAS STARTED ON CPAP THERAPY BUT HE COULD NOT USE IT. WHILE IN THE HOSPITAL HE WAS NOTED TO HAVE NOCTURNAL HYPOXEMIA AND WAS SENT HOME WITH O2 2 L/MINUTE AT NIGHT. NOW HE WANTS TO GET RID OF THE CONCENTRATOR. Code(s): G47.33 - Obstructive sleep apnea (adult) (pediatric) Category: Medical Plan: I TALKED TO HIM AND EXPLAINED THAT HE DOES NEED TO USE O2 2 L/MINUTE AT NIGHT TO OVERCOME NOCTURNAL HYPOXEMIA. HE IS AGREEABLE TO USE IT. (4) Nocturnal hypoxemia: Comment: HE HAS NOCTURNAL HYPOXEMIA RESULT OF UNTREATED SLEEP APNEA. Code(s): G47.34 - Idiopathic sleep related nonobstructive alveolar hypoventilation Category: Medical Plan: ADVISED THAT HE WOULD NEED TO CONTINUE USING O2 2 L/MINUTE AND HE IS AGREEABLE. Coding Level of Care Code Est Pt Level 3 (53754) Diagnoses Morbid obesity E66.01 Restrictive lung disease J98.4 MICKEY (obstructive sleep apnea) G47.33 Nocturnal hypoxemia G47.34
--- OUTSIDE RECORDS SUMMARY | 2024-09-12 09:59 | XMS_ITS | Encounter Summary ---
Author Organization [employer] Address [address] [facility] 7t [place] [address] Care Team Providers Care Development Mechanic Name Role Phone Darlene Cherry MD Primary Care Provide r Reason for Visit * Reason Onset Date Comments Appointment Request 05/10/2024 Encounter Details Date Type Department Care Team ([facility] st Contact Info) Description 05/10/2024 Telephone [facility] [address] [place] [phone] Darlene Cherry MD [address] [place] [address] Appointment Request Social History Tobacco Use Types [...] 12:55 PM EST TC placed to patient [phone] in regards to below message. Patient did [...] because of the Weather. Contact pt at [phone] documented in this encounter Plan of Treatment Not on file documented as of this encounter Visit Diagnoses Not on filedocumented in this encounter Additional Health Concerns Assessment Noted Time PHQ-9 Depression Total Score: 0 11/04/19 9:58 AM EDT documented as of this encounter Care Teams Development Mechanic Relationship Specialty Start Date End Date Darlene Cherry MD [address] [place] [phone] PCP - General Family Medicine 12/29/17 documented as of this encounter
== END 2024-09-12 10:04 | disposition home or self-care (01) ==
LOC: HO.HPS 09:27
PROVIDERS: PCP Internal Medicine; Visit Provider Internal Medicine
DX: E66.01 Morbid (severe) obesity due to excess calories (principal); J98.4 Other disorders of lung; G47.33 Obstructive sleep apnea (adult) (pediatric); G47.34 Idiopathic sleep related nonobstructive alveolar hypoventilation
CPT/HCPCS: 99213

== ENCOUNTER → 2024-09-12 09:26 | Outpatient (BNVA) | payer MEDICARE, MEDICAID, SELFPAY | PROVIDERS: PCP Internal Medicine; Visit Provider Internal Medicine | DX: G47.33 Obstructive sleep apnea (adult) (pediatric) (principal); G47.34 Idiopathic sleep related nonobstructive alveolar hypoventilation; E66.01 Morbid (severe) obesity due to excess calories; J98.4 Other disorders of lung; Z68.41 Body mass index [BMI] 40.0-44.9, adult | CPT/HCPCS: 99212 ==

== ENCOUNTER 2025-01-15 09:03 | Outpatient (AMB) | payer MEDICARE, MEDICAID, SELFPAY ==
[2025-01-15 09:14] VITALS: BP 120/60; PULSE 50; O2SAT 97; BMI 43.9
--- NOTE | 2025-01-15 09:14 | A.OFFVIS_ITS ---
Vital Signs 01/15/25 09:14 Height 5 ft 3 in Weight 248 lb 0.321 oz BMI 43.9 BP 120/60 Blood Pressure Location Lt brachial Position Sitting Pulse 50 Pulse Source Pulse Oximeter Pulse Oximetry (%) 97 Oxygen Delivery Method Room Air Intake Visit Reasons: o2 Dependent/Pneumonia Intake Note: pt is here for follow up and states he is feeling good, using oxygen at night for about 3-4 hours and than takes it off. Bottom Brusher Required: No Bottom Brusher Services: Bottom Brusher Offered & Declined Filter Pulp Washer: Filter Pulp Washer offered & declined Allergies No Known Allergies (No Known Allergies*) Allergy (Verified 01/15/25 09:38) Medication List - Last Reconciled 01/15/25 by Prakash Bower MD acetaminophen ER 650 mg PO Q8H PRN albuterol sulfate 90 mcg/actuation 2 puffs inhalation Q4-6H PRN amlodipine 10 mg PO DAILY apixaban (Eliquis) 5 mg PO BID carvedilol 6.25 mg PO BID cholecalciferol (vitamin D3) 25 mcg PO DAILY furosemide 40 mg PO DAILY lisinopril 30 mg PO DAILY simvastatin 20 mg PO BEDTIME Do you need a note to return to daycare/school/sports/work: No HPI HPI o2 Dependent/Pneumonia: Details: This 69 years old gentleman with morbid obesity and diagnosis of obstructive sleep apnea/nocturnal hypoxemia, comes for follow-up after 4 months. He has not been able to use the CPAP. So he just uses O2 2 L/minute at night. He claims that just with plain oxygen he sleeps good but when he try to use CPAP he would not fall asleep. His weight remains grossly high and he is not able to lose weight. His walking is slow he uses cane and is because of his poor circulation in the legs. He denies cough or wheezing. [facility] Medical History Nocturnal hypoxemia Hypoxemia Restrictive lung disease MICKEY (obstructive sleep apnea) Morbid obesity Social History Household Members: Family Household Members Other:: Sister Gillian Housing: Apartment Do you presently have visiting nurse or other home services: No Patient Tobacco Use Status: Former Tobacco user service: No Review of Systems Const All systems reviewed & are unremarkable except as noted in HPI and below Eyes Reports no additional complaints ENT Reports no additional complaints Card Reports irregular heart rhythm, Reports leg edema and Reports dyspnea on exertion Resp Reports as per HPI and Reports dyspnea on exertion GI Reports no additional complaints Reports no additional complaints Musc Reports abnormal gait (HAS WEAKNESS OF LOWER EXTREMITIES AND DIFFICULTY IN AMBULATING.) and Reports muscle weakness (GENERAL) Skin/Breast Reports system reviewed and no additional complaints, except as documented Neuro Reports abnormal gait (HAS WEAKNESS OF LOWER EXTREMITIES AND DIFFICULTY IN AMBULATING.) Psych Reports no additional complaints Endo Reports no additional complaints Physical Exam Vital Signs: Last Vital Signs Pulse 50 01/15/25 09:14 BP 120/60 01/15/25 09:14 Pulse Ox 97 01/15/25 09:14 Oxygen Delivery Method Room Air 01/15/25 09:14 BMI result Body Mass Index 43.9 HE IS GROSSLY OBESE WITH LARGE NECK, Const General: comfortable, no acute distress, alert and awake Orientation/consciousness: patient oriented x3 HEENT Head: Yes normal to inspection General nose exam: No nasal polyps present and No nasal discharge present Face and sinus: Yes sinuses nontender Mouth: oropharynx abnormals (NARROW AND CROWDED MALLAMPATI CLASS 3) Throat: Yes posterior oropharynx normal Eyes General: appearance normal, both eyes and all related structures Neck Neck: Yes normal visual inspection, Yes no lymphadenopathy, Yes trachea midline, Yes no JVD and Yes other (NECK CIRCUMFERENCE 18 IN) Thyroid: Thyroid normal Chest Chest palpation & inspection: normal inspection of the chest, normal palpation of entire chest wall and no tenderness Resp Other: PERCUSSION NOTE IS DIFFICULT BECAUSE OF HIS GROSS OBESITY BREATH SOUNDS ARE DIMINISHED OVER THE BASILAR AREAS. NO CREPITATIONS OR WHEEZES ARE HEARD TODAY. Cardio Palpation: normal PMI Rate: regular rate Rhythm: regular rhythm Heart sounds: no gallops and no murmurs GI Palpation (GI): Soft to palpation, nontender, No hepatosplenomegaly present and no masses Auscultation: normal bowel sounds Back/Spine/Pelvis Thoracic/Lumbar Spine: thoracic and lumbar spine normal to inspection and thoraco-lumbar ROM limited Skin General skin exam: no rashes or lesions noted Neuro General: patient oriented x3, No gait normal (PATIENT NON AMBULATORY WAS USING WHEELCHAIR) and no focal motor deficits Cranial nerves: Yes CN's II-XII intact bilaterally Extrem General: Yes normal to inspection, Yes no calf tenderness and Yes venous stasis dermatitis (HE HAS SKIN CHANGES OF CHRONIC STASIS DERMATITIS, BUT THERE IS NO PITTING ) Psych Appearance: grossly normal and well kempt Speech and movement: Normal speech and movement present Results Reviewed Results Reviewed: overnight oximetry recording test pending Assessment & Plan Assessment & Plan (1) Morbid obesity: Comment: PATIENT IS MORBIDLY OBESE, HE IS NOT ABLE TO LOSE WEIGHT . HE TRIES TO WATCH HIS DIET BUT MAINLY TO RESTRICT THE SALT INTAKE. HE IS NOT ABLE TO DO MUCH EXERCISE. Code(s): E66.01 - Morbid (severe) obesity due to excess calories Category: Medical Plan: AGAIN TALKED TO HIM AND ADVISED TO CUT DOWN THE CALORIES INTAKE, TRY TO WALK DURING THE DAY MUCH POSSIBLE. (2) Restrictive lung disease: Comment: PATIENT IS EXPECTED TO HAVE MODERATELY SEVERE RESTRICTIVE PULMONARY DISORDER, SECONDARY TO HIS OBESITY, AND CONGESTIVE HEART FAILURE. Code(s): J98.4 - Other disorders of lung Category: Medical Plan: ADVISED TO DO DEEP BREATHING EXERCISES ABOUT 3 TIMES A DAY (3) MICKEY (obstructive sleep apnea): Comment: HE DOES HAVE HISTORY OF OBSTRUCTIVE SLEEP APNEA AND WAS STARTED ON CPAP THERAPY BUT HE COULD NOT USE IT. WHILE IN THE HOSPITAL HE WAS NOTED TO HAVE NOCTURNAL HYPOXEMIA AND WAS SENT HOME WITH O2 2 L/MINUTE AT NIGHT. HE CLAIMS THAT HE SLEEPS WELL WITH THE OXYGEN ON. Code(s): G47.33 - Obstructive sleep apnea (adult) (pediatric) Category: Medical Plan: ADVISED TO CONTINUE USING O2 2 L/MINUTE AT NIGHT. WE ARE TRYING TO CHECK HIS O2 SAT AT NIGHT ON ROOM AIR TO SEE IF THE OXYGEN SUPPLEMENTATION CAN BE STOPPED (4) Nocturnal hypoxemia: Comment: HE HAS NOCTURNAL HYPOXEMIA RESULT OF UNTREATED SLEEP APNEA. Code(s): G47.34 - Idiopathic sleep related nonobstructive alveolar hypoventilation Category: Medical Plan: ABOVE Coding Level of Care Code Est Pt Level 3 (63816) Diagnoses Morbid obesity E66.01 Restrictive lung disease J98.4 MICKEY (obstructive sleep apnea) G47.33 Nocturnal hypoxemia G47.34
--- OUTSIDE RECORDS SUMMARY | 2025-01-15 09:38 | XMS_ITS | Encounter Summary ---
Author Organization [facility] Address [address] [place] [address] Phone Care Team Providers Care Knit Goods Washer Name Role Phone Darlene Cherry MD Primary Care Provide r Reason for Visit * Reason Comments Med Refill Encounter Details Date Type Department Care Team (Late Contact Info) Description 08/15/2024 Refill [facility] [address] [place] [address] Petar Shafer MD [address] [phone] Social History Tobacco Use Types Packs/Day Years [...] on file documented as of this encounter Plan of Treatment Upcoming Encounters Date Type Department Care Team (Late st Contact Info) Description 06/07/2025 1:00 PM EST Office Visit [facility] [address] [place] [address] Petar Shafer MD [address] [phone] documented as of this encounter Visit Diagnoses Not on filedocumented in this encounter Care Teams Knit Goods Washer Relationship Specialty Start Date End Date Darlene Cherry MD [address] [place] [phone] PCP - General 04/29/20 documented as of this encounter
--- OUTSIDE RECORDS SUMMARY | 2025-01-15 09:38 | XMS_ITS | Encounter Summary ---
Author Organization [employer] Address [address] [facility] 7t [place] [address] Care Team Providers Care Farm Or Ranch Animal Caretaker Name Role Phone Darlene Cherry MD Primary Care Provide r Reason for Visit * Reason Onset Date Comments Appointment Request 05/10/2024 Encounter Details Date Type Department Care Team ([facility] st Contact Info) Description 05/10/2024 Telephone [facility] [address] [place] [phone] Darlene Cherry MD [address] [place] [address] Appointment Request Social History Tobacco Use Types [...] 12:55 PM EST TC placed to patient [phone] in regards to below message. Patient did [...] because of the Weather. Contact pt at [phone] documented in this encounter Plan of Treatment Upcoming Encounters Date Type Department Care Team (Late st Contact Info) Description 03/06/2025 9:00 AM EST Office Visit [facility] [address] [place] [address] Darlene Cherry MD [address] [place], [place] [phone] documented as of this encounter Visit Diagnoses Not on filedocumented in this encounter Additional Health Concerns Assessment Noted Time PHQ-9 Depression Total Score: 0 11/04/19 23 9:58 AM EDT documented as of this encounter Care Teams Farm Or Ranch Animal Caretaker Relationship Specialty Start Date End Date Darlene Cherry MD [address] [place] [address] PCP - General Family Medicine 12/29/17 documented as of this encounter
--- OUTSIDE RECORDS SUMMARY | 2025-01-15 09:38 | XMS_ITS | Encounter Summary ---
Author Organization [employer] Address [address] [facility] 7t [place] [address] Care Team Providers Care Windows Server Administrator Name Role Phone Darlene Cherry MD Primary Care Provide r Reason for Visit * Reason Onset Date Comments Nurse Triage 11/08/2023 Encounter Details Date Type Department Care Team ([facility] st Contact Info) Description 11/08/2023 Telephone [facility] [address] [place] [phone] Darlene Cherry MD [address] [place] [address] Nurse Triage Social History Tobacco Use Types [...] Description 03/06/2025 9:00 AM EST Office Visit [facility] [address] [place] [phone] Darlene Cherry MD [address] [place] [phone] documented as of this encounter Visit Diagnoses Not on filedocumented in this encounter Additional Health Concerns Assessment Noted Time PHQ-9 Depression Total Score: 0 11/04/19 23 9:58 AM EDT documented as of this encounter Care Teams Windows Server Administrator Relationship Specialty Start Date End Date Darlene Cherry MD [address] [place] [phone] PCP - General Family Medicine 12/29/17 documented as of this encounter
--- OUTSIDE RECORDS SUMMARY | 2025-01-15 09:38 | XMS_ITS | Encounter Summary ---
Author Organization [employer] Address [address] [facility] 7t [place] [address] Care Team Providers Care Shop Foreman Name Role Phone Darlene Cherry MD Primary Care Provide r Reason for Visit * Reason Onset Date Comments Prior Authorization 10/20/2023 Encounter Details Date Type Department Care Team ([facility] st Contact Info) Description 10/20/2023 Telephone [facility] [address] [place] [phone] Darlene Cherry MD [address] [place] [address] Prior Authorization Social History Tobacco Use Types [...] Description 03/06/2025 9:00 AM EST Office Visit [facility] [address] [place] [address] Darlene Cherry MD [address] [place] [address] documented as of this encounter Visit Diagnoses Not on filedocumented in this encounter Additional Health Concerns Assessment Noted Time PHQ-9 Depression Total Score: 0 11/04/19 23 9:58 AM EDT documented as of this encounter Care Teams Shop Foreman Relationship Specialty Start Date End Date Darlene Cherry MD [address] [place] [address] PCP - General Family Medicine 12/29/17 documented as of this encounter
--- OUTSIDE RECORDS SUMMARY | 2025-01-15 09:38 | XMS_ITS | Clinical Summary ---
Author Organization [facility] Address [address] [facility] [address] [address] [place] [address] Phone Care Team Providers Care Physical Scientist Name Role Phone Darlene Cherry MD Primary [...] by mouth 1 (one) time each day 01/06/2021 Active simvastatin (ZOCOR) 20 MG tabletIndicatio ns:Hypertension Take 1 tablet (20 mg total) by mouth 1 (one) time each day 90 tablet 12/21/2023 Active lisinopril (PRINIVIL,ZESTR IL) 30 MG tabletIndicatio ns:Hypertension Take 1 tablet (30 mg total) by mouth 1 (one) time each day 06/01/2024 Active Eliquis 5 MG tablet TAKE ONE TABLET BY MOUTH IN THE MORNING AND 1 TABLET IN THE EVENING. 180 tablet 2 08/20/2024 Active Active Problems Problem Noted Date Diagnosed [...] cardioversion 04/2009 Chronic anticoagulation with coumadin Immunizations Immunization Administration Dates Next Due Influenza Split High [...] Visit [facility] [address] [place] [phone] Petar Shafer MD [address] [facility] [address] [place] [phone] Health Maintenance Due Date Last Done Comments Colorectal Cancer Screening: Annual FOBT 10/27/2003 Colorectal Cancer Screening: Colonoscopy 10/27/2003 Colorectal Cancer Screening: Sigmoidoscopy 10/27/2003 Pneumococcal Vaccine: 50+ Years (3 of 3 - PCV20 or PCV21) 02/12/2020 12/18/2019, 10/03/2014 Influenza Vaccine (#1) 2024 4, 02/28/2021, 03/07/2019, Additional history exists Pneumococcal Vaccine: Peds (0 to 5 Years) and At-Risk Patients (6 to 49 Years) Discontinued 12/18/2019, 10/03/2014 Hepatitis B Vaccine Aged Out No longe r eligible based on patient's age to complete this topic Insurance [address] [place] [id number] Medicare Medicaid [place] [address] [place] [address] Medicare Medicaid [place] Care Teams Physical Scientist Relationship Specialty Start Date End Date Darlene Cherry MD [address] [place] [phone] PCP - General 04/29/20
--- OUTSIDE RECORDS SUMMARY | 2025-01-15 09:39 | XMS_ITS | Clinical Summary ---
Author Organization [employer] Address [address] [facility] 7t [place] [address] Care Team Providers Care Musical Performer Name Role Phone Darlene Cherry MD Primary Care Provide r Allergies No known active allergies Medications furosemide (Lasix) 40 MG tablet Take 1 tablet by mouth every 12 (twelve) hours. Active carvedilol (Coreg) 6.25 MG tablet Take 1 tablet by mouth every 12 (twelve) hours. Active apixaban (Eliquis) 5 MG tabletIndications :Atrial fibrillation and flutter (HCC) Take 1 tablet (5 mg) by mouth 2 times daily. 60 tablet 3 Active simvastatin (Zocor) 20 MG tablet Take 20 mg by mouth in the morning. 3 Active lidocaine (Lidoderm) 5 % patchIndications: Acute right-sided low back pain without sciatica Apply 1 patch topically Once per day. Remove & discard patch within 12 hours or as directed by MD. 30 patch 1 4 Active cyclobenzaprine (Flexeril) 10 MG tabletIndications :Acute right-sided low back pain without sciatica Take 1 tablet (10 mg) by mouth 3 times daily for 10 days. 30 tablet 4 Active cyclobenzaprine (Flexeril) 10 MG tabletIndications :Acute right-sided low back pain without sciatica Take 1 tablet (10 mg) by mouth 3 times daily for 10 days. 30 tablet 4 Active albuterol 108 (90 Base) MCG/ACT inhaler Inhale 1 puff Every 4-6 hours as needed for wheezing or shortness of breath. 5 Active lisinopril 30 MG tablet Take 1 tablet by mouth Once per day. Active loratadine (Claritin) 10 MG tablet Take 1 tablet (10 mg) by mouth Once per day. 30 tablet 3 5 05/04/19 Active fluticasone (Flonase) 50 MCG/ACT nasal spray [...] split. 30 tablet 5 05/04/19 26 Active amLODIPine (Norvasc) 10 MG tablet TAKE ONE TABLET BY MOUTH EVERY DAY 90 tablet 3 Active D3-1000 25 MCG (1000 UT) capsule TAKE ONE CAPSULE BY MOUTH EVERY DAY. 90 capsule 1 5 Active Active Problems Problem Noted Date Diagnosed [...] of visual image 11/03/2022 Stasis dermatitis 11/03/2022 Class 3 severe obesity due t o excess calories with serious comorbidity and body mass index (BMI) of 45.0 to 49.9 in adult 11/03/2022 Assessment & Plan (08/22/2024 9:59 AM EDT): Today extensive discussion was done about life style modifications I advise healthy diet (low calorie) and cardiovascular exercise Assessment & Plan (11/03/2022 12:14 PM EDT): Today extensive discussion was done about life style modifications I advise healthy diet (low calorie) and cardiovascular exercise Venous stasis 04/08/2018 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 Continue with a low sodium diet and regular exercise as tolerated. For BP < or = to 139/89 (or 129/79 for diabetic patients) continue current medication regimen and follow up with PCP in as schedule . For BP > or = to 140/90 (or 130/80 for diabetic patients) increase Lisinopril to 40 mg once a day Follow up with the Nurse for second blood pressure check in 2 weeks. During second Nurse visit: For BP < or = to 139/89 (or 129/79 for diabetic patients) continue current medication regimen and follow up with the PCP in as schedule . For BP > or = to 140/90 (or 130/80 for diabetic patients) increase Add hydrochlorothiazide 12.5mg daily Follow up with the PCP in as schedule . Assessment & Plan (05/25/2024 6:23 PM EST): [...] Osteoarthritis of knee 04/19/1959 Permanent atrial fibrillation ([facility]) 04/19/18 59 Assessment & Plan (05/25/2024 6:23 PM EST): [...] and carvedilol Continue to follow with cardiology Resolved Problems Problem Noted Date Diagnosed Date Resolved Date Venous stasis ulcer of left calf limited to breakdown of skin with varicose veins ([facility]) 11/03/2022 08/22/2024 Encounters Date Type Department Care Team Description 11/28/2024 Refill [facility] [address] [place], [place] [phone] Darlene Cherry MD 11/23/2024 Refill [facility] [address] [place] [address] Darlene Cherry MD 11/09/2024 Telephone [facility] [address] [place], [place] [phone] Darlene Cherry MD requesting call back from Last 3 Months Immunizations Immunization Administration Dates Next Due Influenza High-dose Quadriva [...] Date Recorded Patient Health Questionnaire-9 Score 0 08/22/2024 Patient Health Questionnaire-9 Score 0 08/22/2024 Last PHQ-9: Questionnaire Data Not on file 0 08/22/2024 Housing Stability Answer Date Recorded What is [...] Date Recorded Patient Health Questionnaire-2 Score 0 08/22/2024 Internet Access Answer Date Recorded Internet Access Q1 No 08/22/2024 Internet Access Q2 I do not want or need it 09/2024 Sex and Gender Information Value Date Recorded Sex Assigned at Male 02/16/2022 10:17 AM EDT Legal Sex Male 10:17 AM EDT Gender Identity Male 02/16/2022 10:17 AM EDT Sexual Orientation Straight 02/16/2022 10 :17 AM EDT Last Filed Vital Signs Vital Sign Reading Time Taken Comments Blood Pressure 158/82 08/22/2024 9:27 AM EDT Pulse 51 08/22/2024 9:07 AM EDT Temperature 35.9 C (96.6 F) 08/22/2024 9:07 AM EDT Respiratory Rate 20 08/22/2024 9:07 AM EDT Oxygen Saturation 92% 05/04/2024 10:40 AM EST Inhaled Oxygen Concentration - - Weight 112 kg (247 lb 3.2 oz) 08/22/2024 9:07 AM EDT Height 160 cm (5' 3 ) 08/22/2024 9:07 AM EDT Body Mass Index 43.79 08/22/2024 9:07 AM EDT Plan of Treatment Upcoming Encounters Date Type Department Care Team (Late st Contact Info) Description 03/06/2025 9:00 AM EST Office Visit [facility] [address] [place], [place] [phone] Darlene Cherry MD [address] [place], [place] [phone] Health Maintenance Due Date Last Done Comments CT Colonography 1954 Colonoscopy 1954 FIT 1954 Sigmoidoscopy 1954 Hepatitis C Screening 1972 FOBT 11/15/2023 11/14/2022 DTaP/Tdap/Td Vaccines (2 - Td or Tdap) 10/03/2024 10/03/2014, 06/23/2014 Pneumococcal Vaccine: 50+ Years (3 of 3 - PCV20 or PCV21) 12/17/2024 12/18/2019, 10/03/2014 COVID-19 Vaccine ( season) 2024 01/19/2024, 04/23/2023, 02/20/2022, Additional history exists Influenza Vaccine (#1) 2024 , 01/13/2023, 02/28/2021, Additional history exists Alcohol/Substance Use Screening 08/22/2025 08/22/2024 Depression Screening 08/22/2025 08/22/2024, 08/23/19 SDOH Screening 08/22/2025 08/22/2024 Tobacco Screening 08/22/2025 08/22/2024 Colorectal Cancer Screening 11/14/2025 FIT DNA/Cologuard 11/14/2025 11/14/2022 Lipid Panel 11/04/2027 11/03/2022, 12/11/2020 RSV Patients and Patients Aged 60 years or older Completed 04/30/2023 Zoster Vaccines Completed 07/09/2023, 04/19, 04/29/2016 HIB Vaccines Aged Out No longer eligi [...] patient's age to complete this topic Meningococcal B Vaccine Aged Out No l onger eligible based on patient's age to complete [...] Procedure Name Priority Date/Time Associated Diagnosis Comments LIPID PANEL, STANDARD Routine 11/03/2022 11:14 AM EDT Hypertension, unspecified type from Last 3 Months or Most Recently Relevant to Health Maintenance Results * Lipid Panel, Standard (11/03/2022 11:14 AM EDT) Triglycerides 56 mg/dL [facility] Comment:Desirable Triglyceri de: less than 150 mg/dLBorderline High Triglyceride 150-199 mg/dLHigh Triglyceride: 200-499 mg/dLVery High Triglyceride: greater than or equal to 5OO mg/dL Cholesterol 122 mg/dL [facility] Comment:Desirable Cholestero l: less than 200 mg/dLBorderline High Cholesterol: 200-239 mg/dLHigh Cholesterol: greater than 239 mg/dL LDL Cholesterol Calculated 66 mg/dl [facility] Comment:Desirable LDL: less than 100 mg/dLNear Optimal/Above Optimal LDL: 110- 129 mg/dLBorderline High LDL: 130-159 mg/dLHigh LDL: 160-189 mg/dLVery High LDL: greater than or equal to 190 mg/dL HDL Cholesterol 45 mg/dL [facility] Comment:Desirable HDL: great er than 40 mg/dL Note: This HDL assay may give artificially low results in patients with liver disease. Blood Venous blood specimen / Unknown 11/03/2022 11:14 AM EDT 11/03/2022 1:32 PM EDT us Darlene Blas MD LAB BLOOD ORDERABLES Final Result [facility] [address] [place] [address] [phone] from Last 3 Months or Most Recently Relevant to Health Maintenance Insurance STANDARD [place] [address] [place] [phone] Care Teams Musical Performer Relationship Specialty Start Date End Date Darlene Cherry MD [address] [place] [phone] PCP - General Family Medicine 12/29/17
== END 2025-01-15 09:35 | disposition home or self-care (01) ==
LOC: HO.HPS 09:04
PROVIDERS: PCP Internal Medicine; Visit Provider Internal Medicine
DX: E66.01 Morbid (severe) obesity due to excess calories (principal); J98.4 Other disorders of lung; G47.33 Obstructive sleep apnea (adult) (pediatric); G47.34 Idiopathic sleep related nonobstructive alveolar hypoventilation
CPT/HCPCS: 99213

== ENCOUNTER → 2025-01-15 09:03 | Outpatient (BNVA) | payer MEDICARE, MEDICAID, SELFPAY | PROVIDERS: PCP Internal Medicine; Visit Provider Internal Medicine | DX: G47.34 Idiopathic sleep related nonobstructive alveolar hypoventilation (principal); G47.33 Obstructive sleep apnea (adult) (pediatric); J98.4 Other disorders of lung; E66.01 Morbid (severe) obesity due to excess calories; Z99.81 Dependence on supplemental oxygen; Z87.891 Personal history of nicotine dependence | CPT/HCPCS: 99212 ==